=== PATIENT | male | born 1955 | race American Indian/Alaskan Native ===

== ENCOUNTER 2020-10-27 10:17 | Emergency (ER) | payer MEDICARE, MEDICAID, SELFPAY ==
--- NOTE | 2020-10-27 | ECG_ITS ---
Test Reason : CHEST PAIN Blood Pressure : / mmHG Vent. Rate : 077 BPM Atrial Rate : 077 BPM P-R Int : 166 ms QRS Dur : 102 ms QT Int : 400 ms P-R-T Axes : 031 -13 184 degrees QTc Int : 452 ms Sinus rhythm with frequent Premature ventricular complexes Minimal voltage criteria for LVH, may be normal variant ST & T wave abnormality, consider anterolateral ischemia Abnormal ECG When compared with ECG of 27-OCT-2020 10:24, T wave inversion now evident in Anterior leads Referred By: Neema Nesbitt Electronically Signed By:VIET ROUSE
[2020-10-27 10:36] VITALS: BP 133/93; PULSE 86; RESP 18; TEMP 36.7; O2SAT 95; BMI 38.3
--- NOTE | 2020-10-27 10:42 | ECG_ITS ---
Test Reason : DAVIAN PAIN Blood Pressure : / mmHG Vent. Rate : 078 BPM Atrial Rate : 078 BPM P-R Int : 168 ms QRS Dur : 102 ms QT Int : 382 ms P-R-T Axes : 032 -26 163 degrees QTc Int : 435 ms Sinus rhythm with frequent Premature ventricular complexes Moderate voltage criteria for LVH, may be normal variant ST & T wave abnormality, consider lateral ischemia Abnormal ECG No previous ECGs available Referred By: Neema Nesbitt Electronically Signed By:VIET ROUSE
--- NOTE | 2020-10-27 10:43 | ED_ITS ---
HPI - Chest Pain General Chief Complaint: Chest Pain Stated Complaint: chest pain Time Seen by Provider: 10/27/20 10:31 Source: patient Mode of arrival: ambulatory Limitations: no limitations History of Present Illness HPI narrative: Patient comes emergency room complaining of right-sided chest pain. Patient states he has been having intermittent right-sided chest pain, lasting up to 2 seconds at a time. Pain is nonradiating. Patient denies shortness of breath, no cough, no vomiting or diarrhea. At this time, patient states that he is asymptomatic. His symptoms started since last night, symptoms have been ongoing more than 12 hours. Patient denies history of cardiac disease or pulmonary issues. Related Data Previous Rx's Medication Instructions Recorded metoprolol succinate 50 mg 50 mg PO DAILY #30 tab 10/27/20 tablet,extended release 24 hr (Toprol XL) Allergies Allergy/AdvReac Type Severity Reaction Status Date / Time No Known Allergies Allergy Verified 10/27/20 10:42 Review of Systems Review of Systems: Constitutional : No Weight loss, No Fever, No Chills, No Night Sweats, No Fatigue, No Malaise ENT/Mouth : No Hearing loss, No Ear Pain, No Nasal Congestion, No Sinus Pain, No Hoarseness, No sore throat, No Rhinorrhea, No Swallowing Difficulty Eyes: No Eye Pain, No Swelling, No Redness, No Foreign Body, No Discharge, No Vision Changes Cardiovascular : Intermittent chest pain, sharp, right-sided, nonradiating, No SOB, No Dyspnea on Exertion, No Orthopnea, No Edema, No Palpitations Respiratory : No Cough, No Sputum, No Wheezing, No Smoke Exposure, No Dyspnea Gastrointestinal : No Nausea, No Vomiting, No Diarrhea, No Constipation, No abdominal Pain, No Hematochezia, No Melena Genitourinary : no irregular bleeding, No Dysuria, No Urinary Frequency, No Hematuria, No Urinary Incontinence, No Urgency, No Flank Pain, No Urinary Flow Changes, No Hesitancy Musculoskeletal : No joint pain, No Myalgias, No Joint Swelling Skin : No Skin Lesions, No rash Neuro : No Weakness, No Numbness, No Paresthesias, No Loss of Consciousness, No Dizziness, No Headache Psych : No Anxiety/Panic, No Depression, No SI/HI/AH/VH, No Social Issues, Heme/Lymph: No Bruising, No Bleeding,No Lymphadenopathy Endocrine : No Polyuria, No Polydipsia, No Temperature Intolerance [facility] Social History Social History Advance Directives: No Advance Directives Information Provided: No Physical Exam Vital Signs: Vital Signs: Last Vital Signs Temp 97.6 F 10/27/20 13:43 Pulse 68 10/27/20 13:43 Resp 16 10/27/20 13:43 BP 140/88 H 10/27/20 13:43 Pulse Ox 95 10/27/20 13:43 Body Mass Index 38.3 Const: Other: Appearance: Alert. Oriented X3. No acute distress. Eyes: Pupils equal, round and reactive to light. ENT: Pharynx normal. Neck: Normal inspection. Neck supple. No lymph nodes noted. No crepitus CVS: Normal heart rate and rhythm. Pulses normal. Normal S1 and S2 Respiratory: No respiratory distress. Breath sounds normal. No Wheezing. No rales Abdomen: Soft and nontender. No rigidity. No distention. good BS x4 Skin: Skin warm and dry. Normal skin color. Normal skin turgor. Extremities: No lower extremity edema. No Lacerations. No Rash Neuro: Oriented X 3. No motor deficit. No sensory deficit. Moving all extermities. No slurred speech. Course Course Course Narrative: Patient complaining now of rib pain on the right side. Patient given Tylenol. Patient seems to be having symptomatic PVCs, chest discomfort correlates with the monitor when he has PVCs. I discussed the EKG and troponin with Dr. Doll, we will go ahead and obtain a 2nd troponin. If negative, patient can be discharged with 50 mg of metoprolol and follow up with Cardiology Troponin x2 negative. MDM - Chest Pain Lab Data Result diagrams: 10/27/20 11:07 10/27/20 11:07 Labs: Lab Results 10/27/20 10/27/20 10/27/20 Range/Units 11:07 11:07 11:07 WBC 8.5 (4.8-10.8) X10*3/uL RBC 5.41 (4.60-5.80) X10*6/uL Hgb 16.2 (14.0-18.0) g/dl Hct 48.0 (42-52) % MCV 88.7 (80-98) fL MCH 29.9 (27.0-33.0) pg MCHC 33.8 (31.0-36.0) g/dl RDW 12.6 (11.0-16.0) % Plt Count 194 (160-400) X10*3/uL MPV 10.7 (9.4-12.4) fL Immature Gran % (Auto) 0.4 (0.0-0.4) % Neut % (Auto) 59.5 (45-73) % Lymph % (Auto) 32.0 (20-40) % Bailey % (Auto) 6.5 (2-11) % Eos % (Auto) 1.2 (0-4) % Baso % (Auto) 0.4 (0-2) % Lymph # (Auto) 2.7 (1.2-4.9) X10*3/uL Bailey # (Auto) 0.6 (0.1-1.2) X10*3/uL Eos # (Auto) 0.1 (0.0-0.4) X10*3/uL Baso # (Auto) 0.0 (0.0-0.2) X10*3/uL Abs Immat Gran (auto) 0.03 (0.00-0.03) X10*3/uL Absolute Neuts (auto) 5.0 (2.0-8.3) X10*3/uL Absolute Nucleated RBC 0.000 (0.0-0.012) X10*3/uL Nucleated RBC % (auto) 0.0 (0.0-0.2) /100WBC Sodium 139 (135-145) mmol/L Potassium 3.7 (3.3-5.1) mmol/L Chloride 104 (96-108) mmol/L Carbon Dioxide 28 (22-29) mmol/L Anion Gap 11 L (12-20) BUN 10 (9-16) mg/dL Creatinine 0.60 (0.5-1.4) mg/dL Estim Creat Clear Calc 140.2 Estimated GFR > 60 Random Glucose 144 H (60-115) mg/dL Calcium 9.2 (8.4-10.2) mg/dL Total Bilirubin 0.8 (0.0-1.0) mg/dL Direct Bilirubin 0.2 (0.0-0.5) mg/dL AST 25 (5-37) U/L ALT 28 (0-40) U/L Alkaline Phosphatase 105 (39-117) U/L Troponin I High Sens < 3.5 (<3.5-35.0) ng/L Total Protein 7.3 (6.5-8.0) g/dL Albumin 4.0 (3.5-5.0) g/dL Urine Color Urine Appearance Urine pH (5.0-8.0) Ur Specific [place] (1.005-1.025) Urine Protein (NEG-TRACE) MG/DL Urine Glucose (UA) (NEG) MG/DL Urine Ketones (NEG) MG/DL Urine Blood (NEG) Urine Nitrite (NEG) Ur Leukocyte Esterase (NEG) Urine RBC (0) /HPF Urine WBC (0-4) /HPF Ur Squamous Epith Cells /LPF Urine Bacteria /LPF 10/27/20 10/27/20 Range/Units 14:07 14:18 WBC (4.8-10.8) X10*3/uL RBC (4.60-5.80) X10*6/uL Hgb (14.0-18.0) g/dl Hct (42-52) % MCV (80-98) fL MCH (27.0-33.0) pg MCHC (31.0-36.0) g/dl RDW (11.0-16.0) % Plt Count (160-400) X10*3/uL MPV (9.4-12.4) fL Immature Gran % (Auto) (0.0-0.4) % Neut % (Auto) (45-73) % Lymph % (Auto) (20-40) % Bailey % (Auto) (2-11) % Eos % (Auto) (0-4) % Baso % (Auto) (0-2) % Lymph # (Auto) (1.2-4.9) X10*3/uL Bailey # (Auto) (0.1-1.2) X10*3/uL Eos # (Auto) (0.0-0.4) X10*3/uL Baso # (Auto) (0.0-0.2) X10*3/uL Abs Immat Gran (auto) (0.00-0.03) X10*3/uL Absolute Neuts (auto) (2.0-8.3) X10*3/uL Absolute Nucleated RBC (0.0-0.012) X10*3/uL Nucleated RBC % (auto) (0.0-0.2) /100WBC Sodium (135-145) mmol/L Potassium (3.3-5.1) mmol/L Chloride (96-108) mmol/L Carbon Dioxide (22-29) mmol/L Anion Gap (12-20) BUN (9-16) mg/dL Creatinine (0.5-1.4) mg/dL Estim Creat Clear Calc Estimated GFR Random Glucose (60-115) mg/dL Calcium (8.4-10.2) mg/dL Total Bilirubin (0.0-1.0) mg/dL Direct Bilirubin (0.0-0.5) mg/dL AST (5-37) U/L ALT (0-40) U/L Alkaline Phosphatase (39-117) U/L Troponin I High Sens < 3.5 (<3.5-35.0) ng/L Total Protein (6.5-8.0) g/dL Albumin (3.5-5.0) g/dL Urine Color YELLOW Urine Appearance CLEAR Urine pH 6.0 (5.0-8.0) Ur Specific [place] <= 1.005 (1.005-1.025) Urine Protein NEG (NEG-TRACE) MG/DL Urine Glucose (UA) NEG (NEG) MG/DL Urine Ketones NEG (NEG) MG/DL Urine Blood TRACE (NEG) Urine Nitrite NEG (NEG) Ur Leukocyte Esterase TRACE H (NEG) Urine RBC 0-2 (0) /HPF Urine WBC 0-2 (0-4) /HPF Ur Squamous Epith Cells TRACE /LPF Urine Bacteria NONE /LPF ECG Data ECG #1: Attestation: I personally reviewed and interpreted this ECG as follows: (Center rhythm, frequent PVCs, heart rate 78, voltage criteria for left ventricular hypertrophy, T-wave abnormalities in V2 through V6, QTC 435) ECG #2: Attestation: I personally reviewed and interpreted this ECG as follows: (EKG unchanged from 10:24am) Discharge Plan Discharge Clinical Impression: Atypical chest pain Patient Disposition: Home, Self-Care Instructions: Chest Pain (ED) Additional Instructions: Please follow-up with your primary care physician tomorrow. If you have any worsening or new symptoms, please return to the emergency room or call 911 Prescriptions: New metoprolol succinate [Toprol XL] 50 mg tablet extended release 24 hr 50 mg PO DAILY Qty: 30 RF: 0 Referrals: Eric Doll MD [Physician] - 2 days
[2020-10-27] MEDS: Aspirin Enteric Coated 325 MG TABLET.DR PO (10:58)
[2020-10-27 11:12] LABS: Basophils Percent Auto 0.4 % (0-2); Eosinophils Absolute Auto 0.1 X10*3/uL (0.0-0.4); Eosinophils Percent Auto 1.2 % (0-4); Hemoglobin 16.2 g/dl (14.0-18.0); Imm Gran Abs Auto 0.03 X10*3/uL (0.00-0.03); Imm Gran Pct Auto 0.4 % (0.0-0.4); Lymphocytes Absolute Auto 2.7 X10*3/uL (1.2-4.9); MANUAL DIFF FLAG NO; Mean Corpuscular HGB Conc 33.8 g/dl (31.0-36.0); Mean Corpuscular Hemoglobin 29.9 pg (27.0-33.0); Mean Corpuscular Volume 88.7 fL (80-98); Mean Platelet Volume 10.7 fL (9.4-12.4); Monocytes Absolute Auto 0.6 X10*3/uL (0.1-1.2); Monocytes Percent Auto 6.5 % (2-11); Neutrophils Percent Auto 59.5 % (45-73); Platelet Count 194 X10*3/uL (160-400); Red Blood Count 5.41 X10*6/uL (4.60-5.80); Red Cell Distribution Width 12.6 % (11.0-16.0); White Blood Count 8.5 X10*3/uL (4.8-10.8)
[2020-10-27 11:15] VITALS: PULSE 85
[2020-10-27 11:31] LABS: Alanine Aminotransferase 28 U/L (0-40); Alkaline Phosphatase 105 U/L (39-117); Anion Gap 11 (12-20); Aspartate Amino Transferase 25 U/L (5-37); Bilirubin Direct 0.2 mg/dL (0.0-0.5); Bilirubin Total 0.8 mg/dL (0.0-1.0); Blood Urea Nitrogen 10 mg/dL (9-16); Calcium 9.2 mg/dL (8.4-10.2); Carbon Dioxide 28 mmol/L (22-29); Chloride 104 mmol/L (96-108); Creatinine Clr Calc Pharmacy 140.2; Estimated Glomerular Filt Rate > 60; Glucose Random 144 mg/dL (60-115); Potassium 3.7 mmol/L (3.3-5.1); Sodium 139 mmol/L (135-145); Total Protein 7.3 g/dL (6.5-8.0)
[2020-10-27 11:32] LABS: Troponin-I High Sensitivity < 3.5 ng/L (<3.5-35.0)
[2020-10-27 13:43] VITALS: BP 140/88; PULSE 68; RESP 16; TEMP 36.4; O2SAT 95
[2020-10-27] MEDS: traMADoL HCL 50 MG TABLET PO (14:02)
[2020-10-27 14:26] LABS: Glucose Urine UA NEG (NEG); Leukocyte Esterase Urine TRACE (NEG); Nitrite Urine NEG (NEG); Specific Gravity - Urine <= 1.005 (1.005-1.025); UACC Culture Trigger YES; Urine Blood TRACE (NEG); Urine Ketones NEG (NEG); Urine Protein NEG (NEG-TRACE)
[2020-10-27 14:27] LABS: Appearance Urine CLEAR; Color Urine YELLOW
[2020-10-27 14:32] LABS: Troponin-I High Sensitivity < 3.5 ng/L (<3.5-35.0)
[2020-10-27 14:49] LABS: RBC Urine 0-2 /HPF (0); Squamous Epithelial Cell Urine TRACE /LPF; WBC Urine 0-2 /HPF (0-4)
== END 2020-10-27 16:08 | disposition home or self-care (01) ==
PROVIDERS: Emergency Provider Emergency Medicine
DX: R07.89 Other chest pain (principal); Z79.899 Other long term (current) drug therapy
CPT/HCPCS: 36415; 80048; 80076; 81001; 84484; 85025; 87086; 93005; 99283; 99285

== ENCOUNTER → 2020-11-02 08:35 | Outpatient (BNVA) | payer MEDICARE, MEDICAID, SELFPAY | PROVIDERS: Visit Provider Internal Medicine Cardiovascular Disease | DX: I49.3 Ventricular premature depolarization (principal); I10 Essential (primary) hypertension; R07.89 Other chest pain | CPT/HCPCS: 99202 ==

== ENCOUNTER → 2020-12-29 13:23 | Outpatient (BNVA) | payer MEDICARE, MEDICAID, SELFPAY | PROVIDERS: Visit Provider Internal Medicine Cardiovascular Disease ==

== ENCOUNTER 2021-04-28 11:22 | Emergency (ER) | payer MEDICARE, MEDICAID, SELFPAY ==
--- NOTE | ~2021-04-28 | CT_ITS ---
EXAMINATION: CT ABDOMEN AND PELVIS WITH CONTRAST CLINICAL INFORMATION: Lower abdominal pain and diarrhea COMPARISON: None TECHNIQUE: Multidetector volumetric images were obtained from the superior aspect of the liver through the pubic symphysis following administration 85 mL of Omnipaque 350 intravenous contrast. Sagittal and coronal reformatted images were obtained on the technologist's workstation. Oral contrast: Yes This CT examination was performed using dose optimization techniques as appropriate, variously including the following: *Automated exposure control *Adjustment of mA and/or kV according to patient size (this includes techniques or standardized protocols for targeted exams where dose is matched to indication/reason for exam; i.e. extremities or head) *Use of iterative reconstruction technique DLP: 798 mGy-cm FINDINGS: LUNG BASES: The visualized lung bases are unremarkable. LIVER, GALLBLADDER, AND BILIARY TREE: The liver is low in attenuation suggestive of fatty infiltration. No focal liver lesion is seen. The gallbladder is been removed. There is no biliary duct dilatation. PANCREAS: Unremarkable. SPLEEN: Unremarkable. ADRENAL GLANDS: Unremarkable. KIDNEYS AND URETERS: There is a 4 mm stone in the lower pole the right kidney. The overlying cortical thinning or scarring. There are 2 small left renal cyst. No imaging follow-up needed. BLADDER: Not optimally distended. There may be mild diffuse bladder wall thickening. GASTROINTESTINAL TRACT: There is wall thickening of the left colon, sigmoid colon and rectum suggestive of mild proctocolitis. Vasa recta. Prominent inflammatory colitis should. No evidence of obstruction, perforation or abscess is seen. The appendix is normal. Small bowel is normal. ABDOMINAL WALL: There is a small umbilical hernia containing fat. LYMPH NODES: Normal. VASCULAR: Unremarkable. PELVIC VISCERA: Unremarkable. OSSEOUS STRUCTURES: There are postsurgical changes to the lower lumbar spine. CT/CT abdomen pelvis w con IMPRESSION: Wall thickening of the distal colon and rectum suggestive of proctocolitis. Small right renal stone. Left renal cyst. Fatty liver. Fleischner guidelines were followed.
[2021-04-28 11:26] VITALS: BP 183/112; PULSE 84; RESP 18; TEMP 36.6; O2SAT 95; BMI 44.6
[2021-04-28 11:57] LABS: MANUAL DIFF FLAG NO
[2021-04-28 12:04] LABS: Basophils Percent Auto 0.3 % (0-2); Eosinophils Absolute Auto 0.1 X10*3/uL (0.0-0.4); Eosinophils Percent Auto 0.9 % (0-4); Hematocrit 52.1 % (42.0-52.0); Imm Gran Abs Auto 0.03 X10*3/uL (0.00-0.03); Imm Gran Pct Auto 0.3 % (0.0-0.4); Lymphocytes Absolute Auto 3.1 X10*3/uL (1.2-4.9); Lymphocytes Percent Auto 34.8 % (20-40); Mean Corpuscular HGB Conc 32.6 g/dl (31.0-36.0); Mean Corpuscular Hemoglobin 29.1 pg (27.0-33.0); Mean Corpuscular Volume 89.2 fL (80.0-98.0); Mean Platelet Volume 10.6 fL (9.4-12.4); Monocytes Absolute Auto 0.6 X10*3/uL (0.1-1.2); Monocytes Percent Auto 6.3 % (2-11); Neutrophils Absolute Auto 5.2 x10*3/uL (2.0-8.3); Neutrophils Percent Auto 57.4 % (45-73); Platelet Count 197 X10*3/uL (160-400); Red Blood Count 5.84 X10*6/uL (4.60-5.80); Red Cell Distribution Width 12.7 % (11.0-16.0)
[2021-04-28 12:22] LABS: Anion Gap 11 (12-20); Blood Urea Nitrogen 10 mg/dL (9-16); Calcium 9.5 mg/dL (8.4-10.2); Carbon Dioxide 29 mmol/L (22-29); Chloride 103 mmol/L (96-108); Creatinine Clr Calc Pharmacy 101.4; Estimated Glomerular Filt Rate > 60; Glucose Random 159 mg/dL (60-115); Potassium 3.7 mmol/L (3.3-5.1); Sodium 139 mmol/L (135-145)
--- NOTE | 2021-04-28 13:06 | ED_ITS ---
HPI - Abdominal Pain General Chief Complaint: Abdominal Pain Stated Complaint: Lower abd pain Time Seen by Provider: 04/28/21 13:06 Source: patient Mode of arrival: ambulatory Limitations: no limitations History of Present Illness HPI narrative: 65 yo male with history of HTN, PVC's, atypical chest pain who presents to the ER with 2 days of lower abdominal pain and non-bloody diarrhea. He reports the pain is constant and in his entire lower abdomen. He has had for 5 bouts of loose stools today. No nausea or vomiting. Denies fever or chills. No one else at home is sick. He denies any URI symptoms. MD elicited complaint: abdominal pain Pertinent past history: none Onset (ago): day(s) (2) Pain Consistency: constant Location: RLQ and LLQ Severity: moderate Quality: aching Radiation: none Migration to: no migration Exacerbating factors: nothing Relieving factors: nothing Associated symptoms: diarrhea Related Data Home Medications Medication Instructions Recorded Confirmed amlodipine 5 mg tablet 5 mg PO DAILY 11/02/20 11/02/20 Previous Rx's Medication Instructions Recorded levofloxacin 500 mg tablet 500 mg PO DAILY #7 tab 04/28/21 metronidazole 500 mg tablet 500 mg PO BID 10 Days #20 tab 04/28/21 Allergies Allergy/AdvReac Type Severity Reaction Status Date / Time No Known Allergies Allergy Verified 04/28/21 11:29 Review of Systems Review of Systems Constitutional: No Fever, No Chills ENT/Mouth: No sore throat, No Rhinorrhea, No Swallowing Difficulty Eyes: No Eye Pain, No Swelling, No Redness Cardiovascular: No Chest Pain, No SOB, No Orthopnea, No Edema Respiratory: No Cough, No Sputum, No Wheezing, No dyspnea Gastrointestinal: No Nausea, No Vomiting, + Diarrhea, + abdominal Pain, No Hematochezia, No Melena Genitourinary: No Dysuria, No Urinary Frequency, No Hematuria, +erectile d ysfunction Musculoskeletal: No joint pain, No Myalgias Skin: No Skin Lesions, No rash Neuro: No Weakness, No Numbness, No Dizziness, No Headache Psych: +Anxiety/Panic, No Depression Heme/Lymph: No Bruising, No Lymphadenopathy Endocrine: No Polyuria, No Polydipsia PMFSH Past Medical History Medical History HTN (hypertension) PVC (premature ventricular contraction) Social History Social History Advance Directives: No Advance Directives Information Provided: Yes Physical Exam ED Vital Signs: Vital Signs - 24 hr 04/28/21 11:26 04/28/21 15:39 Temperature 97.8 F Pulse Rate 84 73 Respiratory Rate 18 20 Blood Pressure 183/112 H 163/119 H Pulse Oximetry 95 99 BMI result Body Mass Index 44.6 Appearance: Alert. Oriented X3. No acute distress. Eyes: Pupils equal, round and reactive to light. ENT: Pharynx normal. Neck: Normal inspection. Neck supple. CVS: Normal heart rate and rhythm. Pulses normal. Respiratory: No respiratory distress. Breath sounds normal. Abdomen: Obese, Soft with lower abdominal tenderness bilaterally and suprapubically, normal +BS x4 Skin: Skin warm and dry. Normal skin color. Normal skin turgor. No rashes. Extremities: No lower extremity edema. Neuro: Oriented X 3. No motor deficit. No sensory deficit. Course Course Course Narrative: 65-year-old male with history of hypertension presents to the ER for evaluation oral pain and diarrhea for the last 2 days. Diarrhea is nonbloody. He has no fever, vomiting or other infectious symptoms. He has some lower abdominal tenderness. Will get lab workup and CT scan of the abdomen to rule out diverticulitis. Reevaluation(s) Reevaluation #1: No leukocytosis. Chemistries unremarkable. His CT scan is showing a mild proctocolitis with wall thickening of the distal colon and rectum. Patient denies any rectal foreign bodies or rectal intercourse. Will treat with oral Levaquin x1 week and Flagyl times 10 days. Will refer to GI for further evaluation. He is tolerating p.o. and has had no episode of diarrhea here. He is stable for discharge home with outpatient follow-up. Reevaluation #2: Prior to discharge patient reports he wants his heart to be evaluated. His blood pressure is 160/100. He is on Norvasc but is intermittently compliant. He denies shortness of breath or chest pain, but thought he heard a funny noise in his heart last night when he was breathing. Will get EKG for patient reassurance. Reevaluation #3: EKG without STEMI or ischemic changes. Patient reassured. Patient is stable for discharge home. Encourage follow-up with his registered physical therapist if he would like further cardiac workup. He has no cardiac symptoms and no respiratory complaints. Stable for DC home with outpatient follow-up for proctocolitis. Given numbers for PCPs. He does not have one. MDM - Abdominal Pain Medical Records Attestation: I reviewed the patient's medical records. Lab Data Attestation: I reviewed the patient's lab results. Result diagrams: 04/28/21 11:55 04/28/21 11:55 Labs: Lab Results 04/28/21 04/28/21 04/28/21 Range/Units 11:55 11:55 13:11 WBC 9.0 (4.8-10.8) X10*3/uL RBC 5.84 H (4.60-5.80) X10*6/uL Hgb 17.0 (14.0-18.0) g/dl Hct 52.1 H (42.0-52.0) % MCV 89.2 (80.0-98.0) fL MCH 29.1 (27.0-33.0) pg MCHC 32.6 (31.0-36.0) g/dl RDW 12.7 (11.0-16.0) % Plt Count 197 (160-400) X10*3/uL MPV 10.6 (9.4-12.4) fL Immature Gran % (Auto) 0.3 (0.0-0.4) % Neut % (Auto) 57.4 (45-73) % Lymph % (Auto) 34.8 (20-40) % [place] % (Auto) 6.3 (2-11) % Eos % (Auto) 0.9 (0-4) % Baso % (Auto) 0.3 (0-2) % Lymph # (Auto) 3.1 (1.2-4.9) X10*3/uL [place] # (Auto) 0.6 (0.1-1.2) X10*3/uL Eos # (Auto) 0.1 (0.0-0.4) X10*3/uL Baso # (Auto) 0.0 (0.0-0.2) X10*3/uL Abs Immat Gran (auto) 0.03 (0.00-0.03) X10*3/uL Absolute Neuts (auto) 5.2 (2.0-8.3) x10*3/uL Absolute Nucleated RBC 0.000 (0.0-0.012) X10*3/uL Nucleated RBC % (auto) 0.0 (0.0-0.2) /100WBC Sodium 139 (135-145) mmol/L Potassium 3.7 (3.3-5.1) mmol/L Chloride 103 (96-108) mmol/L Carbon Dioxide 29 (22-29) mmol/L Anion Gap 11 L (12-20) BUN 10 (9-16) mg/dL Creatinine 0.86 (0.5-1.4) mg/dL Estim Creat Clear Calc 101.4 Estimated GFR > 60 Random Glucose 159 H (60-115) mg/dL Calcium 9.5 (8.4-10.2) mg/dL Urine Color DK YELLOW Urine Appearance CLEAR Urine pH 6.0 (5.0-8.0) Ur Specific [place] >= 1.030 H (1.005-1.025) Urine Protein 1+ H (NEG-TRACE) MG/DL Urine Glucose (UA) NEG (NEG) MG/DL Urine Ketones 5 (NEG) MG/DL Urine Blood NEG (NEG) Urine Nitrite NEG (NEG) Ur Leukocyte Esterase NEG (NEG) Urine RBC 0 (0) /HPF Urine WBC 0 (0-4) /HPF Ur Squamous Epith Cells NONE /LPF Urine Bacteria NONE /LPF Urine Mucus 3+ /LPF ECG Data Attestation: I personally reviewed and interpreted this ECG as follows: ECG interpretation date: 04/28/21 ECG interpretation time: 15:48 Prior ECG tracings: available for review Interpretation: Sinus rhythm with occasional PVCs, heart rate 70 beats per minute, normal OR interval, normal QTC, moderate voltage for LVH, no ST segment elevations or depressions. Discharge Plan Discharge Clinical Impression: Proctocolitis Patient Disposition: Home, Self-Care Instructions: Proctitis (ED), Colitis (ED) Additional Instructions: Take the prescribed antibiotic as directed. Your CT scan showed mild inflammation of your colon and rectum. Follow up with your doctor and GI specialist - name and number below If you develop new or worsening symptoms call 911 or come back to the ER for further evaluation. Prescriptions: New levofloxacin 500 mg tablet 500 mg PO DAILY Qty: 7 0RF metronidazole 500 mg tablet 500 mg PO BID 10 Days Qty: 20 0RF No Action amlodipine 5 mg tablet 5 mg PO DAILY 0RF Referrals: Ford Collier MD [Physician] - 2 days (Erectile dysfunction) Erik Bell [Physician] - 1 week (mild proctocolitis) Interventions: ED Discharge Assessment Last Done: 04/28/21 15:45 Discharge Date/Time: 04/28/21 15:45
[2021-04-28 13:17] LABS: Appearance Urine CLEAR; Color Urine DK YELLOW; Glucose Urine UA NEG (NEG); Leukocyte Esterase Urine NEG (NEG); Nitrite Urine NEG (NEG); Specific Gravity - Urine >= 1.030 (1.005-1.025); UACC Culture Trigger NO; Urine Blood NEG (NEG); Urine Ketones 5 MG/DL (NEG); Urine Protein 1+ MG/DL (NEG-TRACE)
[2021-04-28 13:31] LABS: Mucus Urine 3+ /LPF; RBC Urine 0 /HPF (0); WBC Urine 0 /HPF (0-4)
[2021-04-28] MEDS: iohexoL 350 MG/ML 100 ML INFUS..BTL 85 ML IV (14:00)
--- NOTE | 2021-04-28 15:24 | ECG_ITS ---
Test Reason : parveen Blood Pressure : / mmHG Vent. Rate : 070 BPM Atrial Rate : 070 BPM P-R Int : 178 ms QRS Dur : 096 ms QT Int : 404 ms P-R-T Axes : 000 -23 -31 degrees QTc Int : 436 ms Sinus rhythm with occasional Premature ventricular complexes Moderate voltage criteria for LVH, may be normal variant ( R in aVL , Davi product ) Nonspecific T wave abnormality Abnormal ECG When compared with ECG of 27-OCT-2020 10:48, T wave inversion no longer evident in Anterior leads Referred By: Yris Navas Electronically Signed By:Nehemiah Lau
[2021-04-28 15:39] VITALS: BP 163/119; PULSE 73; RESP 20; O2SAT 99
== END 2021-04-28 15:45 | disposition home or self-care (01) ==
PROVIDERS: Emergency Provider Emergency Medicine
DX: K52.29 Other allergic and dietetic gastroenteritis and colitis (principal); R10.31 Right lower quadrant pain; R10.32 Left lower quadrant pain; R19.7 Diarrhea, unspecified; Z79.899 Other long term (current) drug therapy
CPT/HCPCS: 36415; 74177; 80048; 81001; 85025; 93005; 99284; Q9967

== ENCOUNTER 2021-05-30 15:57 | Emergency (ER) | payer MEDICARE, MEDICAID, SELFPAY ==
[2021-05-30 16:33] VITALS: BP 160/98; PULSE 72; RESP 16; TEMP 36.9; O2SAT 96; BMI 37.8
--- NOTE | 2021-05-30 16:52 | ED_ITS ---
HPI - General Adult General Chief complaint: General Medical Stated complaint: neesd refill on BP meds, Dr sent him here Time Seen by Provider: 05/30/21 16:52 Source: patient Mode of arrival: ambulatory Limitations: no limitations History of Present Illness HPI narrative: 65 y/o male with history of HTN, PVC's, hx proctocolitis, poor compliance who presents to the ER for lisinopril refill. He states he used to live in [place] and since he moved to [place] he has not seen a Primary Care doctor to continue prescribing his medications. He called his doctor there who told him to come to the hospital for medication refill. He also states he has intermittent right sided chest pains that started yesterday, very mild 1/10 not associated with any SOB, nausea, diaphoresis. Pain does not radiate and it is described as a twinge. Similar episodes in the past. He has seen Cardiology in the past with plan for stress test, ECHO and Holter monitor but he never followed up. He says he went to [place] and forgot to follow up. MD complaint: med refill Onset (ago): day(s) (1) Location: chest Radiation: non-radiation Severity: mild Severity scale (1-10): 1 Quality: sharp Pain Consistency: intermittent Relieving factors: none Exacerbating factors: none Associated symptoms: denies other symptoms Treatments prior to arrival: none Related Data Home Medications Medication Instructions Recorded Confirmed amlodipine 5 mg tablet 5 mg PO DAILY 11/02/20 11/02/20 Previous Rx's Medication Instructions Recorded levofloxacin 500 mg tablet 500 mg PO DAILY #7 tab 04/28/21 metronidazole 500 mg tablet 500 mg PO BID 10 Days #20 tab 04/28/21 lisinopril 10 mg tablet 10 mg PO DAILY #30 tab 05/30/21 pantoprazole 40 mg tablet,delayed 40 mg PO DAILY #30 tab 05/30/21 release (Protonix) Allergies Allergy/AdvReac Type Severity Reaction Status Date / Time No Known Allergies Allergy Verified 05/30/21 16:32 Review of Systems Review of Systems: Constitutional: No Fever, No Chills ENT/Mouth: No sore throat, No Rhinorrhea Eyes: No Eye Pain, No Swelling, No Redness, No vision changes Cardiovascular: + Chest Pain, No SOB, No Orthopnea, No Edema Respiratory: No Cough, No Sputum, No Wheezing, No dyspnea Gastrointestinal: No Nausea, No Vomiting, No abdominal Pain Genitourinary: No Dysuria, No Urinary Frequency, No Hematuria Musculoskeletal: No joint pain, No Myalgias Skin: No Skin Lesions, No rash Neuro: No Weakness, No Numbness, No Dizziness, No Headache Psych: No Anxiety/Panic, No Depression COUNTS INCLUDE 234 BEDS AT THE [facility] Past Medical History Medical History HTN (hypertension) PVC (premature ventricular contraction) Social History Social History Advance Directives: No Advance Directives Information Provided: Yes Physical Exam ED Vital Signs: Vital Signs - 24 hr 05/30/21 16:33 Temperature 98.5 F Pulse Rate 72 Respiratory Rate 16 Blood Pressure 160/98 H Pulse Oximetry 96 BMI result Body Mass Index 37.8 Appearance: Alert. Oriented X3. No acute distress. Eyes: Pupils equal, round and reactive to light. ENT: Pharynx normal. Neck: Normal inspection. Neck supple. CVS: Normal heart rate and rhythm. Pulses normal. Respiratory: No respiratory distress. Breath sounds normal. Abdomen: Soft and nontender. +BS x4 Skin: Skin warm and dry. Normal skin color. Normal skin turgor. No rashes. Extremities: No lower extremity edema. No calf tenderness or swelling Neuro: Oriented X 3. No motor deficit. No sensory deficit. Steady gait Course Course Course Narrative: 65 yo male with history of HTN, PVC's, atypical chest pain seen by Cardiology last Fall who presents to the ER for medication refill as well as very mild right sided chest pain x1 day, similar to prior but not as bad. BP 160/98, last took his lisinopril yesterday. Will get EKG. Doubt ACS given history and description of pain. Reevaluation(s) Reevaluation #1: EKG unchanged, no ischemic changes. Stable for d/c home with lisinopril 10 mg qd, will give 1 month supply. Discussed importance of outpatient follow up and establishing a PCP here. Info and phone # given. Stable for d/c home. Medical Decision Making ECG Data Attestation: I personally reviewed and interpreted this ECG as follows: Prior ECG tracings: available for review Interpretation: normal sinus rhythm with occasional PVCs, no ST segment elevations or depressions, no change from prior 1 month ago Critical Care Time Critical Care Time Critical Care Time: No Discharge Plan Discharge Clinical Impression: HTN (hypertension) Patient Disposition: Home, Self-Care Instructions: Chronic Hypertension (DC) Additional Instructions: Take the prescribed blood pressure medication as directed. FOLLOW UP WITH A PRIMARY CARE DOCTOR SOON POSSIBLE Also recommend following up with [facility] for further workup as suggested on your previous visit back in October - name and number below. Call for an appointment. If you develop new or worsening symptoms call 911 or come back to the ER for further evaluation. Prescriptions: New lisinopril 10 mg tablet 10 mg PO DAILY Qty: 30 0RF pantoprazole [Protonix] 40 mg tablet,delayed release (DR/EC) 40 mg PO DAILY Qty: 30 0RF No Action levofloxacin 500 mg tablet 500 mg PO DAILY Qty: 7 0RF metronidazole 500 mg tablet 500 mg PO BID 10 Days Qty: 20 0RF amlodipine 5 mg tablet 5 mg PO DAILY 0RF Referrals: Eric Doll MD [Physician] - 1 week (follow up chest pain, HTN)
--- NOTE | 2021-05-30 16:57 | ECG_ITS ---
Test Reason : CHEST PAIN Blood Pressure : / mmHG Vent. Rate : 077 BPM Atrial Rate : 077 BPM P-R Int : 170 ms QRS Dur : 094 ms QT Int : 390 ms P-R-T Axes : 026 -08 037 degrees QTc Int : 441 ms Sinus rhythm with occasional Premature ventricular complexes Nonspecific T wave abnormality Abnormal ECG When compared with ECG of 28-APR-2021 15:24, No significant change was found Referred By: Yris Navas Electronically Signed By:ZULEMA VASQUEZ MD
== END 2021-05-30 17:36 | disposition home or self-care (01) ==
PROVIDERS: Emergency Provider Internal Medicine
DX: I10 Essential (primary) hypertension (principal); Z76.0 Encounter for issue of repeat prescription; I49.3 Ventricular premature depolarization
CPT/HCPCS: 93005; 99283; 99284

== ENCOUNTER 2021-08-03 07:29 | Outpatient (REF) | payer MEDICARE, MEDICAID, SELFPAY ==
--- NOTE | ~2021-08-03 | XR_ITS ---
EXAMINATION: XR CERVICAL SPINE CLINICAL INFORMATION: Pain COMPARISON: None TECHNIQUE: 4 views of the cervical spine including swimmer's view were obtained. FINDINGS: Bone alignment is normal. No fracture or dislocation is seen. There is degenerative spondylosis at C4-C5 C5-C6 and C6-C7. Prevertebral soft tissues are normal. XR/XR cervical spine 3V IMPRESSION: Mild degenerative changes.
--- NOTE | ~2021-08-03 | XR_ITS ---
EXAMINATION: XR LUMBOSACRAL SPINE CLINICAL INFORMATION: Low back pain COMPARISON: Previous CT of the abdomen and pelvis April 2021 TECHNIQUE: Three views of the lumbosacral spine. FINDINGS: There are postsurgical changes to the lower spine with posterior fusion hardware and interpedicular screws at L4-L5 and S1. There is a disc interspace her at L3 L5. Orthopedic hardware appears intact. No fracture or dislocation is seen. There is degenerative spondylosis of the lower thoracic spine and at L1-L2. Disc spaces are otherwise normal. There is a small 4 mm right renal stone. XR/XR lumbar spine 2-3V IMPRESSION: Mild degenerative spondylosis. Postsurgical changes to the lower lumbar sacral spine. Small right renal stone.
[2021-08-03 08:43] LABS: Hematocrit 53.9 % (42.0-52.0); Hemoglobin 17.6 g/dl (14.0-18.0); Mean Corpuscular HGB Conc 32.7 g/dl (31.0-36.0); Mean Corpuscular Hemoglobin 29.5 pg (27.0-33.0); Mean Corpuscular Volume 90.3 fL (80.0-98.0); Mean Platelet Volume 11.4 fL (9.4-12.4); Platelet Count 164 X10*3/uL (160-400); Red Blood Count 5.97 X10*6/uL (4.60-5.80); White Blood Count 8.3 X10*3/uL (4.8-10.8)
== END 2021-08-03 07:30 | disposition home or self-care (01) ==
LOC: HO.LAB 07:29
PROVIDERS: PCP Physician Assistant; Visit Provider Physician Assistant
DX: M54.2 Cervicalgia (principal); M54.50 Low back pain, unspecified; I10 Essential (primary) hypertension
CPT/HCPCS: 36415; 72040; 72100; 80053; 80061; 84153; 84443; 85027

== ENCOUNTER 2021-08-08 07:41 | Outpatient (REF) | payer MEDICARE, MEDICAID, SELFPAY ==
[2021-08-08 08:33] LABS: Alanine Aminotransferase 30 U/L (0-40); Albumin Level 4.2 g/dL (3.5-5.0); Alkaline Phosphatase 109 U/L (39-117); Anion Gap 13 (12-20); Aspartate Amino Transferase 23 U/L (5-37); Bilirubin Total 0.8 mg/dL (0.0-1.0); Blood Urea Nitrogen 11 mg/dL (9-16); Carbon Dioxide 28 mmol/L (22-29); Chloride 104 mmol/L (96-108); Cholesterol 159 mg/dL; Estimated Glomerular Filt Rate > 60; Glucose Fasting 102 mg/dL (60-99); HDL Cholesterol 34 mg/dL; LDL Cholesterol Calculated 101 mg/dl; Potassium 4.3 mmol/L (3.3-5.1); Sodium 141 mmol/L (135-145); Total Protein 7.5 g/dL (6.5-8.0); Triglycerides 120 mg/dL
[2021-08-08 08:58] LABS: Prostate Specific Antigen Scr 0.43 ng/mL (<0.05-4.0); TSH reflex Free T4 1.97 uIU/mL (0.32-4.0)
== END 2021-08-08 07:42 | disposition home or self-care (01) ==
LOC: HO.LAB 07:41
PROVIDERS: PCP Physician Assistant; Visit Provider Physician Assistant
DX: Z12.5 Encounter for screening for malignant neoplasm of prostate (principal); I10 Essential (primary) hypertension
CPT/HCPCS: 36415; 80053; 80061; 84153; 84443

== ENCOUNTER → 2021-08-21 10:14 | Outpatient (REF) | payer MEDICARE, MEDICAID, SELFPAY ==
--- NOTE | 2021-08-21 10:20 | CA_ITS ---
Acquisition Time: 2021-08-21 10:40:48 Total Exercise Time: 00:03:56 Test Indications: CHEST PAIN Medications: Protocol: YOVANI Max HR: 133 BPM 85% of Pred: 156 BPM Max BP: 156/088 mmHG Max Work Load: 5.7 METS Exercise stress test with exercise 3 min 56 sec of Yovani protocol, achieving 85% MPHR, with mild to moderate sob, no chest discomfort. with leg fatigue and request to stop, with frequent multifocal PVCs and cuplets, Isolated PACs, with normotensive response to exercise, with nondiagnostic EKG for ischemia due to baseline EKG abnormality. Test reviewed with Dr Conroy. Referred By: Eric Doll Overread By: CASSIE TAYLOR
== END ==
LOC: HO.CARD 10:14
PROVIDERS: PCP Physician Assistant; Visit Provider Physician Assistant
DX: R07.89 Other chest pain (principal)
CPT/HCPCS: 93017

== ENCOUNTER → 2021-08-24 10:05 | Outpatient (REF) | payer MEDICARE, MEDICAID, SELFPAY ==
--- NOTE | ~2021-08-24 | NM_ITS ---
Lexiscan Myocardial perfusion study Indication: Abnormal EKG, assess for coronary disease ischemia Technique: The patient was brought in for a Lexiscan perfusion study on 08/24/2021 and was injected 0.4 mg of Lexiscan intravenously. Within a minute of this injection 35 mCi of sestamibi was given intravenously. Images were obtained using the SPECT gamma camera interlaced with the gating device. Images were obtained in supine position. Resting perfusion study was performed on 08/25/2021. Patient was administered 35 mCi of sestamibi intravenously at rest. Images were then obtained in supine position. Images were processed with the software and compared side to side in short axis, horizontal long axis and vertical long axis views. Findings: Raw acquisition reviewed. The stress perfusion study showed diminished tracer uptake along the inferior wall from basal to midportion. There is improvement with CT attenuation correction suggestive of diaphragmatic attenuation artifact. The gated study shows diminished systolic function with calculated LVEF of 36%. LV cavity is dilated in size. The gated study shows globally reduced wall thickening and contraction of segments. Resting study shows diminished tracer uptake along the inferior wall that appears worse than stress acquisition. There is improvement with CT attenuation correction but not entirely. Suspect diaphragmatic attenuation artifact. Gating at rest reveals globally reduced wall motion with ejection fraction at 44%. The findings are consistent with fixed inferior perfusion defect. No reversible defects. NM/NM cardiolite stress test Impression: 1. Myocardial perfusion imaging study shows no clear evidence of ischemia or infarction. Likely diaphragmatic attenuation in the inferior wall. 2. Gated LVEF is 36% during stress and 44% during rest. Correlate with echocardiogram. 3. Transient ischemic dilatation ratio 1.13. EKG component of the test reported separately.
--- NOTE | 2021-08-24 10:08 | CA_ITS ---
Acquisition Time: 2021-08-24 10:18:38 Total Exercise Time: 00:02:00 Test Indications: ABN EKG Medications: SEE CHART Protocol: LEXISCAN Max HR: 106 BPM 67% of Pred: 156 BPM Max BP: 142/090 mmHG Max Work Load: 1.6 METS Pharmacological stress test with Lexiscan injection, while walking slow on treadmill, without anginal symptoms, with frequent multifocal PVC and ventricular cuplets, with elevated BP at baseline and normotensive response to injection, with nondiagnostic EKG for ischemia. Nuclear images pending. Test reviewed with Dr Conroy. Referred By: Verónica Zapien Overread By: VERÓNICA ZAPIEN
== END ==
LOC: HO.CARD 10:05
PROVIDERS: PCP Physician Assistant; Visit Provider Nurse Practitioner Family
DX: R07.89 Other chest pain (principal); R94.39 Abnormal result of other cardiovascular function study; I49.3 Ventricular premature depolarization
CPT/HCPCS: 78452; 93017; A9500; J0280; J2785

== ENCOUNTER → 2021-08-30 10:23 | Outpatient (BNVA) | payer MEDICARE, MEDICAID, SELFPAY | PROVIDERS: PCP Physician Assistant; Referring Provider Physician Assistant; Visit Provider Internal Medicine Cardiovascular Disease | DX: I51.9 Heart disease, unspecified (principal); I49.3 Ventricular premature depolarization; I10 Essential (primary) hypertension; Z79.899 Other long term (current) drug therapy | CPT/HCPCS: 93005; 99212 ==

== ENCOUNTER → 2021-09-22 08:55 | Outpatient (REF) | payer MEDICARE, MEDICAID, SELFPAY ==
--- NOTE | 2021-09-22 09:01 | HM_ITS ---
* Total monitoring time 3 days and 2 hours. * Underlying rhythm is sinus. Average rate 76/Min. Range 54 to 113/Min. * Frequent supraventricular ectopy. 81 episodes. Longest 16 beats. [place] 7%. * Frequent ventricular ectopy. 2 morphologies. 1823 couplets. 51 episodes; longest 5 beats. In some areas, difficult to say if ventricular or supraventricular in nature. Overall burden 11%. * No clear patient events described. MTDD
--- NOTE | 2021-09-22 09:01 | CA_ITS ---
Transthoracic Echocardiogram Patient (Last, First, Middle): Kofi Ambriz S Gender: Male Date of : 1955 Age: 65 Procedure Date: 09/22/2021 Procedure Type: Transthoracic Echocardiogram Location: OP Height: 167.64 cm Weight: 104.33 kg BSA: 2.12 m2 Heart Rate: bpm BP: 132 / 78 mmHg Change Room Attendant: Referring MD: Eric Doll MD Nail Professional: Kendell Conroy MD Symptoms: I49.V VENTRICULAR PREMATURE DEPOLARIZATION, PVC'S , I51.9 Study Quality: Fair ECG Rhythm: Sinus with PVCs Conclusions: - The left ventricular systolic function is mildly decreased. The calculated ejection fraction is 49% by biplane method. - There is severely increased left ventricular wall thickness (limited endocardial definition). - The basal inferior segment is akinetic. - The basal inferoseptal segment is hypokinetic. - No obvious valvular pathology seen on this study. - There is mild dilatation of the ascending aorta measuring 4.20 cm. Findings Left Ventricle Normal left ventricular cavity size. There is severely increased left ventricular wall thickness. The left ventricular systolic function is mildly decreased. The calculated ejection fraction is 49% by biplane method. There is mild global hypokinesis. Diastolic function is normal for age. Wall Motion Rest Echo Findings The basal inferoseptal segment is hypokinetic. The basal inferior segment is akinetic. Right Ventricle Normal right ventricular cavity size. There is low normal right ventricular systolic function. Atria Both atria are normal in size. Aortic Valve There is a normal trileaflet aortic valve. There is no aortic valve stenosis. There is no aortic valve regurgitation. Mitral Valve The mitral valve appears normal. There is trace mitral valve regurgitation. There is no mitral valve stenosis. Pulmonic Valve The pulmonic valve is likely normal. Tricuspid Valve There is no tricuspid valve regurgitation. Tricuspid regurgitation envelope is inadequate for calculation of right ventricular systolic pressure. Great Vessels There is mild dilatation of the ascending aorta measuring 4.20 cm. Venous The inferior vena cava is normal in size and collapses greater than 50% with inspiration. Pericardium/Pleural There is no evidence of pericardial effusion. Prior Study Comparison No prior study available for comparison. Recommendations, Care & Conclusions No obvious valvular pathology seen on this study. Measurements 2D Linear Measurements IVSd: 1.51 0.6-0.9/0.6-1.0 cm LVIDd: 4.53 3.9-5.3/4.2-5.9 cm LVIDd Index: 2.14 2.4-3.2/2.2-3.1 cm/m2 LVIDs: 2.61 2.0-3.6 cm LVPWd: 1.55 0.7-1.1 cm Ao Root: 3.70 2.1-3.5 cm LA Diam: 3.60 2.7-3.8/3.0-4.0 cm LAIDs Index: 1.70 1.5-2.3 cm/m2 LV Mass: 358.06 67-162/88-224 g LV Mass Index: 168.89 43-95/49-115 g/m2 LVOT Diam: 2.30 3.0+(-)1.3 cm 2D Systolic Function EF 4C: 53.50 >55% EF 2C: 45.70 >55% EF BiP: 49.40 >55% Mitral Valve MV Pk E: 0.34 MV PK A: 0.73 MV Decel Time: 107.00 E/A: 0.50 E'Lateral: 8.70 E'Medial: 4.24 E/E' Med: 8.10 E/E' Lat: 3.90 PHT: 31.00 MVA PHT: 7.10 Decel Cass: 3.20 Aortic Valve AoV Pk Sami: 1.74 AoV Mn Sami: 1.08 AoV VTI: 0.34 AoV Pk Grad: 12.00 Aov Mn Grad: 6.00 FATUMA Cont.VTI: 1.80 LVOT LVOT Pk Sami: 0.70 LVOT Mn Sami: 0.50 LVOT VTI: 0.15 LVOT Pk Grad: 2.00 LVOT Mn Grad: 1.00 LVOT Diam: 2.30 LVOT Area: 4.15 Diastolic Function MV Pk E: 0.34 MV Pk A: 0.73 E/A: 0.50 E'Medial: 4.24 E/E' Med: 8.10 E' Laterial: 8.70 E/E' Lat: 3.90 Right Ventricle TAPSE (mm): 17.00 TVS' Sami: 7.00 Great Vessels Aorta Ao Root-2D: 3.70 2.0-3.7 cm Ao Asc: 4.20 2.1-3.4 cm Pulmonary Valve PV Pk Sami: 1.22 Peak PV Grad: 6.00 Updated in Other Vendor System with Status of Final Kendell Conroy MD electronically signed on 09/23/2021 1:34:46 PM with status of Final
== END ==
LOC: HO.CARD 08:55
PROVIDERS: PCP Physician Assistant; Visit Provider Physician Assistant
DX: I10 Essential (primary) hypertension (principal); I49.3 Ventricular premature depolarization
CPT/HCPCS: 93242; 93306

== ENCOUNTER → 2021-09-27 13:33 | Outpatient (BNVA) | payer MEDICARE, MEDICAID, SELFPAY | PROVIDERS: PCP Physician Assistant; Referring Provider Physician Assistant; Visit Provider Internal Medicine Cardiovascular Disease | DX: I42.9 Cardiomyopathy, unspecified (principal); I49.3 Ventricular premature depolarization; Z79.899 Other long term (current) drug therapy | CPT/HCPCS: 99212 ==

== ENCOUNTER 2022-01-15 12:11 | Emergency (ER) | payer MEDICARE, MEDICAID, SELFPAY ==
--- NOTE | ~2022-01-15 | US_ITS ---
EXAMINATION: US SCROTUM CLINICAL INFORMATION: Bilateral testicular pain. COMPARISON: None TECHNIQUE: A sonogram of the scrotum was performed assessing ramos-scale appearance and color Doppler flow. Spectral Doppler analysis of the arterial and venous flow were performed in the testes bilaterally. FINDINGS: RIGHT: Right testicle measures 5.19 x 2.39 x 2.57 cm, volume 16.7 mL. No focal testicular parenchymal lesions are visualized. Spectral Doppler analysis of the arterial and venous flow is normal in the right testis. Right epididymal head is normal in size. No right hydrocele or varicocele is seen. Right epididymal Doppler flow is normal. LEFT: Left testicle measures 5.03 x 2.31 x 3.35 cm, volume 20.4 mL. No focal testicular parenchymal lesions are visualized. Spectral Doppler analysis of the arterial and venous flow is normal in the left testis. Left epididymal head is normal in size. No left hydrocele seen. There is left small varicocele noted. Left epididymal Doppler flow is normal. US/US scrotum IMPRESSION: Small left varicocele. Otherwise normal ultrasound of the testes with normal Doppler flow.
--- NOTE | ~2022-01-15 | US_ITS ---
EXAMINATION: US SCROTUM CLINICAL INFORMATION: Bilateral testicular pain. COMPARISON: None TECHNIQUE: A sonogram of the scrotum was performed assessing ramos-scale appearance and color Doppler flow. Spectral Doppler analysis of the arterial and venous flow were performed in the testes bilaterally. FINDINGS: RIGHT: Right testicle measures 5.19 x 2.39 x 2.57 cm, volume 16.7 mL. No focal testicular parenchymal lesions are visualized. Spectral Doppler analysis of the arterial and venous flow is normal in the right testis. Right epididymal head is normal in size. No right hydrocele or varicocele is seen. Right epididymal Doppler flow is normal. LEFT: Left testicle measures 5.03 x 2.31 x 3.35 cm, volume 20.4 mL. No focal testicular parenchymal lesions are visualized. Spectral Doppler analysis of the arterial and venous flow is normal in the left testis. Left epididymal head is normal in size. No left hydrocele seen. There is left small varicocele noted. Left epididymal Doppler flow is normal. US/US scrotum doppler IMPRESSION: Small left varicocele. Otherwise normal ultrasound of the testes with normal Doppler flow.
[2022-01-15 12:19] VITALS: BP 112/90; PULSE 74; RESP 18; TEMP 36.8; O2SAT 97; BMI 35.4
--- NOTE | 2022-01-15 12:24 | ED_ITS ---
HPI - Male Genitourinary General Chief complaint: Urogenital-Male <Silverio Torres DO - Last Filed: 01/15/22 12:26> Stated complaint: lower abd pain <Silverio Torres DO - Last Filed: 01/15/22 12:26> Time Seen by Provider: 01/15/22 12:34 <Silverio Torres DO - Last Filed: 01/15/22 12:26> Source: patient <MARLA Vitale - Last Filed: 01/15/22 14:59> Mode of arrival: ambulatory <MARLA Vitael - Last Filed: 01/15/22 14:59> Limitations: no limitations <MARLA Vitale Last Filed: 01/15/22 14:59> History of Present Illness HPI Narrative: Patient is a 66 year old assigned male at with a history of GERD and HTN presenting to the emergency department today with bilateral testicular pain and difficulty getting an erection. Patient states that for the last few months he has had bilateral testicular pain and has been having a difficult time getting an erection for the last few years. Patient denies any dizziness, lightheadedness, abdominal pain, nausea, vomiting, fever, chills, blurry vision, double vision, loss of vision, chest pain, difficulty breathing, shortness of breath, back pain, night sweats, pain with urination, increased urinary frequency, increased urinary urgency, blood in his urine or stool, syncope or a near syncopal episode, recent trauma or falls, bowel incontinence, bladder incontinence, bowel retention, bladder retention, or any other complaints at this time. <MARLA Vitale - Last Filed: 01/15/22 14:59> MD Complaint: testicle pain <MARLA Vitale - Last Filed: 01/15/22 14:59> Onset (ago): week(s) <MARLA Vitale Last Filed: 01/15/22 14:59> Duration: constant <MARLA Vitale Last Filed: 01/15/22 14:59> Location: right testicle and left testicle <MARLA Vitale Last Filed: 01/15/22 14:59> Severity: mild <MARLA Vitale Last Filed: 01/15/22 14:59> Severity scale (1-10): 3 <MARLA Vitale - Last Filed: 01/15/22 14:59> Quality: aching and dull <MARLA Vitale Last Filed: 01/15/22 14:59> Relieving factors: none <MARLA Vitale Last Filed: 01/15/22 14:59> Exacerbating factors: none <MARLA Vitale Last Filed: 01/15/22 14:59> Associated symptoms: Reports denies other symptoms <MARLA Vitale - Last Filed: 01/15/22 14:59> Related Data Home medications: Previous Rx's Medication Instructions Recorded amlodipine 5 mg tablet 5 mg PO DAILY 90 days #90 tabs 08/02/21 naproxen 500 mg tablet 500 mg PO BID 30 days #60 tabs 08/02/21 pantoprazole 40 mg tablet,delayed 40 mg PO DAILY 90 days #90 tabs 08/02/21 release (Protonix) sildenafil 100 mg tablet 100 mg PO DAILY 5 days #5 tabs 08/02/21 lisinopril 20 mg tablet 20 mg PO DAILY 90 days #90 tabs 09/13/21 tamsulosin 0.4 mg capsule (Flomax) 0.4 mg PO DAILY #90 caps 09/13/21 carvedilol 3.125 mg tablet 3.125 mg PO BID #60 tabs 12/05/21 doxycycline hyclate 100 mg tablet 100 mg PO BID 7 days #14 tabs 01/15/22 <Silverio Torres DO - Last Filed: 01/15/22 12:26> Allergies/Adverse reactions: Allergies Allergy/AdvReac Type Severity Reaction Status Date / Time No Known Allergies Allergy Verified 09/13/21 09:40 <Silverio Torres DO - Last Filed: 01/15/22 12:26> Review of Systems 2 Constitutional: Constitutional: Reports no additional constitutional complaints, Denies chills, Denies fever(s) and Denies night sweats <MARLA Vitale Last Filed: 01/15/22 14:59> Eyes: Eyes: Reports no additional eye complaints, Denies blurry vision, Denies change in vision, Denies diplopia, Denies eye discharge, Denies loss of vision and Denies eye pain <Jonelle MARLA Martines Last Filed: 01/15/22 14:59> ENT: Denies dizziness <MARLA Vitale Last Filed: 01/15/22 14:59> Cardiovascular: Cardiovascular: Reports no additional cardiovascular complaints, Denies chest pain, Denies lightheadedness, Denies Loss of Consciousness and Denies dyspnea <MARLA Vitale Last Filed: 01/15/22 14:59> Respiratory: Respiratory: Reports no additional respiratory complaints and Denies dyspnea <MARLA Vitale Last Filed: 01/15/22 14:59> Gastrointestinal: Gastrointestinal: Reports no additional gastrointestinal complaints, Denies abdominal pain, Denies melena, Denies hematochezia, Denies change in bowel habits and Denies change in stool character <MARLA Vitale Last Filed: 01/15/22 14:59> Genitourinary: Genitourinary: Reports no additional male genitourinary complaints, Denies hematuria, Denies oliguria, Denies difficulty urinating, Reports erectile dysfunction, Denies dysuria, Reports testicular pain, Denies urinary frequency, Denies urinary hesitancy, Denies urinary incontinence and Denies urinary urgency <MARLA Vitale Last Filed: 01/15/22 14:59> Musculoskeletal: Musculoskeletal: Reports no additional musculoskeletal complaints, Denies numbness and Denies tingling <MARLA Vitale Last Filed: 01/15/22 14:59> Neurologic: Denies dizziness, Denies loss of vision, Denies numbness and De nies tingling <MARLA Vitale Last Filed: 01/15/22 14:59> Psychiatric: Psychiatric: Reports no additional psychiatric complaints <MARLA Vitale Last Filed: 01/15/22 14:59> Endocrine: Endocrine: Reports no additional endocrine complaints <MARLA Vitale Last Filed: 01/15/22 14:59> Hematologic/Lymphatic: Hematologic/Lymphatic: Reports no additional hematologic/lymphatic complaints <MARLA Vitale Last Filed: 01/15/22 14:59> Allergic/Immunologic: Allergic/Immunologic: Reports no additional allergic/immunologic complaints <MARLA Vitale Last Filed: 01/15/22 14:59> PMFSH Past Medical History Attestation statement: The following information was validated with the patient. <MARLA Vitale - Last Filed: 01/15/22 14:59> Source: old records reviewed <MARLA Vitale - Last Filed: 01/15/22 14:59> Medical History: Medical History HTN (hypertension) PVC (premature ventricular contraction) <Silverio Torres DO - Last Filed: 01/15/22 12:26> Surgical History: Surgical History History of lumbar surgery <Silverio Torres DO - Last Filed: 01/15/22 12:26> Social History Social History: Social History Housing: Apartment Patient Tobacco Use Status: Never used Tobacco e-Cigarette/Vaping Use: Never Used Advance Directives: No Advance Directives Information Provided: Yes service: No Current occupational status: employed Cognitive needs: No Hearing needs: No Vision needs: Yes <Silverio Torres DO - Last Filed: 01/15/22 12:26> Physical Exam Vital Signs: Vital Signs: Last Vital Signs Temp 98.3 F 01/15/22 12:19 Pulse 74 01/15/22 12:19 Resp 18 01/15/22 12:19 BP 112/90 H 01/15/22 12:19 Pulse Ox 97 01/15/22 12:19 O2 Del Method 01/15/22 12:19 BMI result Body Mass Index 35.4 <Silverio Torres DO - Last Filed: 01/15/22 12:26> Vital Signs: Last Vital Signs Temp 98.3 F 01/15/22 12:19 Pulse 74 01/15/22 12:19 Resp 18 01/15/22 12:19 BP 112/90 H 01/15/22 12:19 Pulse Ox 97 01/15/22 12:19 O2 Del Method 01/15/22 12:19 BMI result Body Mass Index 35.4 <MARLA Vitale - Last Filed: 01/15/22 14:59> Const: General: cooperative, no acute distress, alert and awake <MARLA Vitale - Last Filed: 01/15/22 14:59> Nutritional Appearance: well nourished <Jonellejanae Townsendmart MD - Last Filed: 01/15/22 14:59> Orientation/consciousness: patient oriented x3 <Jonelle Townsendmart MD - Last Filed: 01/15/22 14:59> Limitations: no limitations <Jonellejanae Townsendmart MD - Last Filed: 01/15/22 14:59> HEENT: Head: Yes normal to inspection and Yes atraumatic <Jonelle Townsendmart MD - Last Filed: 01/15/22 14:59> Ears: hearing grossly normal bilaterally and external ears normal <Jonelle Townsendmart MD - Last Filed: 01/15/22 14:59> General nose exam: Normal external nose present, no nasal discharge noted and no epistaxis <Jonelle Townsendmart MD - Last Filed: 01/15/22 14:59> Face and sinus: Yes normal facial exam, No abrasion and No laceration <Jonellejanae Townsendmart MD - Last Filed: 01/15/22 14:59> Mouth: Normal oral and palatal mucosa present, no drooling and no muffled voice <Jonelle Townsendmart MD - Last Filed: 01/15/22 14:59> Eyes: General: appearance normal, both eyes and all related structures <Jonelle Townsendmart MD - Last Filed: 01/15/22 14:59> Periorbital: periorbital findings normal <Jonelle TownsendMARLA cevallos - Last Filed: 01/15/22 14:59> Eyelids: Yes eyelids normal <Jonellejanae Townsendmart MD - Last Filed: 01/15/22 14:59> Conjunctivae: conjunctivae normal <Jonelle Townsendmart MD - Last Filed: 01/15/22 14:59> Pupils: Equal, round and reactive pupils present <MARLA Vitale Mo st Filed: 01/15/22 14:59> EOM: EOMs intact bilaterally <Jonelle TownsendMARLA cevallos - Last Filed: 01/15/22 14:59> Neck: Neck: Yes normal visual inspection, Yes full ROM and Yes no lymphadeno anshul <MARLA Vitale - Last Filed: 01/15/22 14:59> Chest: Chest palpation & inspection: normal inspection of the chest <Jonelle Martines PA - Last Filed: 01/15/22 14:59> Resp: Effort & Inspection: normal respiratory effort and able to speak in complete sentences <Jonelle Martines PA - Last Filed: 01/15/22 14:59> Auscultation: clear to auscultation bilaterally <Jonelle Martines PA - Last Filed: 01/15/22 14:59> Cardio: Rate: regular rate <Jonelle Martines PA - Last Filed: 01/15/22 14:59> Rhythm: regular rhythm <Jonelle Martines PA - Last Filed: 01/15/22 14:59> GI: Inspection: Yes normal to inspection <Jonelle Martines MARLA - Last Filed: 01/15/22 14:59> Palpation (GI): Soft to palpation, not firm, nontender and no guarding <Jonelle Martines PA - Last Filed: 01/15/22 14:59> : Male General Exam: Yes normal external exam <Jonelle Martines PA - Last Filed: 01/15/22 14:59> Penis: normal penis <Jonelle Martines PA - Last Filed: 01/15/22 14:59> Scrotum: scrotum normal <Jonelle Martines PA - Last Filed: 01/15/22 14:59> Testes: Testes normal <Jonelle Martines PA - Last Filed: 01/15/22 14:59> Neuro: General: patient oriented x3 and moves all extremities <Jonelle Martines MD - Last Filed: 01/15/22 14:59> Cranial nerves: Yes Equal, round and reactive pupils present <Jonelle Martines PA - Last Filed: 01/15/22 14:59> Cognition (Neuro): normal cognition <Jonelle Martines MARLA - Last Filed: 01/15/22 14:59> Motor exam (neuro): 5/5 motor strength present throughout <Jonelle Martines PA - Last Filed: 01/15/22 14:59> Sensory Exam: Normal double simultaneous stimulation for sensation <Jonelle Martines MARLA - Last Filed: 01/15/22 14:59> Coordination: [id number] test normal <Jonelle Martines PA - Last Filed: 01/15/22 14:59> Extrem: General: Yes normal to inspection, Yes full ROM and Yes capillary refill normal <Jonelle MartinesMARLA - Last Filed: 01/15/22 14:59> Psych: Appearance: grossly normal <Jonelle MartinesMARLA - Last Filed: 01/15/22 14:59> Mental Status: mental status grossly normal <Jonellejanae TownsendMARLA cevallos - Last Filed: 01/15/22 14:59> Affect: normal affect <Jonelle MartinesMARLA - Last Filed: 01/15/22 14:59> Attitude: cooperative <Jonelle TownsendMARLA cevallos - Last Filed: 01/15/22 14:59> Thought process: Normal thought process present <Jonelle TownsendMARLA cevallos - Last Filed: 01/15/22 14:59> Thought content: Normal thought content present <Jonelle TownsendMARLA cevallos - Last Filed: 01/15/22 14:59> Insight: Good insight present (Psych) <Jonelle TownsendMARLA cevallos - Last Filed: 01/15/22 14:59> Course Course Course Narrative: 66 year old male presents to the ED with testicular pain for the past two days. Patient has had no falls injuries and states he is not sexually active. He states he has pain and burning when he urinates. He states he has never had this in the past. He denies cough fever chest pain nausea vomiting or diarrhea. Patient seen in triage unable to visualize his testicles pain to abdominal area was not reproducible. I will order labs GC chalmydia and urine. I will get a US of his testicles. <Silverio Torres DO - Last Filed: 01/15/22 12:26> MDM - Male Genitourinary MDM Narrative Medical decision making narrative: Patient is a 66 year old assigned male at with a history of GERD and HTN presenting to the emergency department today with bilateral testicular pain and erectile dysfunction. Patient's physical exam was unremarkable. Patient's blood work showed a slightly elevated WBC count of 14.7. Patient's urine showed no acute process. Patient's testicular US showed a small varicocele but was otherwise unremarkable. Patient's clinical presentation is most consistent with epididemitis. I explained my physical exam findings as well as all test results to the patient. I answered all questions asked by the patient. I stressed the importance of the patient taking his medication as prescribed. I stressed the importance of the patient following up with his primary care provider and a urologist. I stressed the importance of the patient returning to the emergency department immediately if his symptoms were to worsen or if he were to develop any dizziness, shortness of breath, difficulty breathing, chest pain, blurry vision, loss of vision, nausea, vomiting, abdominal pain, fever, chills, back pain, or any other complaints. Patient verbalized agreement and understanding with this treatment plan and discharge. <MARLA Vitale - Last Filed: 01/15/22 14:59> Medical Records Attestation: I reviewed the patient's medical records. <MARLA Vitale - Last Filed: 01/15/22 14:59> Lab Data Attestation: I reviewed the patient's lab results. <MARLA Vitale - Last Filed: 01/15/22 14:59> Result diagrams: : 01/15/22 13:41 01/15/22 13:41 <Silverio Torres DO - Last Filed: 01/15/22 12:26> Labs: Lab Results 01/15/22 01/15/22 01/15/22 Range/Units 13:41 13:41 14:21 WBC 14.7 H (4.8-10.8) X10*3/uL RBC 5.71 (4.60-5.80) X10*6/uL Hgb 17.1 (14.0-18.0) g/dl Hct 51.5 (42.0-52.0) % MCV 90.2 (80.0-98.0) fL MCH 29.9 (27.0-33.0) pg MCHC 33.2 (31.0-36.0) g/dl RDW 12.5 (11.0-16.0) % Plt Count 196 (160-400) X10*3/uL MPV 10.3 (9.4-12.4) fL Immature Gran % (Auto) 0.4 (0.0-0.4) % Neut % (Auto) 61.7 (45-73) % Lymph % (Auto) 24.8 (20-40) % [place] % (Auto) 12.2 H (2-11) % Eos % (Auto) 0.6 (0-4) % Baso % (Auto) 0.3 (0-2) % Lymph # (Auto) 3.7 (1.2-4.9) X10*3/uL [place] # (Auto) 1.8 H (0.1-1.2) X10*3/uL Eos # (Auto) 0.1 (0.0-0.4) X10*3/uL Baso # (Auto) 0.0 (0.0-0.2) X10*3/uL Abs Immat Gran (auto) 0.06 H (0.00-0.03) X10*3/uL Absolute Neuts (auto) 9.1 H (2.0-8.3) x10*3/uL Absolute Nucleated RBC 0.000 (0.0-0.012) X10*3/uL Nucleated RBC % (auto) 0.0 (0.0-0.2) /100WBC Smear Tech's Comments VERIFIED Sodium 140 (135-145) mmol/L Potassium 4.1 (3.3-5.1) mmol/L Chloride 101 (96-108) mmol/L Carbon Dioxide 28 (22-29) mmol/L Anion Gap 15 (12-20) BUN 14 (9-16) mg/dL Creatinine 0.72 (0.5-1.4) mg/dL Estim Creat Clear Calc 124.3 Estimated GFR > 60 Random Glucose 97 D (60-115) mg/dL Calcium 9.2 (8.4-10.2) mg/dL Total Bilirubin 0.6 (0.0-1.0) mg/dL Direct Bilirubin 0.3 (0.0-0.5) mg/dL AST 28 (5-37) U/L ALT 31 (0-40) U/L Alkaline Phosphatase 106 (39-117) U/L Total Protein 7.4 (6.5-8.0) g/dL Albumin 3.9 (3.5-5.0) g/dL Lipase 17 (8-78) U/L Urine Color Dark Yellow Urine Appearance Clear Urine pH 5.5 (5.0-9.0) Ur Specific [place] >= 1.030 H (1.005-1.025) Urine Protein 30 (1+) H (Neg-Trace) mg/dL Urine Glucose (UA) Negative (Negative) mg/dL Urine Ketones Trace (Negative) mg/dL Urine Blood Trace H (Negative) Urine Nitrite Negative (Negative) Ur Leukocyte Esterase Negative (Negative) Urine RBC 6-10 H (0-2) /HPF Urine WBC 0-5 (0-5) /HPF Ur Squamous Epith Cells 0-2 (0-2) /HPF Urine Bacteria None Seen (None Seen) Hyaline Casts 3-5 (0-2) /LPF <Silverio Torres, DO - Last Filed: 01/15/22 12:26> Lab Results 01/15/22 01/15/22 01/15/22 Range/Units 13:41 13:41 14:21 WBC 14.7 H (4.8-10.8) X10*3/uL RBC 5.71 (4.60-5.80) X10*6/uL Hgb 17.1 (14.0-18.0) g/dl Hct 51.5 (42.0-52.0) % MCV 90.2 (80.0-98.0) fL MCH 29.9 (27.0-33.0) pg MCHC 33.2 (31.0-36.0) g/dl RDW 12.5 (11.0-16.0) % Plt Count 196 (160-400) X10*3/uL MPV 10.3 (9.4-12.4) fL Immature Gran % (Auto) 0.4 (0.0-0.4) % Neut % (Auto) 61.7 (45-73) % Lymph % (Auto) 24.8 (20-40) % [place] % (Auto) 12.2 H (2-11) % Eos % (Auto) 0.6 (0-4) % Baso % (Auto) 0.3 (0-2) % Lymph # (Auto) 3.7 (1.2-4.9) X10*3/uL [place] # (Auto) 1.8 H (0.1-1.2) X10*3/uL Eos # (Auto) 0.1 (0.0-0.4) X10*3/uL Baso # (Auto) 0.0 (0.0-0.2) X10*3/uL Abs Immat Gran (auto) 0.06 H (0.00-0.03) X10*3/uL Absolute Neuts (auto) 9.1 H (2.0-8.3) x10*3/uL Absolute Nucleated RBC 0.000 (0.0-0.012) X10*3/uL Nucleated RBC % (auto) 0.0 (0.0-0.2) /100WBC Smear Tech's Comments VERIFIED Sodium 140 (135-145) mmol/L Potassium 4.1 (3.3-5.1) mmol/L Chloride 101 (96-108) mmol/L Carbon Dioxide 28 (22-29) mmol/L Anion Gap 15 (12-20) BUN 14 (9-16) mg/dL Creatinine 0.72 (0.5-1.4) mg/dL Estim Creat Clear Calc 124.3 Estimated GFR > 60 Random Glucose 97 D (60-115) mg/dL Calcium 9.2 (8.4-10.2) mg/dL Total Bilirubin 0.6 (0.0-1.0) mg/dL Direct Bilirubin 0.3 (0.0-0.5) mg/dL AST 28 (5-37) U/L ALT 31 (0-40) U/L Alkaline Phosphatase 106 (39-117) U/L Total Protein 7.4 (6.5-8.0) g/dL Albumin 3.9 (3.5-5.0) g/dL Lipase 17 (8-78) U/L Urine Color Dark Yellow Urine Appearance Clear Urine pH 5.5 (5.0-9.0) Ur Specific [place] >= 1.030 H (1.005-1.025) Urine Protein 30 (1+) H (Neg-Trace) mg/dL Urine Glucose (UA) Negative (Negative) mg/dL Urine Ketones Trace (Negative) mg/dL Urine Blood Trace H (Negative) Urine Nitrite Negative (Negative) Ur Leukocyte Esterase Negative (Negative) Urine RBC 6-10 H (0-2) /HPF Urine WBC 0-5 (0-5) /HPF Ur Squamous Epith Cells 0-2 (0-2) /HPF Urine Bacteria None Seen (None Seen) Hyaline Casts 3-5 (0-2) /LPF <MARLA Vitale - Last Filed: 01/15/22 14:59> Imaging Data Scortal US: Attestation: I personally reviewed and interpreted this imaging study as follows: <MARLA Vitale - Last Filed: 01/15/22 14:59> My impression: No acute process. <MARLA Vitale - Last Filed: 01/15/22 14:59> Radiologist's impression: EXAMINATION: US SCROTUM CLINICAL INFORMATION: Bilateral testicular pain. COMPARISON: None TECHNIQUE: A sonogram of the scrotum was performed assessing ramos-scale appearance and color Doppler flow. Spectral Doppler analysis of the arterial and venous flow were performed in the testes bilaterally. FINDINGS: RIGHT: Right testicle measures 5.19 x 2.39 x 2.57 cm, volume 16.7 mL. No focal testicular parenchymal lesions are visualized. Spectral Doppler analysis of the arterial and venous flow is normal in the right testis. Right epididymal head is normal in size. No right hydrocele or varicocele is seen. Right epididymal Doppler flow is normal. LEFT: Left testicle measures 5.03 x 2.31 x 3.35 cm, volume 20.4 mL. No focal testicular parenchymal lesions are visualized. Spectral Doppler analysis of the arterial and venous flow is normal in the left testis. Left epididymal head is normal in size. No left hydrocele seen. There is left small varicocele noted. Left epididymal Doppler flow is normal. US/US scrotum doppler IMPRESSION: Small left varicocele. ? Otherwise normal ultrasound of the testes with normal Doppler flow. Dictated By: Mo Hoyt MD Signed By: Electronically signed by Mo Hoyt MD 01/15/22 1349 <MARLA Vitale - Last Filed: 01/15/22 14:59> Discharge Plan Discharge Clinical Impression: Erectile dysfunction, Pain in both testicles <Silverio Torres DO - Last Filed: 01/15/22 12:26> Patient Disposition: Home, Self-Care <Silverio Torres DO - Last Filed: 01/15/22 12:26> Instructions: Testicle Pain (ED) <Silverio Torres DO - Last Filed: 01/15/22 12:26> Additional Instructions: Follow up with your primary care provider and a urologist. Return to the emergency department immediately if your symptoms worsen or if you develop any dizziness, shortness of breath, difficulty breathing, chest pain, blurry vision, loss of vision, nausea, vomiting, abdominal pain, fever, chills, back pain, or any other complaints. Vamsi un seguimiento con beyer proveedor de atenci?n primaria y un ur?logo. Regrese a la rupinder de emergencias de inmediato si bryan s?ntomas empeoran o si presenta mareos, dificultad para respirar, dolor de pecho, visi?n borrosa, p?rdida de la visi?n, n?useas, v?mitos, dolor abdominal, fiebre, escalofr?os, dolor de espalda o cualquier otras quejas. <Silverio Torres DO - Last Filed: 01/15/22 12:26> Prescriptions: New doxycycline hyclate 100 mg tablet 100 mg PO BID 7 Days Qty: 14 0RF No Action carvedilol 3.125 mg tablet 3.125 mg PO BID Qty: 60 5RF amlodipine 5 mg tablet 5 mg PO DAILY 90 Days Qty: 90 1RF sildenafil 100 mg tablet 100 mg PO DAILY 5 Days Qty: 5 0RF naproxen 500 mg tablet 500 mg PO BID 30 Days Qty: 60 2RF pantoprazole [Protonix] 40 mg tablet,delayed release (DR/EC) 40 mg PO DAILY 90 Days Qty: 90 1RF tamsulosin [Flomax] 0.4 mg capsule 0.4 mg PO DAILY Qty: 90 1RF lisinopril 20 mg tablet 20 mg PO DAILY 90 Days Qty: 90 1RF <Silverio Torres DO - Last Filed: 01/15/22 12:26> Referrals: Rosales Cervantes PA-C [Primary Care Provider] - [facility] [Provider Group] (Call to establish and follow up with a urologist to discuss your penile concerns. Llame para establecer y hacer un seguimiento con un ur?logo para analizar bryan inquietudes sobre el pene.) <Silverio Torres DO - Last Filed: 01/15/22 12:26> Print Language: Portuguese <Silverio Torres, DO - Last Filed: 01/15/22 12:26>
[2022-01-15 13:47] LABS: Basophils Percent Auto 0.3 % (0-2); Eosinophils Absolute Auto 0.1 X10*3/uL (0.0-0.4); Eosinophils Percent Auto 0.6 % (0-4); Hematocrit 51.5 % (42.0-52.0); Hemoglobin 17.1 g/dl (14.0-18.0); Imm Gran Abs Auto 0.06 X10*3/uL (0.00-0.03); Imm Gran Pct Auto 0.4 % (0.0-0.4); Lymphocytes Absolute Auto 3.7 X10*3/uL (1.2-4.9); Lymphocytes Percent Auto 24.8 % (20-40); MANUAL DIFF FLAG SCAN; Mean Corpuscular HGB Conc 33.2 g/dl (31.0-36.0); Mean Corpuscular Hemoglobin 29.9 pg (27.0-33.0); Mean Corpuscular Volume 90.2 fL (80.0-98.0); Mean Platelet Volume 10.3 fL (9.4-12.4); Monocytes Absolute Auto 1.8 X10*3/uL (0.1-1.2); Monocytes Percent Auto 12.2 % (2-11); Neutrophils Absolute Auto 9.1 x10*3/uL (2.0-8.3); Neutrophils Percent Auto 61.7 % (45-73); Platelet Count 196 X10*3/uL (160-400); Red Blood Count 5.71 X10*6/uL (4.60-5.80); Red Cell Distribution Width 12.5 % (11.0-16.0); SCAN SMEAR FLAG 1; White Blood Count 14.7 X10*3/uL (4.8-10.8)
[2022-01-15 14:10] LABS: Alanine Aminotransferase 31 U/L (0-40); Albumin Level 3.9 g/dL (3.5-5.0); Alkaline Phosphatase 106 U/L (39-117); Anion Gap 15 (12-20); Aspartate Amino Transferase 28 U/L (5-37); Bilirubin Direct 0.3 mg/dL (0.0-0.5); Bilirubin Total 0.6 mg/dL (0.0-1.0); Blood Urea Nitrogen 14 mg/dL (9-16); Calcium 9.2 mg/dL (8.4-10.2); Carbon Dioxide 28 mmol/L (22-29); Chloride 101 mmol/L (96-108); Creatinine Clr Calc Pharmacy 124.3; Estimated Glomerular Filt Rate > 60; Glucose Random 97 mg/dL (60-115); Lipase 17 U/L (8-78); Potassium 4.1 mmol/L (3.3-5.1); Sodium 140 mmol/L (135-145); Total Protein 7.4 g/dL (6.5-8.0)
[2022-01-15 14:13] LABS: SLIDE REVIEW VERIFIED
[2022-01-15 14:35] LABS: Appearance Urine Clear; Color Urine Dark Yellow; Glucose Urine UA Negative (Negative); Leukocyte Esterase Urine Negative (Negative); Nitrite Urine Negative (Negative); PH 5.5 (5.0-9.0); Specific Gravity - Urine >= 1.030 (1.005-1.025); UMIC TRIGGER UACC YES; Urine Blood Trace (Negative); Urine Ketones Trace mg/dL (Negative); Urine Protein 30 (1+) mg/dL (Neg-Trace)
[2022-01-15 14:40] LABS: Bacteria Urine None Seen (None Seen); Squamous Epithelial Cell Urine 0-2 /HPF (0-2); WBC Urine 0-5 /HPF (0-5)
[2022-01-15] MEDS: HYDROcodone Bit/Acetam 5/325 TABLET 1 TAB PO (15:03)
[2022-01-15 16:55] LABS: CT PCR NOT DETECTED (Not Detect.); NG PCR NOT DETECTED (Not Detect.)
== END 2022-01-15 15:04 | disposition home or self-care (01) ==
PROVIDERS: Physician Assistant Medical; Emergency Provider Student in an Organized Health Care Education/Training Program; PCP Physician Assistant
DX: N52.9 Male erectile dysfunction, unspecified (principal); N50.812 Left testicular pain; N50.811 Right testicular pain; I10 Essential (primary) hypertension
CPT/HCPCS: 36415; 76870; 80048; 80076; 81001; 83690; 85025; 87491; 87591; 93975; 99283; 99284

== ENCOUNTER → 2022-03-22 11:19 | Outpatient (BNVA) | payer MEDICARE, MEDICAID, SELFPAY | PROVIDERS: PCP Physician Assistant; Visit Provider Urology | DX: N40.1 Benign prostatic hyperplasia with lower urinary tract symptoms (principal); R35.1 Nocturia; N52.8 Other male erectile dysfunction | CPT/HCPCS: 51798; 99202 ==

== ENCOUNTER 2022-03-27 10:43 | Emergency (ER) | payer MEDICARE, MEDICAID, SELFPAY ==
[2022-03-27 11:55] VITALS: BP 136/100; PULSE 98; RESP 20; TEMP 36.1; O2SAT 94; BMI 39.4
--- NOTE | 2022-03-27 12:03 | ED_ITS ---
HPI - General Adult General Chief complaint: General Medical <MARLA Odell - Last Filed: 04/02/22 11:23> Stated complaint: Sore throat <MARLA Odell - Last Filed: 04/02/22 11:23> Time Seen by Provider: 03/27/22 12:03 <MARLA Odell - Last Filed: 04/02/22 11:23> Source: patient <Amber Mouna Hernandez CNP - Last Filed: 03/27/22 17:59> Mode of arrival: ambulatory <Amber Hernandez CNP - Last Filed: 03/27/22 17:59> Limitations: no limitations <Amber Hernandez CNP - Last Filed: 03/27/22 17:59> History of Present Illness HPI narrative: Patient is a 66-year-old male presents emergency department today with complaints of sore throat. He states that last night he awoke in his mouth felt dry, he felt like he was having a hard time swallowing. Upon awakening this morning he felt that the symptoms were worse so he came to the emergency department. He denies associated fevers, chills, recent upper respiratory symptoms. Upon review of medications he does state that he is taking lisinopril which he has been on for at least 6 months. He does report that he took terazosin last night for the 1st time ever. He denies any associated rash, itchiness, shortness of breath, difficulty breathing. <Amber Hernandez CNP - Last Filed: 03/27/22 17:59> Related Data Home medications: Previous Rx's Medication Instructions Recorded amlodipine 5 mg tablet 5 mg PO DAILY 90 days #90 tabs 08/02/21 naproxen 500 mg tablet 500 mg PO BID 30 days #60 tabs 08/02/21 carvedilol 3.125 mg tablet 3.125 mg PO BID #60 tabs 12/05/21 sildenafil 100 mg tablet 100 mg PO DAILY 5 days #5 tabs 02/23/22 tamsulosin 0.4 mg capsule (Flomax) 0.4 mg PO BEDTIME #90 caps 02/23/22 sildenafil 100 mg tablet 100 mg PO ONCE PRN sexual activity 03/22/22 30 days #30 tabs terazosin 5 mg capsule 5 mg PO BEDTIME 30 days #30 caps 03/22/22 lisinopril 20 mg tablet 20 mg PO DAILY 90 days #90 tabs 03/26/22 epinephrine 0.3 mg/0.3 mL 0.3 mg (0.3 mL) IM Q4H PRN 03/27/22 injection, auto-injector (EpiPen) anaphylaxis #2 ea amlodipine 10 mg tablet 10 mg PO DAILY #10 tabs 03/28/22 pantoprazole 40 mg tablet,delayed 40 mg PO DAILY 90 days #90 tabs 03/28/22 release (Protonix) <MARLA Odell - Last Filed: 04/02/22 11:23> Allergies/adverse reactions: Allergies Allergy/AdvReac Type Severity Reaction Status Date / Time No Known Allergies Allergy Verified 03/22/22 11:24 <MARLA Odell - Last Filed: 04/02/22 11:23> [facility] Past Medical History Medical History: Medical History HTN (hypertension) PVC (premature ventricular contraction) <MARLA Odell - Last Filed: 04/02/22 11:23> Surgical History: Surgical History History of lumbar surgery <MARLA Odell - Last Filed: 04/02/22 11:23> Social History Social History: Social History Housing: Apartment Alcohol intake: unknown Patient Tobacco Use Status: Never used Tobacco Smoked in Last 30 Days: No e-Cigarette/Vaping Use: Never Used Use of substances other than those prescribed or required for medical reasons: Unknown Advance Directives: No Advance Directives Information Provided: Yes service: No Current occupational status: employed Cognitive needs: No Hearing needs: No Vision needs: Yes <MARLA Odell - Last Filed: 04/02/22 11:23> Physical Exam ED Vital Signs: Vital Signs - 24 hr 03/27/22 11:55 03/27/22 16:22 Temperature 96.9 F Pulse Rate 98 78 Respiratory Rate 20 78 H Blood Pressure 136/100 H 168/112 H Pulse Oximetry 94 96 Oxygen Delivery Method Room Air Room Air BMI result Body Mass Index 39.4 <MARLA Odell - Last Filed: 04/02/22 11:23> Vital Signs - 24 hr 03/27/22 11:55 03/27/22 16:22 Temperature 96.9 F Pulse Rate 98 78 Respiratory Rate 20 78 H Blood Pressure 136/100 H 168/112 H Pulse Oximetry 94 96 Oxygen Delivery Method Room Air Room Air BMI result Body Mass Index 39.4 <Amber Hernandez CNP - Last Filed: 03/27/22 17:59> Course Course Course Narrative: RME: 66 yold male presents to the ED for sore throat. ON exam patient lower lip seems slightly swollen which he states started since last night. patient states sore throat starting since last night and worsens. Oral exam shows significantly swollen uvula. Tonsils did not seem swollen. NO signs of peritonsillar abscess. patient on lisinopril for the past 30 days. patient brought in immediatley to the ED for work up as allergic reaction to lisinopril. Benadryl, solumedrol, and pepcid. patient was informed if he deteriortates he will need epinephrine. patient is talking and states no shortness of breath. Case discussed with CHERYL HUTCHISON in the ED. labs ordered. Strep and SARS ordered. labs ordered <MARLA Odell - Last Filed: 04/02/22 11:23> Reevaluation(s) Reevaluation #1: at this time, uvular swelling appears have mildly increased, however he is still maintaining airway, managing secretions, does not have significant swelling to the lips, no stridor, LSCTA, no rash or urticaria present. Testing for COVID-19, influenza, RSV, and strep were all negative. CBC and CMP are overall unremarkable. <Amber Hernandez CNP - Last Filed: 03/27/22 17:59> Time: 13:25 <Amber Hernandez CNP - Last Filed: 03/27/22 17:59> Reevaluation #2: At this time uvulitis persists, remains unchanged. Maintaining airway. Patient requesting food and drink at this time. exact etiology at this time is unknown, suspect component of angioedema, will discontinue lisinopril, and patient to hold Terazosin in the event that this is allergic type reaction to that medication. Patient is without any recent trauma, injury, or therapy that would cause uvulitis, no evidence of foreign body, no drooling or trismus to suggest peritonsillar/retropharyngeal abscess, and no associated upper respiratory symptoms to suggest bacterial or viral etiology. Discussed with patient plan of care, Patient is to begin taking amlodipine 10 mg daily. advised to contact his PCP office today, to arrange for follow-up within 1 week, prescription for EpiPen sent to pharmacy, instructed on use, presenting to emergency department immediately after administration, reviewed worrisome signs and symptoms that would warrant re-evaluation in the emergency department. All questions answered. Patient stable for discharge. <Amber Hernandez CNP - Last Filed: 03/27/22 17:59> Time: 15:07 <Amber Hernandez CNP - Last Filed: 03/27/22 17:59> Reevaluation #3: Advised by nursing staff that upon discharge, patient hypertensive with BP 160/112. I spoke with patient, he states that his blood pressure is Has been elevated recently unaware of the exact numbers, which is why he had his lisinopril dosage increased recently. At this time he denies headache, dizziness, lightheadedness, vision changes, neck pain, chest pain, shortness of breath, difficulty breathing. Patient to receive amlodipine 10 mg orally. He is asymptomatic. 160/98 upon manual evaluation. Prior diastolic blood pressures in the 90s upon review of PCP notes. Additionally, may also be elevated secondary to IV steroids administered today. <Amber Hernandez CNP - Last Filed: 03/27/22 17:59> Time: 16:30 <Amber Hernandez CNP - Last Filed: 03/27/22 17:59> Additional Reevaluation(s): 0186: Patient has declined to leave the emergency department until his blood pressure has improved. I had an at length discussion with patient that there is no indication that he needs to remain in emergency department at this time. ED attending Dr. Crouch to bedside also evaluate patient. Agree with plan of care, at this time patient is stable for discharge. <Amber Hernandez CNP - Last Filed: 03/27/22 17:59> Medications Administered Discontinued Medications Generic Name Dose Route Start Last Admin Trade Name Freq PRN Reason Stop Dose Admin Amlodipine Besylate 10 mg 03/27/22 16:31 03/27/22 16:54 Amlodipine Besylate 10 Mg Tablet PO 03/27/22 16:32 10 mg ONCE ONE Administration Protocol Diphenhydramine HCl 50 mg 03/27/22 11:57 03/27/22 12:26 Diphenhydramine Hcl 50 Mg/Ml Vial IVPUSH 03/27/22 11:58 50 mg ONCE ONE Administration Famotidine 20 mg 03/27/22 11:57 03/27/22 12:26 Famotidine/Pf 20 Mg/2 Ml Vial IVPUSH 03/27/22 11:58 20 mg ONCE ONE Administration Methylprednisolone Sodium Succinate 125 mg 03/27/22 11:57 03/27/22 12:26 Methylprednisolone Sod Succ 125 Mg/2 Ml Vial IVPUSH 03/27/22 11:58 125 mg ONCE ONE Administration <MARLA Odell - Last Filed: 04/02/22 11:23> Medications Administered Discontinued Medications Generic Name Dose Route Start Last Admin Trade Name Freq PRN Reason Stop Dose Admin Amlodipine Besylate 10 mg 03/27/22 16:31 03/27/22 16:54 Amlodipine Besylate 10 Mg Tablet PO 03/27/22 16:32 10 mg ONCE ONE Administration Protocol Diphenhydramine HCl 50 mg 03/27/22 11:57 03/27/22 12:26 Diphenhydramine Hcl 50 Mg/Ml Vial IVPUSH 03/27/22 11:58 50 mg ONCE ONE Administration Famotidine 20 mg 03/27/22 11:57 03/27/22 12:26 Famotidine/Pf 20 Mg/2 Ml Vial IVPUSH 03/27/22 11:58 20 mg ONCE ONE Administration Methylprednisolone Sodium Succinate 125 mg 03/27/22 11:57 03/27/22 12:26 Methylprednisolone Sod Succ 125 Mg/2 Ml Vial IVPUSH 03/27/22 11:58 125 mg ONCE ONE Administration <Amber Hernandez CNP - Last Filed: 03/27/22 17:59> Medical Decision Making Medical Decision Making MDM Narrative: Reviewed RME, at the time of examination patient does have perhaps mild swelling to the lips, it is unclear from patient whether this is baseline size for him, uvular edema, without tonsillar hypertrophy, exudates, does not appear consistent with peritonsillar /retropharyngeal abscess. Concern at this time for possible angioedema associated with lisinopril usage, versus potential allergic reaction to terazosin, as symptoms began soon after taking the first dose. Currently in no respiratory distress, would hold off on epinephrine at this time. Will trial Benadryl, Solu-Medrol, and Pepcid as ordered from [facility] and continue to monitor. <Amber Hernandez CNP - Last Filed: 03/27/22 17:59> Differential Diagnosis Differential Diagnoses: The differential diagnosis associated with the presentation includes <Amber Hernandez CNP - Last Filed: 03/27/22 17:59> Lab Data MDM Lab Attestation statement: I reviewed the patient's lab results. <Amber Hernandez CNP - Last Filed: 03/27/22 17:59> Result Diagrams: 03/27/22 12:15 03/27/22 12:15 <MARLA Odell - Last Filed: 04/02/22 11:23> Labs: Lab Results 03/27/22 03/27/22 03/27/22 Range/Units 12:15 12:15 12:15 WBC 7.9 (4.8-10.8) X10*3/uL RBC 4.88 (4.60-5.80) X10*6/uL Hgb 14.6 (14.0-18.0) g/dl Hct 44.2 (42.0-52.0) % MCV 90.6 (80.0-98.0) fL MCH 29.9 (27.0-33.0) pg MCHC 33.0 (31.0-36.0) g/dl RDW 12.5 (11.0-16.0) % Plt Count 158 L (160-400) X10*3/uL MPV 11.0 (9.4-12.4) fL Immature Gran % (Auto) 0.3 (0.0-0.4) % Neut % (Auto) 51.8 (45-73) % Lymph % (Auto) 38.1 (20-40) % [place] % (Auto) 8.1 (2-11) % Eos % (Auto) 1.4 (0-4) % Baso % (Auto) 0.3 (0-2) % Lymph # (Auto) 3.0 (1.2-4.9) X10*3/uL [place] # (Auto) 0.6 (0.1-1.2) X10*3/uL Eos # (Auto) 0.1 (0.0-0.4) X10*3/uL Baso # (Auto) 0.0 (0.0-0.2) X10*3/uL Abs Immat Gran (auto) 0.02 (0.00-0.03) X10*3/uL Absolute Neuts (auto) 4.1 (2.0-8.3) x10*3/uL Absolute Nucleated RBC 0.000 (0.0-0.012) X10*3/uL Nucleated RBC % (auto) 0.0 (0.0-0.2) /100WBC PT 12.4 (10.0-13.1) SEC INR 1.1 (0.9-1.1) APTT 27.2 (26.0-36.4) SEC Sodium 142 (135-145) mmol/L Potassium 3.7 (3.3-5.1) mmol/L Chloride 106 (96-108) mmol/L Carbon Dioxide 27 (22-29) mmol/L Anion Gap 13 (12-20) BUN 9 (9-16) mg/dL Creatinine 0.72 (0.5-1.4) mg/dL Estim Creat Clear Calc 111.7 Estimated GFR > 60 Random Glucose 110 (60-115) mg/dL Calcium 8.6 D (8.4-10.2) mg/dL Total Bilirubin 0.5 (0.0-1.0) mg/dL AST 23 (5-37) U/L ALT 24 (0-40) U/L Alkaline Phosphatase 93 (39-117) U/L Total Protein 6.4 L (6.5-8.0) g/dL Albumin 3.6 (3.5-5.0) g/dL Influenza Type A (PCR) (Negative) Influenza Type B (PCR) (Negative) RSV RNA Qual (PCR) (Negative) SARS-CoV-2 RNA (RT-PCR) (Negative) S. pyogenes GrpA CIPRIANO (Negative) 03/27/22 03/27/22 Range/Units 12:15 12:15 WBC (4.8-10.8) X10*3/uL RBC (4.60-5.80) X10*6/uL Hgb (14.0-18.0) g/dl Hct (42.0-52.0) % MCV (80.0-98.0) fL MCH (27.0-33.0) pg MCHC (31.0-36.0) g/dl RDW (11.0-16.0) % Plt Count (160-400) X10*3/uL MPV (9.4-12.4) fL Immature Gran % (Auto) (0.0-0.4) % Neut % (Auto) (45-73) % Lymph % (Auto) (20-40) % [place] % (Auto) (2-11) % Eos % (Auto) (0-4) % Baso % (Auto) (0-2) % Lymph # (Auto) (1.2-4.9) X10*3/uL [place] # (Auto) (0.1-1.2) X10*3/uL Eos # (Auto) (0.0-0.4) X10*3/uL Baso # (Auto) (0.0-0.2) X10*3/uL Abs Immat Gran (auto) (0.00-0.03) X10*3/uL Absolute Neuts (auto) (2.0-8.3) x10*3/uL Absolute Nucleated RBC (0.0-0.012) X10*3/uL Nucleated RBC % (auto) (0.0-0.2) /100WBC PT (10.0-13.1) SEC INR (0.9-1.1) APTT (26.0-36.4) SEC Sodium (135-145) mmol/L Potassium (3.3-5.1) mmol/L Chloride (96-108) mmol/L Carbon Dioxide (22-29) mmol/L Anion Gap (12-20) BUN (9-16) mg/dL Creatinine (0.5-1.4) mg/dL Estim Creat Clear Calc Estimated GFR Random Glucose (60-115) mg/dL Calcium (8.4-10.2) mg/dL Total Bilirubin (0.0-1.0) mg/dL AST (5-37) U/L ALT (0-40) U/L Alkaline Phosphatase (39-117) U/L Total Protein (6.5-8.0) g/dL Albumin (3.5-5.0) g/dL Influenza Type A (PCR) NEGATIVE (Negative) Influenza Type B (PCR) NEGATIVE (Negative) RSV RNA Qual (PCR) NEGATIVE (Negative) SARS-CoV-2 RNA (RT-PCR) NEGATIVE (Negative) S. pyogenes GrpA CIPRIANO Negative (Negative) <MARLA Odell - Last Filed: 04/02/22 11:23> Lab Results 03/27/22 03/27/22 03/27/22 Range/Units 12:15 12:15 12:15 WBC 7.9 (4.8-10.8) X10*3/uL RBC 4.88 (4.60-5.80) X10*6/uL Hgb 14.6 (14.0-18.0) g/dl Hct 44.2 (42.0-52.0) % MCV 90.6 (80.0-98.0) fL MCH 29.9 (27.0-33.0) pg MCHC 33.0 (31.0-36.0) g/dl RDW 12.5 (11.0-16.0) % Plt Count 158 L (160-400) X10*3/uL MPV 11.0 (9.4-12.4) fL Immature Gran % (Auto) 0.3 (0.0-0.4) % Neut % (Auto) 51.8 (45-73) % Lymph % (Auto) 38.1 (20-40) % [place] % (Auto) 8.1 (2-11) % Eos % (Auto) 1.4 (0-4) % Baso % (Auto) 0.3 (0-2) % Lymph # (Auto) 3.0 (1.2-4.9) X10*3/uL [place] # (Auto) 0.6 (0.1-1.2) X10*3/uL Eos # (Auto) 0.1 (0.0-0.4) X10*3/uL Baso # (Auto) 0.0 (0.0-0.2) X10*3/uL Abs Immat Gran (auto) 0.02 (0.00-0.03) X10*3/uL Absolute Neuts (auto) 4.1 (2.0-8.3) x10*3/uL Absolute Nucleated RBC 0.000 (0.0-0.012) X10*3/uL Nucleated RBC % (auto) 0.0 (0.0-0.2) /100WBC PT 12.4 (10.0-13.1) SEC INR 1.1 (0.9-1.1) APTT 27.2 (26.0-36.4) SEC Sodium 142 (135-145) mmol/L Potassium 3.7 (3.3-5.1) mmol/L Chloride 106 (96-108) mmol/L Carbon Dioxide 27 (22-29) mmol/L Anion Gap 13 (12-20) BUN 9 (9-16) mg/dL Creatinine 0.72 (0.5-1.4) mg/dL Estim Creat Clear Calc 111.7 Estimated GFR > 60 Random Glucose 110 (60-115) mg/dL Calcium 8.6 D (8.4-10.2) mg/dL Total Bilirubin 0.5 (0.0-1.0) mg/dL AST 23 (5-37) U/L ALT 24 (0-40) U/L Alkaline Phosphatase 93 (39-117) U/L Total Protein 6.4 L (6.5-8.0) g/dL Albumin 3.6 (3.5-5.0) g/dL Influenza Type A (PCR) (Negative) Influenza Type B (PCR) (Negative) RSV RNA Qual (PCR) (Negative) SARS-CoV-2 RNA (RT-PCR) (Negative) S. pyogenes GrpA CIPRIANO (Negative) 03/27/22 03/27/22 Range/Units 12:15 12:15 WBC (4.8-10.8) X10*3/uL RBC (4.60-5.80) X10*6/uL Hgb (14.0-18.0) g/dl Hct (42.0-52.0) % MCV (80.0-98.0) fL MCH (27.0-33.0) pg MCHC (31.0-36.0) g/dl RDW (11.0-16.0) % Plt Count (160-400) X10*3/uL MPV (9.4-12.4) fL Immature Gran % (Auto) (0.0-0.4) % Neut % (Auto) (45-73) % Lymph % (Auto) (20-40) % [place] % (Auto) (2-11) % Eos % (Auto) (0-4) % Baso % (Auto) (0-2) % Lymph # (Auto) (1.2-4.9) X10*3/uL [place] # (Auto) (0.1-1.2) X10*3/uL Eos # (Auto) (0.0-0.4) X10*3/uL Baso # (Auto) (0.0-0.2) X10*3/uL Abs Immat Gran (auto) (0.00-0.03) X10*3/uL Absolute Neuts (auto) (2.0-8.3) x10*3/uL Absolute Nucleated RBC (0.0-0.012) X10*3/uL Nucleated RBC % (auto) (0.0-0.2) /100WBC PT (10.0-13.1) SEC INR (0.9-1.1) APTT (26.0-36.4) SEC Sodium (135-145) mmol/L Potassium (3.3-5.1) mmol/L Chloride (96-108) mmol/L Carbon Dioxide (22-29) mmol/L Anion Gap (12-20) BUN (9-16) mg/dL Creatinine (0.5-1.4) mg/dL Estim Creat Clear Calc Estimated GFR Random Glucose (60-115) mg/dL Calcium (8.4-10.2) mg/dL Total Bilirubin (0.0-1.0) mg/dL AST (5-37) U/L ALT (0-40) U/L Alkaline Phosphatase (39-117) U/L Total Protein (6.5-8.0) g/dL Albumin (3.5-5.0) g/dL Influenza Type A (PCR) NEGATIVE (Negative) Influenza Type B (PCR) NEGATIVE (Negative) RSV RNA Qual (PCR) NEGATIVE (Negative) SARS-CoV-2 RNA (RT-PCR) NEGATIVE (Negative) S. pyogenes GrpA CIPRIANO Negative (Negative) <Amber Hernandez CNP - Last Filed: 03/27/22 17:59> Prescription Management I considered prescription management with: Other ( Antihypertensives) <Amber Hernandez CNP - Last Filed: 03/27/22 17:59> Chronic Conditions Patient?s care impacted by: Hypertension <Amber Hernandez CNP - Last Filed: 03/27/22 17:59> Discharge Plan Discharge Clinical Impression: Uvulitis, Hypertension <MARLA Odell - Last Filed: 04/02/22 11:23> Patient Disposition: Still a Patient <MARLA Odell - Last Filed: 04/02/22 11:23> Instructions: Uvulitis (ED) <MARLA Odell - Last Filed: 04/02/22 11:23> Additional Instructions: In regards to the swelling of your throat, this is likely due to a reaction from medication that you are taking. As we discussed, you are to stop taking the lisinopril as of today. Do not take any additional doses of your lisinopril. lisinopril can cause this to occur even after long periods of taking the medication. Additionally, do not take additional doses of Terazosin as this may be a reaction to that medication as well. A new prescription for amlodipine was sent to your pharmacy, please take this once daily, for your blood pressure. You need to call your primary care doctor's office when you leave here today, or 1st thing tomorrow morning, to arrange for a follow-up visit within 1 week. They may need to make medication dosage adjustments to your blood pressure medications. A prescription for an EpiPen was sent to your pharmacy. If you develop chest pain, difficulty breathing, throat closing sensation, swelling of the face/ lips, administer the EpiPen as instructed. If you need to use the EpiPen, it is important to present to the emergency department for evaluation after use. you may return back to the emergency department with any new or worsening symptoms or concerns at any time. En lo que respecta a la inflamaci?n de la garganta, es probable que se deba a breezy reacci?n a los medicamentos que est? tomando. [place] comentamos, debe dejar de eddy lisinopril a partir de hoy. No tome ninguna dosis adicional de beyer lisinopril. lisinopril puede hacer que esto ocurra incluso despu?s de largos per?odos de eddy el medicamento. Adem?s, no tome dosis adicionales de Terazosin ya que esto tambi?n puede ser breezy reacci?n a may medicamento. Se envi? breezy nueva receta de amlodipina a beyer farmacia, t?jed breezy vez al d?a para beyer presi?n arterial. Debe llamar al consultorio de beyer m?dico de atenci?n primaria cuando salga de aqu? hoy, o ma?noam a primera hora de la ma?noam, para programar breezy visita de seguimiento dentro de 1 semana. Es posible que necesiten hacer ajustes en la dosis de bryan medicamentos para la presi?n arterial. Se envi? breezy receta para un EpiPen a beyer farmacia. Si desarrolla dolor en el pecho, dificultad para respirar, sensaci?n de que se le roselia la garganta, hinchaz?n de la princess o los labios, administre el EpiPen seg?n las instrucciones. Si necesita usar el EpiPen, es importante que lo presente al departamento de emergencias para breezy evaluaci?n despu?s de beyer uso. puede regresar al departamento de emergencias con cualquier s?ntoma o inquietud nueva o que empeore en cualquier momento. <MARLA Odell - Last Filed: 04/02/22 11:23> Prescriptions: New epinephrine [EpiPen] 0.3 mg/0.3 mL auto-injector 0.3 mg IM Q4H PRN (Reason: anaphylaxis) Qty: 2 0RF No Action carvedilol 3.125 mg tablet 3.125 mg PO BID Qty: 60 5RF lisinopril 20 mg tablet 20 mg PO DAILY 90 Days Qty: 90 1RF amlodipine 10 mg tablet 10 mg PO DAILY Qty: 10 0RF pantoprazole [Protonix] 40 mg tablet,delayed release (DR/EC) 40 mg PO DAILY 90 Days Qty: 90 1RF amlodipine 5 mg tablet 5 mg PO DAILY 90 Days Qty: 90 1RF naproxen 500 mg tablet 500 mg PO BID 30 Days Qty: 60 2RF sildenafil 100 mg tablet 100 mg PO DAILY 5 Days Qty: 5 0RF tamsulosin [Flomax] 0.4 mg capsule 0.4 mg PO BEDTIME Qty: 90 1RF terazosin 5 mg capsule 5 mg PO BEDTIME 30 Days Qty: 30 2RF sildenafil 100 mg tablet 100 mg PO ONCE PRN (Reason: sexual activity) 30 Days Qty: 30 1RF Rx Instructions: administer 60 minutes before intended activity <MARLA Odell - Last Filed: 04/02/22 11:23> Referrals: Rosales Cervantes PA-C [Primary Care Provider] - <MARLA Odell - Last Filed: 04/02/22 11:23> Interventions: ED Discharge Assessment Last Done: 03/27/22 16:21 <MARLA Odell - Last Filed: 04/02/22 11:23> Discharge Date/Time: 03/27/22 16:55 <MARLA Odell - Last Filed: 04/02/22 11:23>
[2022-03-27 12:21] LABS: MANUAL DIFF FLAG NO
[2022-03-27 12:23] LABS: Basophils Percent Auto 0.3 % (0-2); Eosinophils Absolute Auto 0.1 X10*3/uL (0.0-0.4); Eosinophils Percent Auto 1.4 % (0-4); Hematocrit 44.2 % (42.0-52.0); Hemoglobin 14.6 g/dl (14.0-18.0); Imm Gran Abs Auto 0.02 X10*3/uL (0.00-0.03); Imm Gran Pct Auto 0.3 % (0.0-0.4); Lymphocytes Percent Auto 38.1 % (20-40); Mean Corpuscular Hemoglobin 29.9 pg (27.0-33.0); Mean Corpuscular Volume 90.6 fL (80.0-98.0); Monocytes Absolute Auto 0.6 X10*3/uL (0.1-1.2); Monocytes Percent Auto 8.1 % (2-11); Neutrophils Absolute Auto 4.1 x10*3/uL (2.0-8.3); Neutrophils Percent Auto 51.8 % (45-73); Platelet Count 158 X10*3/uL (160-400); Red Blood Count 4.88 X10*6/uL (4.60-5.80); Red Cell Distribution Width 12.5 % (11.0-16.0); White Blood Count 7.9 X10*3/uL (4.8-10.8)
[2022-03-27] MEDS: diphenhydrAMINE HCL 50 MG/ML VIAL IVPUSH (12:26)
[2022-03-27] MEDS: methylPREDNISolone Sod Succ 125 MG/2 ML VIAL IVPUSH (12:26)
[2022-03-27] MEDS: Famotidine/PF 20 MG/2 ML VIAL IVPUSH (12:26)
[2022-03-27 12:31] LABS: INTERNATIONAL NORM RATIO 1.1 (0.9-1.1); Prothrombin Time 12.4 SEC (10.0-13.1)
[2022-03-27 12:32] LABS: IDNOW Serial# 6674DD1D; Strep A Nucleic Acid Negative (Negative)
[2022-03-27 12:33] LABS: Partial Thromboplastin Time 27.2 SEC (26.0-36.4)
[2022-03-27 12:39] LABS: Alanine Aminotransferase 24 U/L (0-40); Albumin Level 3.6 g/dL (3.5-5.0); Alkaline Phosphatase 93 U/L (39-117); Anion Gap 13 (12-20); Aspartate Amino Transferase 23 U/L (5-37); Bilirubin Total 0.5 mg/dL (0.0-1.0); Blood Urea Nitrogen 9 mg/dL (9-16); Calcium 8.6 mg/dL (8.4-10.2); Carbon Dioxide 27 mmol/L (22-29); Chloride 106 mmol/L (96-108); Creatinine Clr Calc Pharmacy 111.7; Estimated Glomerular Filt Rate > 60; Glucose Random 110 mg/dL (60-115); Potassium 3.7 mmol/L (3.3-5.1); Sodium 142 mmol/L (135-145); Total Protein 6.4 g/dL (6.5-8.0)
--- NOTE | 2022-03-27 12:53 | PC.NURSE ---
[place]ian speaking patient medical research assistant utilized, AOx 4 pleasant no distress noted some concern with swelling to back of throat for medication reaction recently started taking terazosin and lisinopril dose has been increased. No stridor or airway impingement noted LS clear throughout. Tolerated IVP medications will CTM
[2022-03-27 13:07] LABS: Influenza A PCR NEGATIVE (Negative); Influenza B PCR NEGATIVE (Negative); Resp Syncy Virus RNA Qual PCR NEGATIVE (Negative); SARS COV2 PCR INHOUSE NEGATIVE (Negative)
--- NOTE | 2022-03-27 15:10 | PC.NURSE ---
Patient resting comfortably no distress noted will CTM
[2022-03-27 16:22] VITALS: BP 168/112; PULSE 78; RESP 78; O2SAT 96
--- NOTE | 2022-03-27 16:22 | PC.NURSE ---
Addendum entered by Nelia Vargas 03/27/22 16:35: assessed vs bp high; notified provider, per provider hold on discharge Original Note: discharge instructions given/explained, IV cath tip intact upon removal, ambulates safely/independently, no respiratory distress, able to speak in full sentences, all questions answered
[2022-03-27] MEDS: amLODIPine Besylate 10 MG TABLET PO (16:54)
--- NOTE | 2022-03-27 16:55 | PC.NURSE ---
discharge instructions given/explained, IV cath tip intact upon removal, ambulates safely/independently, no respiratory distress, able to speak in full sentences, all questions answered
== END 2022-03-27 16:55 | disposition still patient (30) ==
PROVIDERS: Physician Assistant; Emergency Provider Emergency Medicine; PCP Physician Assistant
DX: K12.2 Cellulitis and abscess of mouth (principal); I10 Essential (primary) hypertension; Z20.822 Contact with and (suspected) exposure to COVID-19; Z20.828 Contact with and (suspected) exposure to other viral communicable diseases; E66.9 Obesity, unspecified; Z68.39 Body mass index [BMI] 39.0-39.9, adult; Z79.899 Other long term (current) drug therapy
CPT/HCPCS: 0241U; 36415; 80053; 85025; 85610; 85730; 87651; 96374; 96375; 99284; J1200; J2930

== ENCOUNTER 2022-06-08 08:59 | Outpatient (REF) | payer MEDICARE, MEDICAID, SELFPAY ==
[2022-06-08 09:46] LABS: Hematocrit 49.3 % (42.0-52.0); Hemoglobin 16.3 g/dl (14.0-18.0); Mean Corpuscular HGB Conc 33.1 g/dl (31.0-36.0); Mean Corpuscular Hemoglobin 29.4 pg (27.0-33.0); Platelet Count 201 X10*3/uL (160-400); Red Blood Count 5.54 X10*6/uL (4.60-5.80); Red Cell Distribution Width 12.7 % (11.0-16.0); White Blood Count 9.6 X10*3/uL (4.8-10.8)
[2022-06-08 10:48] LABS: Appearance Urine Cloudy; Color Urine Dark Yellow; Glucose Urine UA Negative (Negative); Leukocyte Esterase Urine Trace (Negative); Nitrite Urine Negative (Negative); Specific Gravity - Urine 1.025 (1.005-1.025); UMIC TRIGGER UACC YES; Urine Blood Small (1+) (Negative); Urine Ketones Trace mg/dL (Negative); Urine Protein 30 (1+) mg/dL (Neg-Trace)
[2022-06-08 10:56] LABS: Alanine Aminotransferase 25 U/L (0-40); Albumin Level 4.2 g/dL (3.5-5.0); Alkaline Phosphatase 105 U/L (39-117); Anion Gap 11 (12-20); Aspartate Amino Transferase 20 U/L (5-37); Bilirubin Total 1.4 mg/dL (0.0-1.0); Blood Urea Nitrogen 11 mg/dL (9-16); Calcium 8.8 mg/dL (8.4-10.2); Carbon Dioxide 29 mmol/L (22-29); Chloride 107 mmol/L (96-108); Cholesterol 157 mg/dL; Estimated Glomerular Filt Rate > 60; Glucose Fasting 98 mg/dL (60-99); HDL Cholesterol 34 mg/dL; LDL Cholesterol Calculated 101 mg/dl; Potassium 3.7 mmol/L (3.3-5.1); Sodium 143 mmol/L (135-145); Total Protein 7.2 g/dL (6.5-8.0); Triglycerides 114 mg/dL
[2022-06-08 11:04] LABS: Bacteria Urine None Seen (None Seen); Hyaline Casts Urine 0-2 /LPF (0-2); Squamous Epithelial Cell Urine 0-2 /HPF (0-2); WBC Urine 0-5 /HPF (0-5)
== END 2022-06-08 09:00 | disposition home or self-care (01) ==
LOC: HO.LAB 08:59
PROVIDERS: Urology; PCP Physician Assistant; Visit Provider Physician Assistant
DX: N40.1 Benign prostatic hyperplasia with lower urinary tract symptoms (principal); R35.1 Nocturia; N52.8 Other male erectile dysfunction; R30.0 Dysuria; I10 Essential (primary) hypertension; Z79.899 Other long term (current) drug therapy; Z12.5 Encounter for screening for malignant neoplasm of prostate
CPT/HCPCS: 36415; 51798; 80053; 80061; 81001; 84153; 85027; 99212

== ENCOUNTER 2022-06-20 09:53 | Emergency (ER) | payer MEDICARE, MEDICAID, SELFPAY ==
--- NOTE | ~2022-06-20 | XR_ITS ---
EXAMINATION: XR ANKLE, LEFT CLINICAL INFORMATION: Pain COMPARISON: None available. TECHNIQUE: AP, lateral, and mortise views of the left ankle. FINDINGS: Mortise intact. There appears to be chronic cystic irregularity along the plafond and mild spurring off the medial malleolus. In the left ankle, there is no acute fracture, dislocation or destructive process. Small plantar spur noted. XR/XR ankle LT 2V IMPRESSION: Chronic changes observed. No acute abnormalities.
--- NOTE | ~2022-06-20 | XR_ITS ---
EXAMINATION: XR FOOT, LEFT CLINICAL INFORMATION: Pain COMPARISON: None available. TECHNIQUE: AP, lateral, and oblique views of the left foot. FINDINGS: Small plantar spur. Areas of chronic cystic change in the first metatarsal and first proximal phalanx. No erosive or destructive processes to suggest an acute inflammatory process. There is no acute fracture, dislocation or destructive process. XR/XR foot LT 2V IMPRESSION: No acute findings.
[2022-06-20 10:46] VITALS: BP 121/87; PULSE 83; RESP 20; TEMP 36.5; O2SAT 95; BMI 38.7
--- NOTE | 2022-06-20 11:02 | ED_ITS ---
HPI - General Adult General Chief complaint: Extremity Injury, Lower Stated complaint: L leg injury Time Seen by Provider: 06/20/22 11:00 Source: patient Mode of arrival: ambulatory Limitations: no limitations History of Present Illness HPI narrative: Patient is a 66 year old assigned male at with a history of GERD and HTN presenting to the emergency department today with left ankle pain. Patient states that on 06/17/2022 he twisted his left ankle and is continuing to have pain. Patient denies hitting his head with the incident. Patient denies any loss of consciousness with the incident. Patient denies any dizziness, lightheadedness, abdominal pain, nausea, vomiting, fever, chills, blurry vision, double vision, loss of vision, chest pain, difficulty breathing, shortness of breath, back pain, night sweats, pain with urination, increased urinary frequency, increased urinary urgency, blood in his urine or stool, syncope or a near syncopal episode, bowel incontinence, bladder incontinence, bowel reten tion, bladder retention, or any other complaints at this time. Onset (ago): day(s) (3) Location: left and lower extremity Severity: mild Severity scale (1-10): 3 Quality: aching and dull Pain Consistency: constant Relieving factors: none Exacerbating factors: none Associated symptoms: denies other symptoms Treatments prior to arrival: none Related Data Previous Rx's Medication Instructions Recorded naproxen 500 mg tablet 500 mg PO BID 30 days #60 tabs 08/02/21 carvedilol 3.125 mg tablet 3.125 mg PO BID #60 tabs 12/05/21 sildenafil 100 mg tablet 100 mg PO DAILY 5 days #5 tabs 02/23/22 sildenafil 100 mg tablet 100 mg PO ONCE PRN sexual activity 03/22/22 30 days #30 tabs lisinopril 20 mg tablet 20 mg PO DAILY 90 days #90 tabs 03/26/22 epinephrine 0.3 mg/0.3 mL 0.3 mg (0.3 mL) IM Q4H PRN 03/27/22 injection, auto-injector (EpiPen) anaphylaxis #2 ea pantoprazole 40 mg tablet,delayed 40 mg PO DAILY 90 days #90 tabs 03/28/22 release (Protonix) amlodipine 10 mg tablet 10 mg PO DAILY 90 days #90 tabs 05/02/22 terazosin 10 mg capsule 10 mg PO BEDTIME 30 days #30 caps 06/08/22 Allergies Allergy/AdvReac Type Severity Reaction Status Date / Time No Known Allergies Allergy Verified 06/20/22 10:48 Review of Systems Constitutional: Constitutional: Reports no additional constitutional complaints, Denies chills, Denies fever(s) and Denies night sweats Eyes: Eyes: Reports no additional eye complaints, Denies blurry vision, Denies change in vision, Denies diplopia, Denies eye discharge, Denies loss of vision and Denies eye pain ENT: Denies dizziness Cardiovascular: Cardiovascular: Reports no additional cardiovascular complaints, Denies chest pain, Denies lightheadedness, Denies Loss of Consciousness and Denies dyspnea Respiratory: Respiratory: Reports no additional respiratory complaints and Denies dyspnea Gastrointestinal: Gastrointestinal: Reports no additional gastrointestinal complaints, Denies abdominal pain, Denies melena, Denies hematochezia, Denies change in bowel habits and Denies change in stool character Genitourinary: Genitourinary: Reports no additional male genitourinary complaints, Denies hematuria, Denies oliguria, Denies difficulty urinating, Denies dysuria, Denies urinary frequency, Denies urinary hesitancy, Denies urinary incontinence and Denies urinary urgency Musculoskeletal: Musculoskeletal: Reports no additional musculoskeletal complaints, Denies numbness and Denies tingling Comments: left ankle pain Neurologic: Denies dizziness, Denies loss of vision, Denies numbness and Denies tingling Psychiatric: Psychiatric: Reports no additional psychiatric complaints Endocrine: Endocrine: Reports no additional endocrine complaints Hematologic/Lymphatic: Hematologic/Lymphatic: Reports no additional hematologic/lymphatic complaints Allergic/Immunologic: Allergic/Immunologic: Reports no additional allergic/immunologic complaints [facility] Past Medical History Attestation statement: The following information was validated with the patient. Source: old records reviewed and nursing notes reviewed Medical History HTN (hypertension) PVC (premature ventricular contraction) Surgical History History of lumbar surgery Social History Social History Housing: Apartment Alcohol intake: unknown Patient Tobacco Use Status: Never used Tobacco e-Cigarette/Vaping Use: Never Used Advance Directives: No service: No Current occupational status: employed Cognitive needs: No Hearing needs: No Vision needs: Yes Physical Exam ED Vital Signs: Vital Signs - 24 hr 06/20/22 10:46 Temperature 97.7 F Pulse Rate 83 Respiratory Rate 20 Blood Pressure 121/87 Pulse Oximetry 95 Oxygen Delivery Method Room Air BMI result Body Mass Index 38.7 Const General: cooperative, no acute distress, alert and awake Nutritional Appearance: well nourished Orientation/consciousness: patient oriented x3 Limitations: no limitations HENMT Head: Yes normal to inspection and Yes atraumatic Ears: hearing grossly normal bilaterally and external ears normal General nose exam: Normal external nose present, no nasal discharge noted and no epistaxis Face and sinus: Yes normal facial exam, No abrasion and No laceration Mouth: Normal oral and palatal mucosa present, no drooling and no muffled voice Eyes General: appearance normal, both eyes and all related structures Periorbital: periorbital findings normal Eyelids: Yes eyelids normal Conjunctivae: conjunctivae normal Pupils: Equal, round and reactive pupils present EOM: EOMs intact bilaterally Neck Neck: Yes normal visual inspection, Yes full ROM and Yes no lymphadenopathy Chest Chest palpation & inspection: normal inspection of the chest Resp Effort & Inspection: normal respiratory effort and able to speak in complete sentences GI Inspection: Yes normal to inspection Neuro General: patient oriented x3 and moves all extremities Cranial nerves: Yes Equal, round and reactive pupils present Cognition (Neuro): normal cognition Motor exam (neuro): 5/5 motor strength present throughout Sensory Exam: Normal double simultaneous stimulation for sensation Coordination: [id number] test normal Extrem Other: swelling present to the lateral left ankle with pain to palpation over the left lateral ankle General: Yes full ROM and Yes capillary refill normal Psych Appearance: grossly normal Mental Status: mental status grossly normal Affect: normal affect Attitude: cooperative Thought process: Normal thought process present Thought content: Normal thought content present Insight: Good insight present (Psych) Procedures Orthopedic Splinting/Casting Injury #1: Side: left Lower Extremity Injury Location: ankle Lower Extremity Immobilizer: boot orthosis Other Orthopedic Equipment: crutches Medical Decision Making Medical Decision Making MDM Narrative: Patient is a 66 year old assigned male at with a history of HTN and GERD presenting to the emergency department today with left ankle pain. Patient's physical exam showed minimal swelling to the left lateral ankle with associated pain to palpation of the left lateral ankle. Patient's left ankle and left foot x-rays showed no acute process. I explained my physical exam findings as well as all test results to the patient. I answered all questions asked by the patient. Patient's left ankle was placed in a walking boot and the patient was given crutches, without incident. Patient's PMS was intact prior to and after boot placement. I stressed the importance of the patient taking his medication as prescribed. I stressed the importance of the patient following up with his primary care provider and orthopedic provider. I stressed the importance of the patient returning to the emergency department immediately if his symptoms were to worsen or if he were to develop any dizziness, shortness of breath, difficulty breathing, chest pain, blurry vision, loss of vision, nausea, vomiting, abdominal pain, fever, chills, back pain, or any other complaints. Patient verbalized agreement and understanding with this treatment plan and discharge. Differential Diagnosis Differential Diagnoses: The differential diagnosis associated with the presentation includes left ankle injury, left ankle sprain, left ankle strain Independent Interpretation I performed an independent interpretation of an: Plain X-Ray Interpretation: My interpretation is in agreement with the radiologist's impression of these imaging studies. EXAMINATION: XR FOOT, LEFT CLINICAL INFORMATION: Pain? COMPARISON: None available.? TECHNIQUE: AP, lateral, and oblique views of the left foot. FINDINGS: Small plantar spur. Areas of chronic cystic change in the first metatarsal and first proximal phalanx. No erosive or destructive processes to suggest an acute inflammatory process. There is no acute fracture, dislocation or destructive process.? XR/XR foot LT 2V IMPRESSION: No acute findings. Dictated By: Errol Allen MD Signed By: Electronically signed by Errol Allen MD 06/20/22 1308 EXAMINATION: XR ANKLE, LEFT CLINICAL INFORMATION: Pain? COMPARISON: None available.? TECHNIQUE: AP, lateral, and mortise views of the left ankle. FINDINGS: Mortise intact. There appears to be chronic cystic irregularity along the plafond and mild spurring off the medial malleolus. In the left ankle, there is no acute fracture, dislocation or destructive process. Small plantar spur noted.? XR/XR ankle LT 2V IMPRESSION: Chronic changes observed. No acute abnormalities. Dictated By: Errol Allen MD Signed By: Electronically signed by Errol Allen MD 06/20/22 1247 Discharge Plan Discharge Clinical Impression: Ankle sprain Patient Disposition: Home, Self-Care Instructions: Ankle Sprain (DC) Additional Instructions: Follow up with your primary care provider. Return to the emergency department immediately if your symptoms worsen or if you develop any dizziness, shortness of breath, difficulty breathing, chest pain, blurry vision, loss of vision, nausea, vomiting, abdominal pain, fever, chills, back pain, or any other complaints. Prescriptions: No Action carvedilol 3.125 mg tablet 3.125 mg PO BID Qty: 60 5RF lisinopril 20 mg tablet 20 mg PO DAILY 90 Days Qty: 90 1RF pantoprazole [Protonix] 40 mg tablet,delayed release (DR/EC) 40 mg PO DAILY 90 Days Qty: 90 1RF amlodipine 10 mg tablet 10 mg PO DAILY 90 Days Qty: 90 1RF epinephrine [EpiPen] 0.3 mg/0.3 mL auto-injector 0.3 mg IM Q4H PRN (Reason: anaphylaxis) Qty: 2 0RF naproxen 500 mg tablet 500 mg PO BID 30 Days Qty: 60 2RF sildenafil 100 mg tablet 100 mg PO DAILY 5 Days Qty: 5 0RF terazosin 10 mg capsule 10 mg PO BEDTIME 30 Days Qty: 30 1RF sildenafil 100 mg tablet 100 mg PO ONCE PRN (Reason: sexual activity) 30 Days Qty: 30 1RF Rx Instructions: administer 60 minutes before intended activity Referrals: [facility] [Provider Group] (Call to establish and follow up with an orthopedic provider) Rosales Cervantes PA-C [Primary Care Provider] - Stand Alone Forms: Work/School Release Interventions: ED Discharge Assessment Last Done: 06/20/22 13:15 Discharge Date/Time: 06/20/22 13:19 Print Language: Mohawk
== END 2022-06-20 13:19 | disposition home or self-care (01) ==
PROVIDERS: Emergency Provider Emergency Medicine; PCP Physician Assistant
DX: S93.402A Sprain of unspecified ligament of left ankle, initial encounter (principal); M25.572 Pain in left ankle and joints of left foot; X58.XXXA Exposure to other specified factors, initial encounter; Y93.9 Activity, unspecified; Y92.9 Unspecified place or not applicable; Y99.9 Unspecified external cause status; Z79.899 Other long term (current) drug therapy
CPT/HCPCS: 73600; 73620; 99282; 99283

== ENCOUNTER → 2022-07-09 10:48 | Outpatient (BNVA) | payer MEDICARE, MEDICAID, SELFPAY | PROVIDERS: PCP Physician Assistant; Visit Provider Physician Assistant | DX: S93.492A Sprain of other ligament of left ankle, initial encounter (principal) | CPT/HCPCS: 99202 ==

== ENCOUNTER 2022-08-05 17:23 | Emergency (ER) | payer MEDICARE, MEDICAID, SELFPAY ==
--- NOTE | ~2022-08-05 | XR_ITS ---
EXAMINATION: XR LUMBOSACRAL SPINE CLINICAL INFORMATION: Lower back pain COMPARISON: 08/03/2021 TECHNIQUE: Three views of the lumbosacral spine. FINDINGS: Posterior fusion hardware from L4 through S1 with disc spacer at L4-L5. Intact hardware. Vertebral body height and alignment maintained. Remaining disc spaces are maintained. Increased endplate osteophyte formation at L1-L2. DISH of the thoracic spine. Normal bowel gas pattern. XR/XR lumbar spine 2-3V IMPRESSION: 1. Intact fusion hardware from L4 through S1. 2. Mild degenerative change of the upper lumbar spine. Progressive from prior.
[2022-08-05 17:24] VITALS: BP 105/90; PULSE 100; RESP 18; TEMP 36.9; O2SAT 99; BMI 39.9
--- NOTE | 2022-08-05 17:27 | ED.GENADULT ---
HPI - General Adult General Chief complaint: Back Pain/Injury Stated complaint: Back pain Time Seen by Provider: 08/05/22 21:52 Source: patient Mode of arrival: ambulatory Limitations: no limitations History of Present Illness HPI narrative: Patient with history of low back pain status post lumbar fusion about 8 years ago was doing okay without significant pain or requiring any pain medication noticed pain in the lower back without any significant injury while moving around no radiation of pain to the lower extremity no bladder or bowel incontinence no loss of sensations no leg weakness Related Data Previous Rx's Medication Instructions Recorded naproxen 500 mg tablet 500 mg PO BID 30 days #60 tabs 08/02/21 carvedilol 3.125 mg tablet 3.125 mg PO BID #60 tabs 12/05/21 sildenafil 100 mg tablet 100 mg PO ONCE PRN sexual activity 03/22/22 30 days #30 tabs epinephrine 0.3 mg/0.3 mL 0.3 mg (0.3 mL) IM Q4H PRN 03/27/22 injection, auto-injector (EpiPen) anaphylaxis #2 ea terazosin 10 mg capsule 10 mg PO BEDTIME 30 days #30 caps 06/08/22 acetaminophen 500 mg tablet 500 mg PO Q6H fever 7 days #28 tabs 07/03/22 amlodipine 10 mg tablet 10 mg PO DAILY 90 days #90 tabs 07/03/22 lisinopril 20 mg tablet 20 mg PO DAILY 90 days #90 tabs 07/03/22 pantoprazole 40 mg tablet,delayed 40 mg PO DAILY 90 days #90 tabs 07/03/22 release (Protonix) triamcinolone acetonide 0.1 % 1 appl topical DAILY 15 days #30 07/03/22 topical cream grams cyclobenzaprine 10 mg tablet 10 mg PO Q8H #20 tabs 08/06/22 oxycodone 5 mg tablet 5 mg PO Q6H PRN pain #20 tabs 08/06/22 Allergies Allergy/AdvReac Type Severity Reaction Status Date / Time No Known Allergies Allergy Verified 07/09/22 11:39 Review of Systems Review of Systems: Yes all other systems are reviewed and are negative PMFSH Past Medical History Medical History HTN (hypertension) PVC (premature ventricular contraction) Surgical History History of lumbar surgery Social History Social History Housing: Apartment Alcohol intake: unknown Patient Tobacco Use Status: Never used Tobacco e-Cigarette/Vaping Use: Never Used Second Hand Smoke Exposure: No Advance Directives: No Advance Directives Information Provided: Yes service: No Current occupational status: employed Current occupational exposures/hazards: No Cognitive needs: No Hearing needs: No Vision needs: Yes Physical Exam ED Vital Signs: Vital Signs - 24 hr 08/05/22 17:24 Temperature 98.5 F Pulse Rate 100 Respiratory Rate 18 Blood Pressure 105/90 H Pulse Oximetry 99 Oxygen Delivery Method Room Air BMI result Body Mass Index 39.9 Appearance: Alert. Oriented X3. No acute distress. Neck: Normal inspection. Neck supple. CVS: Normal heart rate and rhythm. Pulses normal. Respiratory: No respiratory distress. Equal air entry bilateral, Abdomen: Soft and nontender. Bowel sounds are present, no mass palpable, no CVA tenderness Skin: Skin warm and dry. Normal skin color. Normal skin turgor. back: Diffuse tenderness L2-L4 SLR negative bilaterally neurovascular intact deep tender reflexes 2+ normal sacral sensation Extremities: No lower extremity edema. No calf tenderness Neuro: Oriented X 3. No motor deficit. No sensory deficit.No cerebellar signs , cranial nerves II-XII intact Course Course Course Narrative: RmE: 66 yold male presents to the ED for chronic low back exacerbation. no recent truam or abdominal/ complaints. Medications Administered Discontinued Medications Generic Name Dose Route Start Last Admin Trade Name Pineda PRN Reason Stop Dose Admin Cyclobenzaprine HCl 10 mg 08/05/22 21:59 08/05/22 23:06 Cyclobenzaprine Hcl 10 Mg Tablet PO 08/05/22 22:00 10 mg ONCE ONE Administration Morphine Sulfate 4 mg 08/05/22 21:58 08/05/22 23:06 Morphine Sulfate 4 Mg/Ml Cartridge IM 08/05/22 21:59 4 mg ONCE ONE Administration Protocol Medical Decision Making Medical Decision Making [facility] Narrative: Patient x-ray shows arthritis patient ambulatory in the ER likely patient has lumbar spinal stenosis advised to follow-up with PCP Discharge Plan Discharge Clinical Impression: Strain of lumbar region Patient Disposition: Home, Self-Care Instructions: Low Back Strain (ED) Additional Instructions: Rest apply ice Pain medication muscle relaxant as advised Follow-up with your PCP if pain continues Prescriptions: New cyclobenzaprine 10 mg tablet 10 mg PO Q8H Qty: 20 0RF oxycodone 5 mg tablet 5 mg PO Q6H PRN (Reason: pain) Qty: 20 0RF Rx Instructions: Partial Fill upon patient request. No Action carvedilol 3.125 mg tablet 3.125 mg PO BID Qty: 60 5RF epinephrine [EpiPen] 0.3 mg/0.3 mL auto-injector 0.3 mg IM Q4H PRN (Reason: anaphylaxis) Qty: 2 0RF naproxen 500 mg tablet 500 mg PO BID 30 Days Qty: 60 2RF acetaminophen 500 mg tablet 500 mg PO Q6H 7 Days Qty: 28 0RF amlodipine 10 mg tablet 10 mg PO DAILY 90 Days Qty: 90 3RF lisinopril 20 mg tablet 20 mg PO DAILY 90 Days Qty: 90 1RF pantoprazole [Protonix] 40 mg tablet,delayed release (DR/EC) 40 mg PO DAILY 90 Days Qty: 90 1RF triamcinolone acetonide 0.1 % cream 1 appl topical DAILY 15 Days Qty: 30 0RF terazosin 10 mg capsule 10 mg PO BEDTIME 30 Days Qty: 30 1RF sildenafil 100 mg tablet 100 mg PO ONCE PRN (Reason: sexual activity) 30 Days Qty: 30 1RF Rx Instructions: administer 60 minutes before intended activity Interventions: ED Discharge Assessment Last Done: 08/06/22 01:07 Discharge Date/Time: 08/06/22 01:08
[2022-08-05] MEDS: Cyclobenzaprine HCl 10 MG TABLET PO (23:06)
[2022-08-05] MEDS: Morphine Sulfate 4 MG/ML CARTRIDGE IM (23:06)
== END 2022-08-06 01:08 | disposition home or self-care (01) ==
PROVIDERS: Emergency Provider Internal Medicine; PCP Physician Assistant
DX: M54.50 Low back pain, unspecified (principal); Z79.899 Other long term (current) drug therapy
CPT/HCPCS: 72100; 96372; 99283; 99284; J2270

== ENCOUNTER 2022-11-07 13:21 | Outpatient (AMB) | payer MEDICARE, SELFPAY ==
[2022-11-07 13:25] VITALS: BP 128/80; PULSE 71; O2SAT 98; BMI 39.9
--- NOTE | 2022-11-07 13:25 | A.OFFPC_ITS ---
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 Allergies No Known Allergies Allergy (Verified 11/07/22 13:45) Medication List - Last Reconciled 11/07/22 by MANDY Fletcher acetaminophen 500 mg PO Q6H 7 days amlodipine 10 mg PO DAILY 90 days carvedilol 3.125 mg PO BID cyclobenzaprine 10 mg PO Q8H epinephrine (EpiPen) 0.3 mg (0.3 mL) IM Q4H PRN lisinopril 20 mg PO DAILY 90 days naproxen 500 mg PO BID 30 days oxycodone 5 mg PO Q6H PRN pantoprazole (Protonix) 40 mg PO DAILY 90 days sildenafil 100 mg PO ONCE PRN 30 days terazosin 10 mg PO BEDTIME 30 days triamcinolone acetonide 0.1% 1 appl topical DAILY 15 days Tobacco use date assessed: 11/07/22 Fall risk assessment: No Falls in past year Last assessed Fall Risk: 11/07/22 HPI Pain In Groin Area 2 HPI0 Details Patient is a 66-year-old male presents today for the same day visit due to pain in bilateral groin for the past 3 days, he reports that right groin pain is improving today. Patient of MARLA Cervantes. medical history significant for hypertension, GERD, BPH cardiomyopathy. Patient reports that about 3 days ago he did have very mild burning with urination which have resolved now. He denies any fever or chills, no nausea or vomiting, no back pain. He reports that he took Tylenol with no much improvement. Although reports that current pain is better today. Denies this pain in the past. Denies lifting anything heavy. Patient is a Turkmen-speaking and Vandana was helping with interpretation. [facility] Medical History PVC (premature ventricular contraction) HTN (hypertension) Surgical History History of lumbar surgery Social History Housing: Apartment Alcohol intake: unknown Patient Tobacco Use Status: Never used Tobacco e-Cigarette/Vaping Use: Never Used Second Hand Smoke Exposure: No service: No Current occupational status: employed Current occupational exposures/hazards: No Cognitive needs: No Hearing needs: No Vision needs: Yes Questionnaire Thrive Questionnaire Date Thrive assessed: 07/03/22 AUDIT C Alcohol Use Questionnaire (AUDIT-C) 1. How often do you have a drink containing alcohol?: Never Total Score: 0 Score Reviewed/Action Taken: No ZOE-7 AMB Questionnaire ZOE-7 Date ZOE - 7 assessed: 07/03/22 Source: Developed by Drs. Erik Fermin, Christi Obregon, Kane Mike and colleagues, with an educational jailyn from [employer]. Review of Systems Const Denies body aches, Denies chills, Denies fever(s) and Denies headache(s) ENT Denies dizziness, Denies otalgia, Denies headache(s), Denies nasal discharge, Denies sinus pain and Denies sore throat Card Denies chest pain, Denies edema, Denies lightheadedness and Denies dyspnea Resp Denies dyspnea and Denies wheezing GI Denies abdominal pain, Denies constipation, Denies diarrhea, Denies nausea and Denies vomiting Details: Bilateral groin pain, improving today Denies hematuria, Denies difficulty urinating, Denies dysuria, Denies flank pain and Reports urinary frequency (At night chronic) Musc Denies myalgias, Denies arthralgias and Denies joint swelling Skin/Breast Denies lesions, Denies rash and Denies unusual bruising Neuro Denies dizziness and Denies headache(s) Aller/Immun Denies wheezing Physical exam (Primary Care) Vital Signs: Last Vital Signs Pulse 71 11/07/22 13:25 BP 128/80 11/07/22 13:25 Pulse Ox 98 11/07/22 13:25 Oxygen Delivery Method Room Air 11/07/22 13:25 BMI result Body Mass Index 39.9 Tobacco/Smoking Status: Tobacco use Status Tobacco use date assessed 11/07/22 11/07/22 13:26 Patient Tobacco Use Status Never used Tobacco 11/07/22 13:26 e-Cigarette/Vaping Use Never Used 11/07/22 13:26 Thrive Assessment: Date of Thrive Assessment Date Thrive assessed 07/03/22 11/07/22 13:26 Const General: cooperative and no acute distress Orientation/consciousness: patient oriented x3 HENMT Head: Yes normocephalic and Yes atraumatic Mouth: oropharynx normal and moist mucous membranes Throat: Yes posterior oropharynx normal Eyes General: appearance normal, both eyes and all related structures Neck Neck: Yes normal visual inspection, Yes full ROM and Yes no lymphadenopathy Resp Effort & Inspection: normal respiratory effort and able to speak in complete sentences Auscultation: clear to auscultation bilaterally, no crackles, no rales, no rhonchi and no wheezes Cardio Rate: regular rate Rhythm: regular rhythm Heart sounds: S1 normal heart sound present and S2 normal heart sound present GI Palpation (GI): Soft to palpation, not firm, nontender, no guarding, not rigid and no hepatosplenomegaly Auscultation: normal bowel sounds General: No CVA tenderness Male genitals images: 2 1. Left groin mild tenderness noted, no bulging noted, skin is intact Right groin no tenderness, skin is intact Back/Spine/Pelvis Back: No CVA tenderness Skin General skin exam: no rashes or lesions noted Neuro General: patient oriented x3 Gait exam (Neuro): Normal gait present Extrem General: Yes full ROM and No edema Assessment and Plan Assessment & Plan (1) Bilateral groin pain: Code(s): R10.31 - Right lower quadrant pain; R10.32 - Left lower quadrant pain Plan: Left groin mild tenderness noted, no bulging noted, skin is intact Right groin no tenderness, skin is intact Will obtain urgent pelvic ultrasound to rule out hernias Signs and symptoms reviewed when to notify provider or go to the emergency department Precautions reviewed with the patient Patient agreed with the plan Orders: Orders 2 US pelvic complete 11/07/22 R10.31 - Right lower quadrant pain, R10.32 - Left lower quadrant pain Medications: Refilled 2 terazosin 10 mg PO BEDTIME 30 days 30 caps 1RF N40.1 - Benign prostatic hyperplasia with lower urinary tract symptoms, R35.0 - Frequency of micturition, R35.1 - Nocturia pantoprazole (Protonix) 40 mg PO DAILY 90 days 90 tabs 1RF K21.9 - Gastro- esophageal reflux disease without esophagitis Coding Level of Care Code Est Pt Level 3 (59197) Diagnoses Bilateral groin pain R10.31; R10.32
== END 2022-11-07 14:08 | disposition home or self-care (01) ==
PROVIDERS: PCP Physician Assistant; Visit Provider Nurse Practitioner Family
DX: R10.31 Right lower quadrant pain (principal); R10.32 Left lower quadrant pain
CPT/HCPCS: 99213

== ENCOUNTER 2022-11-30 11:26 | Outpatient (REF) | payer MEDICARE, MEDICAID, SELFPAY | END 2022-11-30 11:27 | disposition home or self-care (01) | LOC: HO.US 11:26 | PROVIDERS: Visit Provider Nurse Practitioner Family | DX: R10.32 Left lower quadrant pain (principal); R10.31 Right lower quadrant pain | CPT/HCPCS: 76857 ==

== ENCOUNTER 2022-12-24 15:17 | Emergency (ER) | payer MEDICARE, MEDICAID, SELFPAY ==
[2022-12-24 15:45] VITALS: BP 145/89; PULSE 85; RESP 20; TEMP 36.7; O2SAT 94; BMI 41.0
--- NOTE | 2022-12-24 15:45 | ED_ITS ---
HPI - General Adult General Chief complaint: Upper Respiratory Symptoms Stated complaint: throat pain Time Seen by Provider: 12/24/22 17:52 Source: patient Mode of arrival: ambulatory Limitations: no limitations History of Present Illness HPI narrative: 67-year-old male presents to the ED with sore throat, nasal congestion, and slight cough. Patient denies any chest pain or shortness of breath. Patient states no weakness or dizziness. Patient states no pleurisy, leg swelling, calf pain, or coughing up blood. Related Data Previous Rx's Medication Instructions Recorded naproxen 500 mg tablet 500 mg PO BID 30 days #60 tabs 08/02/21 carvedilol 3.125 mg tablet 3.125 mg PO BID #60 tabs 12/05/21 epinephrine 0.3 mg/0.3 mL 0.3 mg (0.3 mL) IM Q4H PRN 03/27/22 injection, auto-injector (EpiPen) anaphylaxis #2 ea acetaminophen 500 mg tablet 500 mg PO Q6H fever 7 days #28 tabs 07/03/22 amlodipine 10 mg tablet 10 mg PO DAILY 90 days #90 tabs 07/03/22 lisinopril 20 mg tablet 20 mg PO DAILY 90 days #90 tabs 07/03/22 triamcinolone acetonide 0.1 % 1 appl topical DAILY 15 days #30 07/03/22 topical cream grams cyclobenzaprine 10 mg tablet 10 mg PO Q8H #20 tabs 08/06/22 oxycodone 5 mg tablet 5 mg PO Q6H PRN pain #20 tabs 08/06/22 sildenafil 100 mg tablet 100 mg PO ONCE PRN sexual activity 10/15/22 30 days #30 tabs pantoprazole 40 mg tablet,delayed 40 mg PO DAILY 90 days #90 tabs 11/07/22 release (Protonix) terazosin 10 mg capsule 10 mg PO BEDTIME 30 days #30 caps 11/07/22 benzonatate 200 mg capsule 200 mg PO TID PRN cough 5 days #15 12/24/22 caps Allergies Allergy/AdvReac Type Severity Reaction Status Date / Time No Known Allergies Allergy Verified 11/07/22 13:45 Review of Systems Review of Systems: Sore throat, nasal congestion, slight cough Yes all other systems are reviewed and are negative PMFSH Past Medical History Medical History PVC (premature ventricular contraction) HTN (hypertension) Surgical History History of lumbar surgery Social History Social History Housing: Apartment Alcohol intake: unknown Patient Tobacco Use Status: Never used Tobacco e-Cigarette/Vaping Use: Never Used Second Hand Smoke Exposure: No Advance Directives: No Advance Directives Information Provided: No service: No Current occupational status: employed Current occupational exposures/hazards: No Cognitive needs: No Hearing needs: No Vision needs: Yes Physical Exam ED Vital Signs: Vital Signs - 24 hr 12/24/22 15:45 Temperature 98.1 F Pulse Rate 85 Respiratory Rate 20 Blood Pressure 145/89 H Pulse Oximetry 94 Oxygen Delivery Method Room Air BMI result Body Mass Index 41.0 Const General: cooperative, healthy appearing and comfortable Orientation/consciousness: oriented to person, oriented to place, oriented to time and patient oriented x3 HENMT Head: Yes normal to inspection, Yes No palpable skull fracture present, Yes normocephalic and Yes atraumatic Throat: Yes posterior oropharynx normal, Yes tonsils normal and Yes uvula midline Eyes General: appearance normal, both eyes and all related structures Neck Neck: Yes normal visual inspection, Yes full ROM, Yes no lymphadenopathy, Yes no meningeal signs, Yes trachea midline, Yes supple, No anterior neck swelling and No tender Chest Chest palpation & inspection: normal inspection of the chest and normal palpation of entire chest wall Resp Effort & Inspection: normal respiratory effort and able to speak in complete sentences Auscultation: clear to auscultation bilaterally Cardio Jugular venous distension: no JVD Heart sounds: S1 normal heart sound present and S2 normal heart sound present GI Inspection: Yes normal to inspection and No abdominal wall ecchymosis Palpation (GI): Soft to palpation, not firm, nontender, no guarding and not rigid General: No CVA tenderness and Yes no CVA tenderness Back/Spine/Pelvis Back: no CVA tenderness, No CVA tenderness and No back tenderness Skin General skin exam: no rashes or lesions noted, elasticity normal and turgor normal Neuro General: oriented to person, oriented to place, oriented to time, patient oriented x3, gait normal, tone normal, moves all extremities, Normal light touch and pain sensation, no meningeal signs, no focal motor deficits, CN's II-XI intact bilaterally and normal sensation to monofilament Extrem Other: bilateral lower extremity negative for swelling, pitting edema, or calf tenderness General: Yes normal to inspection and Yes full ROM Psych Appearance: grossly normal, well kempt and not disheveled Course Course Course Narrative: This is an RME: Additional HPI, ROS, PE not included below will be deferred to primary provider. This is a [id number]-male, hx of HTN, and PVC, presenting to the ER with a complaint of sore throat and congestion x 2 days. No fevers or chills. Plan: Strep test, viral swabs Medical Decision Making Medical Decision Making [facility] Narrative: 57-year-old male presents to the ED for slight cough, sore throat, nasal congestion for couple of days. Patient states no chest pain or shortness of breath. patient denies any leg swelling, calf pain, Pleurisy, or coughing up blood. Patient denies any drooling, change in voice, or trouble swallowing food/liquid. Negative for any neck or facial swelling. No signs of peritonsillar abscess. Not suspecting eb angina or retropharygneal abscess. Lungs are clear. not suspecting pneumonia. Repeat 02 saturation 95%. Differential Diagnosis Differential Diagnoses: The differential diagnosis associated with the presentation includes ( COVID, RSV, influenza, strep, URI) Lab Data [facility] Lab Attestation statement: I reviewed the patient's lab results. Labs: Lab Results 12/24/22 Range/Units 17:00 Influenza Type A (PCR) NEGATIVE (Negative) Influenza Type B (PCR) NEGATIVE (Negative) RSV RNA Qual (PCR) NEGATIVE (Negative) SARS-CoV-2 RNA (RT-PCR) NEGATIVE (Negative) S. pyogenes GrpA CIPRIANO Negative (Negative) External Record Review External record reviewed: Other (Prior ED visist) Discharge Plan Discharge Clinical Impression: Pharyngitis, URI (upper respiratory infection) Patient Disposition: Home, Self-Care Instructions: Pharyngitis (ED), Upper Respiratory Infection (ED) Additional Instructions: Regrese al servicio de urgencias de inmediato si experimenta babeo, cambio de voz, sensaci?n de ja de la garganta, fiebre, escalofr?os, dolor en el pecho, dificultad para respirar, hinchaz?n del jessica, hinchaz?n de las piernas, tos con arlette, dolor en la pantorrilla, debilidad o cualquier otro s?ntoma preocupante. Prescriptions: New benzonatate 200 mg capsule 200 mg PO TID PRN (Reason: cough) 5 Days Qty: 15 0RF No Action carvedilol 3.125 mg tablet 3.125 mg PO BID Qty: 60 5RF sildenafil 100 mg tablet 100 mg PO ONCE PRN (Reason: sexual activity) 30 Days Qty: 30 1RF Rx Instructions: administer 60 minutes before intended activity epinephrine [EpiPen] 0.3 mg/0.3 mL auto-injector 0.3 mg IM Q4H PRN (Reason: anaphylaxis) Qty: 2 0RF cyclobenzaprine 10 mg tablet 10 mg PO Q8H Qty: 20 0RF oxycodone 5 mg tablet 5 mg PO Q6H PRN (Reason: pain) Qty: 20 0RF Rx Instructions: Partial Fill upon patient request. naproxen 500 mg tablet 500 mg PO BID 30 Days Qty: 60 2RF acetaminophen 500 mg tablet 500 mg PO Q6H 7 Days Qty: 28 0RF amlodipine 10 mg tablet 10 mg PO DAILY 90 Days Qty: 90 3RF lisinopril 20 mg tablet 20 mg PO DAILY 90 Days Qty: 90 1RF triamcinolone acetonide 0.1 % cream 1 appl topical DAILY 15 Days Qty: 30 0RF pantoprazole [Protonix] 40 mg tablet,delayed release (DR/EC) 40 mg PO DAILY 90 Days Qty: 90 1RF terazosin 10 mg capsule 10 mg PO BEDTIME 30 Days Qty: 30 1RF Interventions: ED Discharge Assessment Last Done: 12/24/22 19:07 Discharge Date/Time: 12/24/22 19:07 Print Language: Armenian
[2022-12-24 17:23] LABS: IDNOW Serial# 6674DD1D; Strep A Nucleic Acid Negative (Negative)
[2022-12-24 17:43] LABS: Influenza A PCR NEGATIVE (Negative); Influenza B PCR NEGATIVE (Negative); Resp Syncy Virus RNA Qual PCR NEGATIVE (Negative); SARS COV2 PCR INHOUSE NEGATIVE (Negative)
== END 2022-12-24 19:07 | disposition home or self-care (01) ==
PROVIDERS: Physician Assistant Medical; Emergency Provider Internal Medicine; PCP Physician Assistant
DX: J02.9 Acute pharyngitis, unspecified (principal); J06.9 Acute upper respiratory infection, unspecified; Z20.822 Contact with and (suspected) exposure to COVID-19; Z20.828 Contact with and (suspected) exposure to other viral communicable diseases
CPT/HCPCS: 0241U; 87651; 99282; 99283

== ENCOUNTER 2023-01-03 13:40 | Outpatient (AMB) | payer MEDICARE, SELFPAY ==
[2023-01-03 13:46] VITALS: BP 120/64; O2SAT 94; BMI 36.3
--- NOTE | 2023-01-03 13:46 | MHC.PC.OV ---
Vital Signs 01/03/23 13:46 Height 5 ft 6 in Weight 225 lb 2 oz BMI 36.3 BP 120/64 Blood Pressure Location Lt brachial Position Sitting Pulse Source Pulse Oximeter Pulse Oximetry (%) 94 Oxygen Delivery Method Room Air Intake Visit Reasons: Annual Exam Binder Sorter Required: Yes Binder Sorter Name: [place] Accompanied by: Self / Same As Patient Allergies No Known Allergies Allergy (Verified 01/03/23 14:05) Medication List - Last Reconciled 01/03/23 by Rosales Cervantes PA-C acetaminophen 500 mg PO Q6H 7 days amlodipine 10 mg PO DAILY 90 days carvedilol 3.125 mg PO BID cyclobenzaprine 10 mg PO Q8H lisinopril 20 mg PO DAILY 90 days naproxen 500 mg PO BID 30 days pantoprazole (Protonix) 40 mg PO DAILY 90 days sildenafil 100 mg PO ONCE PRN 30 days terazosin 10 mg PO BEDTIME 30 days triamcinolone acetonide 0.1% 1 appl topical DAILY 15 days Tobacco use date assessed: 11/07/22 Fall risk assessment: No Falls in past year Last assessed Fall Risk: 01/03/23 Dental Screening Dental Screen Date: 01/03/23 Did you have a dental visit in the last 12 months?: Yes Did you have a dental problem in the last 6 months where you did not have access to dental care?: No Was dental information given to patient?: Patient has dentist HPI Annual Exam HPI Details Patient is a 67-year-old male here today for a routine annual physical.? Patient's past medical history significant for hypertension, GERD, lumbar disc disease status post surgery with hardware placement, frequent PVCs. CHRONIC MEDICAL CONDITIONS--> Lumbar disc disease:? Has surgery on his lumbar spine in 2017 while in [facility], he reports there is hardware placement in his lumbar spine.? Also report he continues to have neck and lower back pain to which hew uses a lumbar spine brace. .. Hypertension: Has long standing HTN , has been seen by Cardiology was started on carvedilol for neural hormonal modulation. REports at home his BP reading are --130s over 70s. He denies any headaches, chest discomforts or shortness of breath. He does report some blurred vision and would like to see an eye doctor. ? today's blood pressure in office acceptable. .? .. GERD: Uses PPI therapy with decent effect .. Cardiomyopathy:? Has left ventricular hypertrophy. Echocardiogram done in August of 2019 to showing left ventricular hypertrophy and EF estimated at 49%.? Otherwise patient asymptomatic without any shortness of breath, chest discomfort or syncopal episodes. Vaccine: Up-to-date with COVID vaccine, flu vaccine, needs pneumonia and shingles vaccine. Colon cancer screening: Reports having a colonoscopy in [place] unclear what year. [facility] Medical History PVC (premature ventricular contraction) HTN (hypertension) Surgical History History of lumbar surgery Social History Housing: Apartment Alcohol intake: unknown Patient Tobacco Use Status: Never used Tobacco e-Cigarette/Vaping Use: Never Used Second Hand Smoke Exposure: No service: No Current occupational status: employed Current occupational exposures/hazards: No Cognitive needs: No Hearing needs: No Vision needs: Yes Questionnaire Thrive Questionnaire Date Thrive assessed: 07/03/22 ZOE-7 AMB Questionnaire ZOE-7 Date ZOE - 7 assessed: 07/03/22 Source: Developed by Drs. Erik Fermin, Christi Obregon, Kane Mkie and colleagues, with an educational jailyn from [employer]. Review of Systems Const Denies body aches, Denies chills, Denies excessive sweating, Denies fatigue, Denies fever(s) and Denies headache(s) Eyes Denies blurry vision ENT Denies dysphagia, Denies vertigo, Denies dizziness, Denies headache(s), Denies hearing loss and Denies tinnitus Card Denies chest pain, Denies chest pain with activity, Denies syncope, Denies irregular heart rhythm and Denies dyspnea Resp Denies chest congestion, Denies cough, Denies hemoptysis, Denies dyspnea and Denies wheezing GI Denies abdominal pain, Denies melena, Denies hematochezia, Denies coffee ground emesis, Denies dysphagia, Denies diarrhea, Denies nausea and Denies vomiting Denies difficulty urinating, Denies dysuria, Denies urinary frequency, Denies urinary hesitancy and Denies urinary urgency Musc Denies arthralgias, Denies limited range of motion, Denies muscle cramps and Denies muscle weakness Skin/Breast Denies rash and Denies skin ulcer Neuro Denies Abnormal speech present, Denies confusion, Denies vertigo, Denies dizziness, Denies syncope, Denies headache(s), Denies memory loss and Denies seizure-like activity Psych Denies anxiety, Denies confusion, Denies depression, Denies memory loss, Denies panic attacks and Denies paranoia Endo Denies excessive sweating, Denies fatigue, Denies flushing, Denies polydipsia and Denies polyuria Aller/Immun Denies wheezing Physical exam (Primary Care) Vital Signs: Last Vital Signs BP 120/64 01/03/23 13:46 Pulse Ox 94 01/03/23 13:46 Oxygen Delivery Method Room Air 01/03/23 13:46 BMI result Body Mass Index 36.3 BMI Assessment/Plan discussion: High Tobacco/Smoking Status: Tobacco use Status Tobacco use date assessed 11/07/22 01/03/23 13:49 Patient Tobacco Use Status Never used Tobacco 01/03/23 13:49 e-Cigarette/Vaping Use Never Used 01/03/23 13:49 Thrive Assessment: Date of Thrive Assessment Date Thrive assessed 07/03/22 01/03/23 13:49 Const Other: Obese General: cooperative, comfortable, no acute distress, alert and awake; No confusion Orientation/consciousness: oriented to person, oriented to place, patient oriented x3 and No confusion HENMT Head: Yes normocephalic Ears: external ears normal and TM's normal bilaterally Face and sinus: No sinus tenderness Mouth: Normal oral and palatal mucosa present and tongue normal Teeth and gingiva: dentition normal and gingiva normal Throat: Yes posterior oropharynx normal, Yes tonsils normal and Yes uvula midline Eyes Conjunctivae: conjunctivae normal Sclerae: sclerae normal Pupils: Equal, round and reactive pupils present EOM: EOMs intact bilaterally Direct Ophthalmoscopy: No no photophobia Neck Neck: Yes no lymphadenopathy, No tender and Yes no JVD Thyroid: Thyroid normal Carotids: no bruits Chest Chest palpation & inspection: no tenderness Resp Effort & Inspection: normal respiratory effort, no audible wheezes, not labored and no stridor Auscultation: no crackles, no rales, no rhonchi and no wheezes Cardio Jugular venous distension: no JVD Rate: regular rate, not bradycardic and not tachycardic Rhythm: regular rhythm Bruits: no carotid bruits Peripheral pulses: Peripheral pulses 2+ throughout GI Inspection: Yes normal to inspection, No abdominal wall ecchymosis and No visible herniation Palpation (GI): Soft to palpation, nontender, no guarding, not rigid and No hepatosplenomegaly present Auscultation: normoactive bowel sounds General: Yes no CVA tenderness Back/Spine/Pelvis Back: no CVA tenderness and No back tenderness Cervical Spine: cervical ROM normal Thoracic/Lumbar Spine: thoracic and lumbar spine normal to inspection, straight leg raise negative bilaterally, No thoraco-lumbar ROM limited and No lumbar spinal tenderness Skin Lesions: no lesions Rashes: no rashes Wounds: no wounds Neuro General: oriented to person, oriented to place, patient oriented x3, CN's II-XI intact bilaterally and No confusion Cranial nerves: Yes Equal, round and reactive pupils present and Yes Normal accommodation reflex present Cognition (Neuro): normal cognition Speech: No Abnormal speech present Gait exam (Neuro): Normal gait present Motor exam (neuro): 5/5 motor strength present throughout Extrem Right upper extremity: full ROM; no cyanosis Left upper extremity: full ROM; no cyanosis Right lower extremity: no edema Left lower extremity: no edema Psych Appearance: grossly normal Mental Status: mental status grossly normal Affect: normal affect Attitude: cooperative Thought process: Normal thought process present Office Procedures Flu Questionnaire Does the patient have a severe egg allergy?: No Does the patient have severe life threatening allergies?: No Does the patient have a fever or illness today?: No Has the patient ever had Guillain-Durham Syndrome?: No Has the patient ever had any past reaction to a flu shot?: No Immunizations flu vacc [id number] 6mos up(PF) 60 mcg(15 mcgx4)/0.5 mL IM syringe Performing Provider: Rosales Cervantes PA-C Performing Location: [facility] Administered by: ANNE Meier on 01/03/23 14:37 Dose Route Admin Location Dispensed Lot Number Expiration Date NDC Wharf Tender Helper 0.5 mL IM Left Deltoid 0.5 mL [id number] 08/25/23 [id number] [employer] VIS Given Date VIS Provided VIS Publication Date 01/03/23 Single Vaccine 20 Eligibility Eligibility Date Funding Source Not VFC Eligible 01/03/23 Private pneumoc 20-demetrice conj-dip cr(PF) 0.5 mL IM syringe Performing Provider: Rosales Cervantes PA-C Performing Location: [facility] Administered by: ANNE Meier on 01/03/23 14:36 Dose Route Admin Location Dispensed Lot Number Expiration Date NDC Wharf Tender Helper 0.5 mL IM Right Deltoid 0.5 mL [id number] 12/26/23 [employer] VIS Given Date VIS Provided VIS Publication Date 01/03/23 Single Vaccine 21 Eligibility Eligibility Date Funding Source Not VFC Eligible 01/03/23 Private Assessment and Plan Assessment & Plan (1) Annual physical exam: Code(s): Z00.00 - Encounter for general adult medical examination without abnormal findings (2) HTN (hypertension): Code(s): I10 - Essential (primary) hypertension Qualifiers: Hypertension type: primary hypertension Qualified Code(s): I10 - Essential (primary) hypertension Plan: Patient's blood pressure acceptable today in office. Will continue his current dose of antihypertensive medication with goal blood pressure to be below 140/90 (3) Cardiomyopathy: Code(s): I42.9 - Cardiomyopathy, unspecified Qualifiers: Cardiomyopathy type: unspecified Qualified Code(s): I42.9 - Cardiomyopathy, unspecified Plan: Patient followed Cardiology, does have cardiomyopathy, most recent echocardiogram showing severe left ventricular hypertrophy, EF at 49% No overt signs of Congestive heart failure. (4) GERD (gastroesophageal reflux disease): Code(s): K21.9 - Gastro-esophageal reflux disease without esophagitis Qualifiers: Esophagitis presence: without esophagitis Qualified Code(s): K21.9 - Gastro-esophageal reflux disease without esophagitis Plan: Patient's GERD symptoms have been stable current dose of pantoprazole. Advised to stay way from gastric irritants and NSAID use. (5) Obese: Code(s): E66.9 - Obesity, unspecified Qualifiers: Body mass index: BMI 36.0-36.9 Obesity classification: adult class 2 (BMI 35 - 39.9) Obesity type: due to excess calories Serious obesity comorbidity presence: with serious comorbidity Qualified Code(s): E66.01 - Morbid (severe) obesity due to excess calories; Z68.36 - Body mass index [BMI] 36.0-36.9, adult Plan: Patient does understand his BMI is over 30 and will work on being more physically active and adapting to better eating habits to reduce his (6) Colon cancer screening: Code(s): Z12.11 - Encounter for screening for malignant neoplasm of colon Plan: Willing to do colonoscopy (7) DIMITRIS (obstructive sleep apnea): Code(s): G47.33 - Obstructive sleep apnea (adult) (pediatric) Plan: He reports he has a history of obstructive sleep apnea and was using his CPAP machine many years ago. Has lost his machine. Will set him up with a home sleep study to evaluate for obstructive sleep apnea and consider restarting CPAP therapy. Orders: Orders RT home sleep study 01/03/23 G47.33 - Obstructive sleep apnea (adult) (pediatric) Pneumococcal 20 Immunization 01/03/23 Z23 - Encounter for immunization, G47.33 - Obstructive sleep apnea (adult) (pediatric) Influenza [id number] Immunization 01/03/23 Z23 - Encounter for immunization Referrals Gastroenterology Referral Z12.11 - Encounter for screening for malignant neoplasm of colon Medications: Refilled naproxen 500 mg PO BID 60 tabs 2RF 30 days M54.50 - Low back pain, unspecified carvedilol 3.125 mg PO BID 60 tabs 5RF I49.3 - Ventricular premature depolarization lisinopril 20 mg PO DAILY 90 tabs 1RF 90 days I10 - Essential (primary) hypertension sildenafil administer 60 minutes before intended activity 100 mg PO ONCE PRN 30 tabs 1RF sexual activity 30 days N52.8 - Other male erectile dysfunction, N52.9 - Male erectile dysfunction, unspecified Coding Level of Care Code Est Pt Prev Care >65y(93135) Diagnoses Annual physical exam Z00.00 Primary hypertension I10 Hypertension type: primary hypertension Cardiomyopathy, unspecified type I42.9 Cardiomyopathy type: unspecified Gastroesophageal reflux disease without esophagitis K21.9 Esophagitis presence: without esophagitis Class 2 severe obesity due to excess calories with serious comorbidity and body mass index (BMI) of 36.0 to 36.9 in adult E66.01; Z68.36 Body mass index: BMI 36.0-36.9 Obesity classification: adult class 2 (BMI 35 - 39.9) Obesity type: due to excess calories Serious obesity comorbidity presence: with serious comorbidity Colon cancer screening Z12.11 DIMITRIS (obstructive sleep apnea) G47.33
== END 2023-01-03 14:35 | disposition home or self-care (01) ==
PROVIDERS: Visit Provider Physician Assistant
DX: Z00.00 Encounter for general adult medical examination without abnormal findings (principal); I42.9 Cardiomyopathy, unspecified; E66.01 Morbid (severe) obesity due to excess calories; Z23 Encounter for immunization; I10 Essential (primary) hypertension; K21.9 Gastro-esophageal reflux disease without esophagitis; Z68.36 Body mass index [BMI] 36.0-36.9, adult; G47.33 Obstructive sleep apnea (adult) (pediatric)
CPT/HCPCS: 90471; 90677; 90686; 99397

== ENCOUNTER 2023-01-23 09:56 | Outpatient (AMB) | payer MEDICARE, MEDICAID, SELFPAY ==
--- NOTE | 2023-01-23 10:09 | A.OFFVIS_ITS ---
Intake Intake Visit Reasons: 2m/cysto Intake Note: Patient presents today for a CYSTOSCOPY Procedure: Meds: None Allergies to Antibiotic: No Known Allergies Blood Thinner: None Urinalysis test clear for Cysto? Disposable Uro-G Cystoscope Cannula: Lot: [id number] Exp: 07/08/2024 Automatic Mounter Required: Yes Automatic Mounter Language: Hungarian Information Interpreted: non-clinical & clinical Marriage And Family Therapist: Marriage And Family Therapist Present Accompanied by: Self / Same As Patient Allergies No Known Allergies Allergy (Verified 01/23/23 11:24) Medication List - Last Reconciled 01/23/23 by Ford Collier MD acetaminophen 500 mg PO Q6H 7 days amlodipine 10 mg PO DAILY 90 days carvedilol 3.125 mg PO BID cyclobenzaprine 10 mg PO Q8H cyclobenzaprine 5 mg PO TID PRN lidocaine 5% 1 patch topical DAILY lisinopril 20 mg PO DAILY 90 days naproxen 500 mg PO BID 30 days pantoprazole (Protonix) 40 mg PO DAILY 90 days sildenafil 100 mg PO ONCE PRN 30 days terazosin 10 mg PO BEDTIME 90 days triamcinolone acetonide 0.1% 1 appl topical DAILY 15 days HPI HPI Comments History of Present Illness Details Kofi is a Hungarian-speaking male. He is a patient of Dr. Cervantes. He seen for the following urologic conditions - erectile dysfunction - lower urinary tract symptoms Hungarian translation provided in office by qualified medical record consultant Terazosin 10 mg has been effective Cystoscopy - open bladder neck Lower urinary tract symptoms Switched to terazosin PSA 06/17 0.6 Imaging 05/16 CT scan mildly thickened bladder wa ll Cystoscopy - open bladder neck, mild trabeculation Erectile dysfunction Good response to 100 mg sildenafil PFSH Medical History (Updated 01/23/23 @ 14:18 by Sarai Sage NP) PVC (premature ventricular contraction) HTN (hypertension) Surgical History (Updated 01/23/23 @ 10:26 by Zuleica Shaw, RMA) Hx of cystoscopy History of lumbar surgery Social History Housing: Apartment Alcohol intake: unknown Patient Tobacco Use Status: Never used Tobacco Smoked in Last 30 Days: No e-Cigarette/Vaping Use: Never Used Second Hand Smoke Exposure: No Use of substances other than those prescribed or required for medical reasons: No Advance Directives: No Advance Directives Information Provided: No service: No Current occupational status: employed Current occupational exposures/hazards: No Cognitive needs: No Hearing needs: No Vision needs: Yes Review of Systems Const Denies chills and Denies fever(s) Card Reports no additional complaints and Denies syncope Resp Denies cough GI Denies abdominal pain and Denies heartburn Reports as per HPI and Denies change in libido Neuro Denies syncope Psych Denies change in libido Endo Denies change in libido Physical Exam Const General: cooperative, healthy appearing, comfortable and no acute distress Orientation/consciousness: patient oriented x3 HEENT Face and sinus: Yes normal facial exam Mouth: moist mucous membranes Neck Neck: Yes normal visual inspection, Yes full ROM and Yes trachea midline Chest Chest palpation & inspection: normal inspection of the chest Resp Effort & Inspection: normal respiratory effort, able to speak in complete senten itz and no respiratory distress GI Inspection: Yes normal to inspection Back/Spine/Pelvis Cervical Spine: normal cervical lordosis Thoracic/Lumbar Spine: thoracic and lumbar spine normal to inspection Skin General skin exam: no rashes or lesions noted Neuro General: patient oriented x3, gait normal, tone normal and moves all extremities Extrem General: Yes normal to inspection and Yes capillary refill normal Office Procedures Cystoscopy Consent Discussed risk and benefit or proposed procedure with the patient. Information consent for procedure given to the patient. Discussed technical aspects, risks, benefits and alternatives in full. Addressed all of the patient's questions and concerns regarding the procedure. The patient demonstrated knowledge and understanding. They wish to proceed with this procedure. Preparation The patient was prepped in the usual manner. A gis developer was present and in the room. Genitalia was prepped with betadine solution in a sterile manner. Lid ocaine Jelly 2% was placed into the urethra and 16Fr flexible Olympus cystoscope was inserted into the meatus after adequate lubrication. Procedure Meatus circumcised Urethra anterior posterior urethra normal Prostatic Urethra unremarkable Bladder examination with retroflexion of cystoscope Bladder Orifices normal shape and position Bladder Capacity medium Trabeculations grade 1 Cellule Formation - Diverticulum Formation - Mucosal Erythema - Bladder Tumor - [id number] DISPOSABLE SCOPE URO-G FLEXIBLE SCOPE Procedure code (CPT) selection complete Office Meds lidocaine HCl 2 % mucosal jelly in applicator Performing Provider: Ford Collier MD Performing Location: [facility] Administered by: Ellie Valero RN on 01/23/23 10:26 Dose Route Admin Location Dispensed Lot Number Expiration Date NDC Oil Burner Mechanic 10 mL intra-urethral 10 mL nitrofurantoin monohydrate/macrocrystals 100 mg capsule Performing Provider: Ford Collier MD Performing Location: [facility] Administered by: Ellie Valero RN on 01/23/23 10:26 Dose Route Admin Location Dispensed Lot Number Expiration Date NDC Oil Burner Mechanic 100 mg PO 1 cap naproxen 500 mg tablet Performing Provider: Ford Collier MD Performing Location: [facility] Administered by: Ellie Valero RN on 01/23/23 10:26 Dose Route Admin Location Dispensed Lot Number Expiration Date NDC Oil Burner Mechanic 500 mg PO 1 tab Results AMB Urinalysis, Automated UA Leukoctes 15 Darrick/uL Last Edit by MORGAN Campuzano on 01/23/23 10:39 UA Nitrite Negative Last Edit by MORGAN Campuzano on 01/23/23 10:39 UA Urobilinogen 0.2 mg/dL Last Edit by MORGAN Campuzano on 01/23/23 10:3 9 UA Protein 30 mg/dL Last Edit by MORGAN Campuzano on 01/23/23 10:39 1+ Nacho Squires 01/23/23 10:39 UA pH 5.5 Last Edit by MORGAN Campuzano on 01/23/23 10:39 UA Blood 25 Karl/uL Last Edit by MORGAN Campuzano on 01/23/23 10:39 1+ Nacho Squires 01/23/23 10:39 UA Specific [place] 1.025 Last Edit by MORGAN Campuzano on 01/23/23 10: 39 UA Ketone Negative Last Edit by MORGAN Campuzano on 01/23/23 10:39 UA Bilirubin 2 mg/dL Last Edit by MORGAN Campuzano on 01/23/23 10:39 2+ Nacho Squires 01/23/23 10:39 UA Glucose 0 mg/dL Last Edit by MORGAN Campuzano on 01/23/23 10:39 Results Reviewed Results Reviewed: Laboratory Last Values Urine pH (Auto) 5.5 01/23/23 10:36 Specific [place] (Auto) 1.025 01/23/23 10:36 Urine Protein (Auto) 30 mg/dL 01/23/23 10:36 Glucose (UA)(Auto) 0 mg/dL 01/23/23 10:36 Urine Ketones (Auto) Negative 01/23/23 10:36 Urine Blood (Auto) 25 Karl/uL 01/23/23 10:36 Urine Nitrite (Auto) Negative 01/23/23 10:36 Urine Bilirubin (Auto) 2 mg/dL 01/23/23 10:36 Urine Urobilinogen (Auto) 0.2 mg/dL 01/23/23 10:36 Leukocyte Esterase (Auto) 15 Darrick/uL 01/23/23 10:36 Assessment & Plan Assessment & Plan (1) BPH associated with nocturia: Code(s): N40.1 - Benign prostatic hyperplasia with lower urinary tract symptoms; R35.1 - Nocturia (2) Erectile dysfunction: Code(s): N52.9 - Male erectile dysfunction, unspecified Qualifiers: Erectile dysfunction type: due to other cause Qualified Code(s): N52.8 - Other male erectile dysfunction Plan Six month follow-up Orders: Orders AMB Cystoscopy Today N40.1 - Benign prostatic hyperplasia with lower urinary tract symptoms, R35.1 - Nocturia AMB Urinalysis Automated Today Z13.9 - Encounter for screening, unspecified Patient Instructions: Imaging studies, laboratory and physical exam results were discussed and reviewed in detail. No major barriers to patient understanding were identified. An opportunity to ask questions regarding the treatment plan was provided. All questions were answered. The patient expressed understanding and agreement with the above treatment plan. The patient is aware they should contact our office by phone for worsening of their current condition or the appearance of new urologic symptoms. Compliance is encouraged with any medications and followup testing that is ordered. It is a privilege to participate in the urologic care of your patient. If you have any questions or concerns regarding treatment for the above conditions, or other urologic issues, please do not hesitate to contact me. The office telephone contact is [phone]. This note is constructed using voice recognition software. While every effort has been made to ensure accuracy nurse behavioral health care errors may have been included. Yours sincerely, Dr Ford Collier MD, [facility] Urology Providers of Expert, Compassionate Care for the Genitourinary System Coding Level of Care Code Est Pt Level 3 (23177) Diagnoses BPH associated with nocturia N40.1; R35.1 Other male erectile dysfunction N52.8 Erectile dysfunction type: due to other cause CPT Codes Cystoscopy - CPT: 31133-[id number] ([id number])
== END 2023-01-23 10:46 | disposition home or self-care (01) ==
PROVIDERS: PCP Physician Assistant; Visit Provider Urology
DX: N40.1 Benign prostatic hyperplasia with lower urinary tract symptoms (principal); R35.1 Nocturia; N52.8 Other male erectile dysfunction; Z13.9 Encounter for screening, unspecified
CPT/HCPCS: 52000

== ENCOUNTER 2023-01-23 11:19 | Emergency (ER) | payer MEDICARE, OTHER, SELFPAY ==
--- NOTE | ~2023-01-23 | XR_ITS ---
EXAMINATION: XR LUMBOSACRAL SPINE CLINICAL INFORMATION: Back pain. COMPARISON: Lumbar spine radiographs dated 08/05/[address] abdomen/pelvis. TECHNIQUE: Three views of the lumbosacral spine. FINDINGS: Posterior laminectomy and posterior stabilization hardware at L4 through S1. Intervertebral disc hardware at L4-L5. No hardware fracture or perihardware lucency to suggest loosening or infection. Normal vertebral body alignment. The lumbar lordosis is maintained. No loss of vertebral body height. Mild multilevel loss of intervertebral disc with endplate osteophytes, unchanged. No abnormal soft tissue calcification. XR/XR lumbar spine 2-3V IMPRESSION: 1. Posterior stabilization hardware at L4 through S1 without evidence of complication. 2. Mild multilevel degenerative disc disease, unchanged.
--- NOTE | ~2023-01-23 | CT_ITS ---
EXAMINATION: CT ABDOMEN AND PELVIS WITHOUT CONTRAST CLINICAL INFORMATION: Right costovertebral angle tenderness COMPARISON: None available. TECHNIQUE: Multidetector volumetric imaging was performed from the superior aspect of the liver through the pubic symphysis. Sagittal and coronal reformatted images were obtained on the technologist's workstation. This CT examination was performed using dose optimization techniques as appropriate, variously including the following: *Automated exposure control *Adjustment of mA and/or kV according to patient size (this includes techniques or standardized protocols for targeted exams where dose is matched to indication/reason for exam; i.e. extremities or head) *Use of iterative reconstruction technique DLP: 740 mGy-cm FINDINGS: LUNG BASES: The visualized lung bases are unremarkable. LIVER, GALLBLADDER, AND BILIARY TREE: The liver is normal in size, shape, and attenuation. No focal hepatic lesion or biliary ductal dilatation is present. Status post cholecystectomy. PANCREAS: Unremarkable. SPLEEN: Unremarkable. ADRENAL GLANDS: Unremarkable. KIDNEYS AND URETERS: Interpolar nephrolith of the right kidney with an adjacent cortical scar. Minimal cortical cyst of the left kidney at 5 mm for which no further follow-up recommended. Interpolar hyperdensity of left kidney series 2 image 37 at 68 Hounsfield units and 10 mm, potentially reflecting a hyperdense cyst. No evidence for obstructive uropathy. BLADDER: No ureteral stones. Small gas bubble in the urinary bladder potentially related to a recent catheterization. Wall thickening and small paravesical infiltrative change suggestive of cystitis. GASTROINTESTINAL TRACT: Distal ileum and visualized appendix unremarkable. No small bowel obstructive process or abnormal omental thickening. No appreciable colonic inflammation. ABDOMINAL WALL: Small fatty umbilical hernia. Small fatty inguinal hernias, right greater than left LYMPH NODES: No suspiciously enlarged adenopathy. VASCULAR: Small atherosclerotic changes. PELVIC VISCERA: No suspicious pelvic masses. OSSEOUS STRUCTURES: Post fusion changes L4-S1 with disc spacer L4-L5. Sclerotic focus in the left pedicle of L1 likely reflecting a bone island. Spondylitic changes. CT/CT abdomen pelvis wo IV con IMPRESSION: No CT evidence for obstructive uropathy. Stone of the right kidney with an adjacent cortical scar. Interpolar hyperdensity of left kidney may reflect a hyperdense cyst. Sonography as an outpatient when feasible may be helpful toward further clarification. Wall thickening of the bladder with small paravesical infiltrative changes, suggestive of cystitis in the appropriate clinical circumstances. Other incidental findings as noted above. Fleischner guidelines were followed.
[2023-01-23 11:24] VITALS: PULSE 75; RESP 17; TEMP 36.6; O2SAT 98; BMI 35.9
--- NOTE | 2023-01-23 11:24 | ED.BACK ---
HPI - Back Pain/Injury General Chief Complaint: Back Pain/Injury Stated Complaint: Back pain Time Seen by Provider: 01/23/23 11:41 Source: patient Mode of arrival: ambulatory Limitations: no limitations History of Present Illness HPI Narrative: Patient is a 67-year-old male with history of hypertension, BPH presenting to the emergency department with complaint of low back pain as well as right flank pain for the past 3 days. He does report some difficulty urinating. Denies dysuria, hematuria, fevers. Patient was seen at Dr. Collier's office this morning for a cystoscopy. States that when he mentioned his flank pain to Dr. Collier he was advised to come to the ED. denies any nausea, vomiting, diarrhea. Denies any fall or other trauma. Denies any radiation of pain to lower extremities. Denies any saddle anesthesia or bowel or bladder incontinence. Has not taken any [id number] medications for his discomfort but states that he was given naproxen at Dr. Collier's office earlier today prior to cystoscopy. MD elicited complaint: back pain Pertinent past history: prior back pain Onset (ago): day(s) Timing: constant Severity: severe Quality: aching Location: lumbar spine and right flank Radiation: none Exacerbating factors: none Relieving factors: none Associated symptoms: denies other symptoms Treatments prior to arrival: NSAIDS Work related injury: No Related Data Previous Rx's Medication Instructions Recorded acetaminophen 500 mg tablet 500 mg PO Q6H fever 7 days #28 tabs 07/03/22 amlodipine 10 mg tablet 10 mg PO DAILY 90 days #90 tabs 07/03/22 triamcinolone acetonide 0.1 % 1 appl topical DAILY 15 days #30 07/03/22 topical cream grams cyclobenzaprine 10 mg tablet 10 mg PO Q8H #20 tabs 08/06/22 pantoprazole 40 mg tablet,delayed 40 mg PO DAILY 90 days #90 tabs 11/07/22 release (Protonix) terazosin 10 mg capsule 10 mg PO BEDTIME 30 days #30 caps 11/07/22 carvedilol 3.125 mg tablet 3.125 mg PO BID #60 tabs 01/03/23 lisinopril 20 mg tablet 20 mg PO DAILY 90 days #90 tabs 01/03/23 naproxen 500 mg tablet 500 mg PO BID 30 days #60 tabs 01/03/23 sildenafil 100 mg tablet 100 mg PO ONCE PRN sexual activity 01/03/23 30 days #30 tabs cyclobenzaprine 5 mg tablet 5 mg PO TID PRN muscle spasm #10 01/23/23 tabs lidocaine 5 % topical patch 1 patch topical DAILY #15 ea 01/23/23 Allergies Allergy/AdvReac Type Severity Reaction Status Date / Time No Known Allergies Allergy Verified 01/23/23 11:24 Review of Systems Review of Systems: As per HPI. Yes all other systems are reviewed and are negative Constitutional: Constitutional: Reports as per HPI [facility] Past Medical History Medical History (Updated 01/23/23 @ 14:18 by Sarai Sage NP) PVC (premature ventricular contraction) HTN (hypertension) Surgical History (Updated 01/23/23 @ 10:26 by MORGAN Campuzano) Hx of cystoscopy History of lumbar surgery Social History Social History Housing: Apartment Alcohol intake: unknown Patient Tobacco Use Status: Never used Tobacco Smoked in Last 30 Days: No e-Cigarette/Vaping Use: Never Used Second Hand Smoke Exposure: No Use of substances other than those prescribed or required for medical reasons: No Advance Directives: No Advance Directives Information Provided: No service: No Current occupational status: employed Current occupational exposures/hazards: No Cognitive needs: No Hearing needs: No Vision needs: Yes Physical Exam Vital Signs: Vital Signs: Last Vital Signs Temp 98 F 01/23/23 11:24 Pulse 73 01/23/23 12:18 Resp 16 01/23/23 12:18 BP 120/87 01/23/23 12:18 Pulse Ox 94 01/23/23 12:18 O2 Del Method Room Air 01/23/23 12:18 BMI result Body Mass Index 35.9 Vital signs have been reviewed and appear to be correct. Blood pressure normal. Heart rate normal. Respiratory rate normal. Temperature normal. Oxygen saturation normal. Const: General: cooperative, healthy appearing and no acute distress Orientation/consciousness: oriented to person, oriented to place, oriented to time and patient oriented x3 Limitations: no limitations HEENT: Head: Yes normocephalic and Yes atraumatic Ears: external ears normal General nose exam: Normal external nose present Face and sinus: Yes face symmetric Mouth: oropharynx normal and moist mucous membranes Throat: Yes uvula midline Eyes: Pupils: Equal, round and reactive pupils present Neck: Neck: Yes normal visual inspection and Yes supple Resp: Effort & Inspection: normal respiratory effort and able to speak in complete sentences Auscultation: clear to auscultation bilaterally Cardio: Rate: regular rate Rhythm: regular rhythm Heart sounds: S1 normal heart sound present and S2 normal heart sound present GI: Palpation (GI): Soft to palpation and nontender Auscultation: normoactive bowel sounds : General: Yes CVA tenderness on the right Back/Spine/Pelvis: Back: CVA tenderness Cervical Spine: normal cervical lordosis, cervical ROM normal, No Cervical spine tenderness and No step off deformity Thoracic/Lumbar Spine: thoracic and lumbar spine normal to inspection, thoraco-lumbar ROM normal, straight leg raise negative bilaterally, No thoracic spinal tenderness and lumbar spinal tenderness at L3, at L4 and at L5 Pelvis: no pain with anterior-posterior compression and no pain with lateral compression Skin: General skin exam: elasticity normal and turgor normal Neuro: General: oriented to person, oriented to place, oriented to time, patient oriented x3, moves all extremities, no focal motor deficits and CN's II-XI intact bilaterally Cranial nerves: Yes Equal, round and reactive pupils present Cognition (Neuro): normal cognition Motor exam (neuro): 5/5 motor strength present throughout Sensory Exam: Normal double simultaneous stimulation for sensation Extrem: General: Yes full ROM, Yes no pedal edema and Yes no calf tenderness Psych: Mental Status: mental status grossly normal Affect: normal affect Thought process: Normal thought process present Course Course Course Narrative: This is an RME: Additional HPI, ROS, PE not included below will be deferred to primary provider. This is a [id number], with a hx of PVC, HTN, lumbar surgery on L1 & L5 10 years ago, presenting to the emergency department with a complaint of back pain x 3 days. No urinary symptoms. No saddle anethesias. No red flag back sxs. TTP over lumbar spine and right lumbar paraspinous muscles. Plan: Lumbar xray ordered Medications Administered Discontinued Medications Generic Name Dose Route Start Last Admin Trade Name Freq PRN Reason Stop Dose Admin Acetaminophen 975 mg 01/23/23 12:07 01/23/23 12:13 Acetaminophen 325 Mg Tablet PO 01/23/23 12:08 975 mg ONCE ONE Administration Medical Decision Making Medical Decision Making [facility] Narrative: Patient is a 67-year-old male with history of hypertension, BPH presenting to the emergency department with complaint of low back pain as well as right flank pain for the past 3 days. On exam patient is awake, A+Ox3, VS WNL, afebrile, normal neurological exam without focal deficits, physical exam findings as above. Given reported symptoms and physical exam findings, initial differential includes UTI/pyelonephritis, renal/ureteral calculi, lumbar strain, lumbar radiculopathy, degenerative disease, spondylolisthesis. Labs notable for no leukocytosis, no anemia, no evidence of DEWEY. UA notable for 2+ blood likely related to cystoscopy this morning, trace leukocytes, negative nitrates, no bacteria, do not suspect UTI/pyelonephritis. X-ray notable for multilevel degenerative disease. CT notable for no evidence obstructive uropathy. Hyper density of left kidney which may represent cyst, results discussed with patient and advised patient to follow-up with Dr. Caceres outpatient for further evaluation of this finding. My interpretation is in agreement with the radiologist's interpretation. Will treat patient for lumbar strain at this time with cyclobenzaprine, lidocaine patches, advised patient to alternate Tylenol and ibuprofen. Instructed patient to contact Dr. Collier for follow-up appointment. Instructed patient to follow-up with primary care provider as well. Return precautions discussed at bedside. Patient verbalized understanding of and agreement with plan. Differential Diagnosis Differential Diagnoses: The differential diagnosis associated with the presentation includes As per [facility]. Admission/Observation Consideration of admission/observation: Escalation of care including admission/observation considered Lab Data [facility] Lab Attestation statement: I reviewed the patient's lab results. As per [facility] 01/23/23 12:18 01/23/23 12:18 Labs: Lab Results 01/23/23 01/23/23 Range/Units 12:18 13:17 WBC 8.9 (4.8-10.8) X10*3/uL RBC 5.49 (4.60-5.80) X10*6/uL Hgb 16.5 (14.0-18.0) g/dl Hct 48.9 (42.0-52.0) % MCV 89.1 (80.0-98.0) fL MCH 30.1 (27.0-33.0) pg MCHC 33.7 (31.0-36.0) g/dl RDW 12.1 (11.0-16.0) % Plt Count 178 (160-400) X10*3/uL MPV 10.2 (9.4-12.4) fL Immature Gran % (Auto) 0.1 (0.0-0.4) % Neut % (Auto) 52.4 (45-73) % Lymph % (Auto) 37.1 (20-40) % [place] % (Auto) 8.9 (2-11) % Eos % (Auto) 1.3 (0-4) % Baso % (Auto) 0.2 (0-2) % Lymph # (Auto) 3.3 (1.2-4.9) X10*3/uL [place] # (Auto) 0.8 (0.1-1.2) X10*3/uL Eos # (Auto) 0.1 (0.0-0.4) X10*3/uL Baso # (Auto) 0.0 (0.0-0.2) X10*3/uL Abs Immat Gran (auto) 0.01 (0.00-0.03) X10*3/uL Absolute Neuts (auto) 4.7 (2.0-8.3) x10*3/uL Absolute Nucleated RBC 0.000 (0.0-0.012) X10*3/uL Nucleated RBC % (auto) 0.0 (0.0-0.2) /100WBC Sodium 138 (135-145) mmol/L Potassium 3.6 (3.3-5.1) mmol/L Chloride 104 (96-108) mmol/L Carbon Dioxide 30 H (22-29) mmol/L Anion Gap 8 L (12-20) BUN 13 (9-16) mg/dL Creatinine 0.79 (0.5-1.4) mg/dL Estim Creat Clear Calc 102.3 Estimated GFR > 60 Random Glucose 86 (60-115) mg/dL Calcium 9.2 (8.4-10.2) mg/dL Urine Color Dark Yellow Urine Appearance Clear Urine pH 5.5 (5.0-9.0) Ur Specific [place] >= 1.030 H (1.005-1.025) Urine Protein Trace (Neg-Trace) mg/dL Urine Glucose (UA) Negative (Negative) mg/dL Urine Ketones Trace (Negative) mg/dL Urine Blood Moderate (2+) H (Negative) Urine Nitrite Negative (Negative) Ur Leukocyte Esterase Trace H (Negative) Urine RBC >20 H (0-2) /HPF Urine WBC 6-10 H (0-5) /HPF Ur Squamous Epith Cells 0-2 (0-2) /HPF Urine Bacteria None Seen (None Seen) Hyaline Casts 0-2 (0-2) /LPF Independent Interpretation I performed an independent interpretation of an: Plain X-Ray and CT Scan Interpretation: Lumbar xray shows multilevel DDD No evidence of obstructive uropathy on CT Radiology Impression Discussion of test interpretation with radiology: I have reviewed the radiologist's reading. Radiologist Impression: XR/XR lumbar spine 2-3V IMPRESSION: 1. Posterior stabilization hardware at L4 through S1 without evidence of complication. 2. Mild multilevel degenerative disc disease, unchanged. CT/CT abdomen pelvis wo IV con IMPRESSION: No CT evidence for obstructive uropathy. Stone of the right kidney with an adjacent cortical scar. Interpolar hyperdensity of left kidney may reflect a hyperdense cyst. Sonography as an outpatient when feasible may be helpful toward further clarification. Wall thickening of the bladder with small paravesical infiltrative changes, suggestive of cystitis in the appropriate clinical circumstances. Other incidental findings as noted above. Fleischner guidelines were followed. External Record Review External record reviewed: Inpatient record, Office record and Outpatient record Prescription Management I considered prescription management with: Pain Medication and Other Discharge Plan Discharge Clinical Impression: Lumbar strain, Strain of mid-back Patient Disposition: Home, Self-Care Instructions: Low Back Strain (ED), Acute Low Back Pain (ED), Back Pain (ED) Additional Instructions: You were evaluated in the emergency department today for back pain. Your evaluation did not show signs of medical conditions requiring emergent intervention at this time. We recommended that you use ibuprofen or Tylenol per package directions every 6 hours as needed for pain. If necessary, you can alternate these medications so that you take one medication every 3 hours. For instance, at noon take ibuprofen, then at 3:00 p.m. take Tylenol, then at 6:00 p.m. take ibuprofen. You have been prescribed a muscle relaxer which you may take every 8 hours as needed for spasms. You have been prescribed 5% topical lidocaine patches which you can wear for up to 12 hours in a 24 hour period. Do not apply heat directly over the patches. Please schedule an appointment for follow-up with your primary care physician this week for further evaluation of your symptoms. Return to the emergency department if you experience worsening back pain, difficulty walking, fevers, numbness, tingling, incontinence, groin numbness or tingling, or any other concerning symptoms. Prescriptions: New cyclobenzaprine 5 mg tablet 5 mg PO TID PRN (Reason: muscle spasm) Qty: 10 0RF lidocaine 5 % adhesive patch,medicated 1 patch topical DAILY Qty: 15 0RF Rx Instructions: leave on most painful area for up to 12 hrs No Action cyclobenzaprine 10 mg tablet 10 mg PO Q8H Qty: 20 0RF acetaminophen 500 mg tablet 500 mg PO Q6H 7 Days Qty: 28 0RF amlodipine 10 mg tablet 10 mg PO DAILY 90 Days Qty: 90 3RF triamcinolone acetonide 0.1 % cream 1 appl topical DAILY 15 Days Qty: 30 0RF lisinopril 20 mg tablet 20 mg PO DAILY 90 Days Qty: 90 1RF naproxen 500 mg tablet 500 mg PO BID 30 Days Qty: 60 2RF sildenafil 100 mg tablet 100 mg PO ONCE PRN (Reason: sexual activity) 30 Days Qty: 30 1RF Rx Instructions: administer 60 minutes before intended activity carvedilol 3.125 mg tablet 3.125 mg PO BID Qty: 60 5RF pantoprazole [Protonix] 40 mg tablet,delayed release (DR/EC) 40 mg PO DAILY 90 Days Qty: 90 1RF terazosin 10 mg capsule 10 mg PO BEDTIME 30 Days Qty: 30 1RF Referrals: [facility] [Provider Group]
--- NOTE | 2023-01-23 11:51 | PC.NURSE ---
pt to xray at this time.
[2023-01-23] MEDS: Acetaminophen 325 MG TABLET 975 MG PO (12:13)
[2023-01-23 12:18] VITALS: BP 120/87; PULSE 73; RESP 16; O2SAT 94
--- NOTE | 2023-01-23 12:21 | PC.NURSE ---
labs obtained/sent to lab. pt going to CT at this time.
[2023-01-23 12:24] LABS: MANUAL DIFF FLAG NO
[2023-01-23 12:25] LABS: Basophils Percent Auto 0.2 % (0-2); Eosinophils Absolute Auto 0.1 X10*3/uL (0.0-0.4); Eosinophils Percent Auto 1.3 % (0-4); Hematocrit 48.9 % (42.0-52.0); Hemoglobin 16.5 g/dl (14.0-18.0); Imm Gran Abs Auto 0.01 X10*3/uL (0.00-0.03); Imm Gran Pct Auto 0.1 % (0.0-0.4); Lymphocytes Absolute Auto 3.3 X10*3/uL (1.2-4.9); Lymphocytes Percent Auto 37.1 % (20-40); Mean Corpuscular HGB Conc 33.7 g/dl (31.0-36.0); Mean Corpuscular Hemoglobin 30.1 pg (27.0-33.0); Mean Corpuscular Volume 89.1 fL (80.0-98.0); Mean Platelet Volume 10.2 fL (9.4-12.4); Monocytes Absolute Auto 0.8 X10*3/uL (0.1-1.2); Monocytes Percent Auto 8.9 % (2-11); Neutrophils Absolute Auto 4.7 x10*3/uL (2.0-8.3); Neutrophils Percent Auto 52.4 % (45-73); Platelet Count 178 X10*3/uL (160-400); Red Blood Count 5.49 X10*6/uL (4.60-5.80); Red Cell Distribution Width 12.1 % (11.0-16.0); White Blood Count 8.9 X10*3/uL (4.8-10.8)
[2023-01-23 12:41] LABS: Anion Gap 8 (12-20); Blood Urea Nitrogen 13 mg/dL (9-16); Calcium 9.2 mg/dL (8.4-10.2); Carbon Dioxide 30 mmol/L (22-29); Chloride 104 mmol/L (96-108); Creatinine Clr Calc Pharmacy 102.3; Estimated Glomerular Filt Rate > 60; Glucose Random 86 mg/dL (60-115); Potassium 3.6 mmol/L (3.3-5.1); Sodium 138 mmol/L (135-145)
--- NOTE | 2023-01-23 13:17 | PC.NURSE ---
urine obtained/sent to lab.
[2023-01-23 13:32] LABS: Appearance Urine Clear; Color Urine Dark Yellow; Glucose Urine UA Negative (Negative); Leukocyte Esterase Urine Trace (Negative); Nitrite Urine Negative (Negative); PH 5.5 (5.0-9.0); Specific Gravity - Urine >= 1.030 (1.005-1.025); UMIC TRIGGER UACC YES; Urine Blood Moderate (2+) (Negative); Urine Ketones Trace mg/dL (Negative); Urine Protein Trace mg/dL (Neg-Trace)
[2023-01-23 13:35] LABS: Bacteria Urine None Seen (None Seen); Hyaline Casts Urine 0-2 /LPF (0-2); RBC Urine >20 /HPF (0-2); Squamous Epithelial Cell Urine 0-2 /HPF (0-2); UACC Culture Trigger YES
== END 2023-01-23 14:31 | disposition home or self-care (01) ==
PROVIDERS: Registered Nurse Emergency; Emergency Provider Emergency Medicine; PCP Physician Assistant
DX: S39.012A Strain of muscle, fascia and tendon of lower back, initial encounter (principal); S29.012A Strain of muscle and tendon of back wall of thorax, initial encounter; R10.2 Pelvic and perineal pain; I10 Essential (primary) hypertension; X58.XXXA Exposure to other specified factors, initial encounter; Y93.9 Activity, unspecified; Y92.9 Unspecified place or not applicable; Y99.9 Unspecified external cause status; Z79.899 Other long term (current) drug therapy
CPT/HCPCS: 36415; 52000; 72100; 74176; 80048; 81001; 81003; 85025; 87086; 99284

== ENCOUNTER 2023-01-30 12:46 | Emergency (ER) | payer MEDICARE, MEDICAID, SELFPAY ==
[2023-01-30 14:00] VITALS: BP 135/98; PULSE 84; RESP 16; TEMP 36.8; O2SAT 95; BMI 28.1
--- NOTE | 2023-01-30 14:01 | ED_ITS ---
HPI - Back Pain/Injury General Chief Complaint: Back Pain/Injury Stated Complaint: Back Pain No Injury Time Seen by Provider: 01/30/23 14:24 Source: patient and RN notes reviewed Mode of arrival: ambulatory Limitations: no limitations History of Present Illness HPI Narrative: This is a 4-afam-aat-male, with a hx of DIMITRIS, BPH, PVCs, HTN, and chronic back pain presenting to the ER with complaints of acute on chronic back pain. He reports no recent trauma, injury, heavy lifting or falls. He was here in the ER previously on 01/23 for the same symptoms, was discharged on flexeril and lidoderm patches which only provided him with some relief. He denies any fevers, chills, chest pain, shortness of breath, abdominal pain, nausea, vomiting, diarrhea, urinary symptoms. No saddle anethesia, urinary incontinence or retention. Denies bowel incontinence/retention. Pain worsens with movement and with palpation. No other complaints or concerns at this time. Pertinent past history: prior back pain Timing: constant Severity: moderate Quality: aching Location: lumbar spine Radiation: none Exacerbating factors: movement Relieving factors: immobilization Associated symptoms: denies other symptoms Work related injury: No Related Data Previous Rx's Medication Instructions Recorded acetaminophen 500 mg tablet 500 mg PO Q6H fever 7 days #28 tabs 07/03/22 amlodipine 10 mg tablet 10 mg PO DAILY 90 days #90 tabs 07/03/22 triamcinolone acetonide 0.1 % 1 appl topical DAILY 15 days #30 07/03/22 topical cream grams cyclobenzaprine 10 mg tablet 10 mg PO Q8H #20 tabs 08/06/22 pantoprazole 40 mg tablet,delayed 40 mg PO DAILY 90 days #90 tabs 11/07/22 release (Protonix) carvedilol 3.125 mg tablet 3.125 mg PO BID #60 tabs 01/03/23 lisinopril 20 mg tablet 20 mg PO DAILY 90 days #90 tabs 01/03/23 naproxen 500 mg tablet 500 mg PO BID 30 days #60 tabs 01/03/23 sildenafil 100 mg tablet 100 mg PO ONCE PRN sexual activity 01/03/23 30 days #30 tabs cyclobenzaprine 5 mg tablet 5 mg PO TID PRN muscle spasm #10 01/23/23 tabs lidocaine 5 % topical patch 1 patch topical DAILY #15 ea 01/23/23 terazosin 10 mg capsule 10 mg PO BEDTIME 90 days #90 caps 01/23/23 ibuprofen 600 mg tablet 600 mg PO TID PRN pain #30 tabs 01/30/23 lidocaine 5 % topical patch 1 patch topical DAILY #30 ea 01/30/23 methocarbamol 750 mg tablet 750 mg PO Q6H #12 tabs 01/30/23 Allergies Allergy/AdvReac Type Severity Reaction Status Date / Time No Known Allergies Allergy Verified 01/23/23 11:24 Review of Systems Review of Systems: Yes all other systems are reviewed and are negative Constitutional: Constitutional: Reports as per [facility] Past Medical History Attestation statement: The following information was validated with the patient. Medical History PVC (premature ventricular contraction) HTN (hypertension) Surgical History Hx of cystoscopy History of lumbar surgery Social History Social History Housing: Apartment Alcohol intake: unknown Patient Tobacco Use Status: Never used Tobacco e-Cigarette/Vaping Use: Never Used Second Hand Smoke Exposure: No Advance Directives: No Advance Directives Information Provided: No service: No Current occupational status: employed Current occupational exposures/hazards: No Cognitive needs: No Hearing needs: No Vision needs: Yes Physical Exam Vital Signs: Vital Signs: Last Vital Signs Temp 98.2 F 01/30/23 14:00 Pulse 84 01/30/23 14:00 Resp 16 01/30/23 14:00 BP 135/98 H 01/30/23 14:00 Pulse Ox 95 01/30/23 14:00 O2 Del Method Room Air 01/30/23 14:00 BMI result Body Mass Index 28.1 Const: General: cooperative, comfortable and no acute distress Orientation/consciousness: patient oriented x3 Limitations: no limitations HEENT: Head: Yes normal to inspection, Yes normocephalic and Yes atraumatic Ears: hearing grossly normal bilaterally General nose exam: Normal external nose present Face and sinus: Yes normal facial exam Mouth: Normal oral and palatal mucosa present, oropharynx normal and moist mucous membranes Throat: Yes posterior oropharynx normal Eyes: General: appearance normal, both eyes and all related structures Eyelids: Yes eyelids normal Conjunctivae: conjunctivae normal Sclerae: sclerae normal Pupils: Equal, round and reactive pupils present EOM: EOMs intact bilaterally Neck: Neck: Yes normal visual inspection, Yes full ROM and Yes no lymphadenopathy Lymphatic: no lymphadenopathy noted Chest: Chest palpation & inspection: normal inspection of the chest Resp: Effort & Inspection: normal respiratory effort and able to speak in complete sentences Auscultation: clear to auscultation bilaterally, no crackles, no rales, no rhonchi and no wheezes Cardio: Rate: regular rate Rhythm: regular rhythm Heart sounds: S1 normal heart sound present and S2 normal heart sound present GI: Other: abdomen is soft, nontender Inspection: Yes normal to inspection Back/Spine/Pelvis: Other: TTP over the lumbar paraspinous muscles. Old surgical scar noted on midline lumbar spine - well healed, not indurated, warm or erythematous Full ROM of the back. Patellar reflexes 2+ Strength 5/5 Distal sensation and circulation intact. Skin: General skin exam: no rashes or lesions noted Trauma: no lacerations or abrasions Wounds: no wounds Neuro: General: patient oriented x3 and moves all extremities Cranial nerves: Yes Equal, round and reactive pupils present Extrem: General: Yes normal to inspection Right upper extremity: normal to inspection Left upper extremity: normal to inspection Right lower extremity: normal to inspection Left lower extremity: normal to inspection Medical Decision Making Medical Decision Making MDM Narrative: 67 y/o M presenting to the ER with complaints of acute on chronic back pain. This patient presents with back pain most consistent with chronic bacck pain. Differential diagnoses includes lumbago versus musculoskeletal spasm / strain versus sciatica. No back pain red flags on history or physical. Presentation not consistent with malignancy (lack of history of malignancy, lack of B symptoms), fracture (no trauma, no bony tenderness to palpation), cauda equina syndrome (no bowel or urinary incontinence/retention, no saddle anesthesia, no distal weakness), pyelonephritis (afebrile, no CVAT, no urinary symptoms). Given the clinical picture, as well as recent negative work up, no indication for imaging at this time. VSS. Pt d/c on different muscle relaxant - given spine specialists for follow up. Given return precautions, pt understands and agrees with plan. Stable for d/c. Differential Diagnosis Differential Diagnoses: The differential diagnosis associated with the presentation includes see above Discharge Plan Discharge Clinical Impression: Chronic back pain Patient Disposition: Home, Self-Care Instructions: Acute Low Back Pain (ED), Chronic Back Pain (DC) Additional Instructions: You presented to the emergency department due to back pain. This is likely due to muscle spasms, and chronic back pain. Please take prescribed medication as directed. Please be aware that muscle relaxants can cause drowsiness, do not drink alcohol or drive while taking this medication. You need to follow-up with the medical transport specialist, call today to make an appointment. If any new or worsening symptoms occur, please return for re-evaluation. Prescriptions: New methocarbamol 750 mg tablet 750 mg PO Q6H Qty: 12 0RF ibuprofen 600 mg tablet 600 mg PO TID PRN (Reason: pain) Qty: 30 0RF lidocaine 5 % adhesive patch,medicated 1 patch topical DAILY Qty: 30 0RF Rx Instructions: leave on most painful area for up to 12 hrs No Action cyclobenzaprine 10 mg tablet 10 mg PO Q8H Qty: 20 0RF cyclobenzaprine 5 mg tablet 5 mg PO TID PRN (Reason: muscle spasm) Qty: 10 0RF lidocaine 5 % adhesive patch,medicated 1 patch topical DAILY Qty: 15 0RF Rx Instructions: leave on most painful area for up to 12 hrs acetaminophen 500 mg tablet 500 mg PO Q6H 7 Days Qty: 28 0RF amlodipine 10 mg tablet 10 mg PO DAILY 90 Days Qty: 90 3RF triamcinolone acetonide 0.1 % cream 1 appl topical DAILY 15 Days Qty: 30 0RF lisinopril 20 mg tablet 20 mg PO DAILY 90 Days Qty: 90 1RF naproxen 500 mg tablet 500 mg PO BID 30 Days Qty: 60 2RF sildenafil 100 mg tablet 100 mg PO ONCE PRN (Reason: sexual activity) 30 Days Qty: 30 1RF Rx Instructions: administer 60 minutes before intended activity carvedilol 3.125 mg tablet 3.125 mg PO BID Qty: 60 5RF pantoprazole [Protonix] 40 mg tablet,delayed release (DR/EC) 40 mg PO DAILY 90 Days Qty: 90 1RF terazosin 10 mg capsule 10 mg PO BEDTIME 90 Days Qty: 90 1RF Referrals: Jacobo Santos MD, PhD [Physician] - Interventions: ED Discharge Assessment Last Done: 01/30/23 14:36 Discharge Date/Time: 01/30/23 14:37
== END 2023-01-30 14:37 | disposition home or self-care (01) ==
PROVIDERS: Emergency Provider Emergency Medicine Emergency Medical Services; PCP Physician Assistant
DX: G89.29 Other chronic pain (principal); M54.50 Low back pain, unspecified; I10 Essential (primary) hypertension; Z79.899 Other long term (current) drug therapy
CPT/HCPCS: 99282; 99283

== ENCOUNTER → 2023-02-12 10:00 | Outpatient (REF) | payer MEDICARE, OTHER, SELFPAY | LOC: HO.SL 10:00 | PROVIDERS: PCP Physician Assistant; Visit Provider Physician Assistant | DX: Z13.89 Encounter for screening for other disorder (principal) | CPT/HCPCS: 99202 ==

== ENCOUNTER → 2023-02-12 10:14 | Outpatient (BNV) | payer MEDICARE, SELFPAY | PROVIDERS: PCP Physician Assistant; Visit Provider Internal Medicine | DX: G47.33 Obstructive sleep apnea (adult) (pediatric) (principal) | CPT/HCPCS: 95806 ==

== ENCOUNTER 2023-02-12 10:18 | Emergency (ER) | payer MEDICARE, MEDICAID, SELFPAY ==
[2023-02-12 11:42] VITALS: BP 133/102; PULSE 86; RESP 19; TEMP 37; O2SAT 94; BMI 38.7
--- NOTE | 2023-02-12 11:43 | ED.GENADULT ---
HPI - General Adult General Chief complaint: Back Pain/Injury Stated complaint: back pain Time Seen by Provider: 02/12/23 11:55 Source: patient, RN notes reviewed and old records reviewed Mode of arrival: ambulatory Limitations: no limitations History of Present Illness HPI narrative: 67 year old male presents for evaluation of left lower back pain Symptoms started 3 weeks ago. This is his third ED visit for similar symptoms. He endorses chronic back pain Denies any recent injury No numbness or tingling Denies any difficulty urinating denies constipation His pain is 8/10 Related Data Previous Rx's Medication Instructions Recorded acetaminophen 500 mg tablet 500 mg PO Q6H fever 7 days #28 tabs 07/03/22 amlodipine 10 mg tablet 10 mg PO DAILY 90 days #90 tabs 07/03/22 triamcinolone acetonide 0.1 % 1 appl topical DAILY 15 days #30 07/03/22 topical cream grams cyclobenzaprine 10 mg tablet 10 mg PO Q8H #20 tabs 08/06/22 pantoprazole 40 mg tablet,delayed 40 mg PO DAILY 90 days #90 tabs 11/07/22 release (Protonix) carvedilol 3.125 mg tablet 3.125 mg PO BID #60 tabs 01/03/23 lisinopril 20 mg tablet 20 mg PO DAILY 90 days #90 tabs 01/03/23 naproxen 500 mg tablet 500 mg PO BID 30 days #60 tabs 01/03/23 sildenafil 100 mg tablet 100 mg PO ONCE PRN sexual activity 01/03/23 30 days #30 tabs cyclobenzaprine 5 mg tablet 5 mg PO TID PRN muscle spasm #10 01/23/23 tabs lidocaine 5 % topical patch 1 patch topical DAILY #15 ea 01/23/23 terazosin 10 mg capsule 10 mg PO BEDTIME 90 days #90 caps 01/23/23 ibuprofen 600 mg tablet 600 mg PO TID PRN pain #30 tabs 01/30/23 lidocaine 5 % topical patch 1 patch topical DAILY #30 ea 01/30/23 methocarbamol 750 mg tablet 750 mg PO Q6H #12 tabs 01/30/23 dexamethasone 4 mg tablet 4 mg PO BID #6 tabs 02/12/23 tramadol 50 mg tablet 50 mg PO TID PRN severe pain 02/12/23 (scale score 7-10) #12 tabs Allergies Allergy/AdvReac Type Severity Reaction Status Date / Time No Known Allergies Allergy Verified 01/23/23 11:24 Review of Systems Constitutional: Constitutional: Denies body ache(s), Denies chills and Denies fever(s) Cardiovascular: Cardiovascular: Denies chest pain and Denies dyspnea Respiratory: Respiratory: Denies cough and Denies dyspnea Gastrointestinal: Gastrointestinal: Denies abdominal pain, Denies nausea and Denies vomiting Musculoskeletal: Musculoskeletal: Reports back pain, Denies numbness, Denies stiffness and Denies tingling Neurologic: Denies numbness and Denies tingling PMFSH Past Medical History Medical History PVC (premature ventricular contraction) HTN (hypertension) Surgical History Hx of cystoscopy History of lumbar surgery Social History Social History Housing: Apartment Alcohol intake: unknown Patient Tobacco Use Status: Never used Tobacco e-Cigarette/Vaping Use: Never Used Second Hand Smoke Exposure: No Advance Directives: No Advance Directives Information Provided: Yes service: No Current occupational status: employed Current occupational exposures/hazards: No Cognitive needs: No Hearing needs: No Vision needs: Yes Physical Exam ED Vital Signs: Vital Signs - 24 hr 02/12/23 11:42 Temperature 98.6 F Pulse Rate 86 Respiratory Rate 19 Blood Pressure 133/102 H Pulse Oximetry 94 BMI result Body Mass Index 38.7 Const General: healthy appearing, comfortable, no acute distress, alert and awake Nutritional Appearance: well nourished Orientation/consciousness: patient oriented x3 HENMT Head: Yes normocephalic and Yes atraumatic Eyes Eyelids: Yes eyelids normal Conjunctivae: conjunctivae normal Sclerae: sclerae normal Corneas: corneas normal Pupils: Equal, round and reactive pupils present EOM: EOMs intact bilaterally Neck Neck: Yes full ROM Resp Effort & Inspection: normal respiratory effort, able to speak in complete sentences and not labored GI Inspection: No distended Palpation (GI): Soft to palpation, not firm, nontender, no guarding and not rigid Back/Spine/Pelvis Other: Tenderness across the left lumbar paraspinous muscles without vertebral tenderness or deformity Skin General skin exam: elasticity normal Neuro General: patient oriented x3 Cranial nerves: Yes Equal, round and reactive pupils present and Yes Bilaterally intact EOM present Cognition (Neuro): normal cognition Extrem Other: Moving all extremities well without any obvious deformities Course Course Course Narrative: RME- 67 year old male presents for evaluation of back pain that started 3 weeks ago. This is his third visit in the last 3 weeks for the same pain. He has had negative x-rays of the lumbar spine, labs, UA, and a CT Medical Decision Making Medical Decision Making MDM Narrative: Patient presents for acute chronic back pain. This is his 3rd visit in the last 3 weeks. I reviewed his recent workups. Not see any indication for further emergent workup. The patient will be discharged with dexamethasone and tramadol and will be referred back to his PCP for further outpatient management. The patient may benefit from an outpatient MRI but he has no warning signs for cauda equina syndrome Differential Diagnosis Differential Diagnoses: The differential diagnosis associated with the presentation includes Acute on chronic back pain Muscle strain Radiculopathy Disc herniation External Record Review External record reviewed: Outpatient record and Prior outpatient labs Discharge Plan Discharge Clinical Impression: Acute exacerbation of chronic low back pain Patient Disposition: Home, Self-Care Instructions: Pain Management (ED) Additional Instructions: You may use Ibuprofen for pain Take dexamethasone twice daily Take Tramadol as needed for pain This may make you sleepy, do not drive or drink alcohol after taking it. Follow up with your primary doctor, you may benefit from an MRI of your lower back Prescriptions: New dexamethasone 4 mg tablet 4 mg PO BID Qty: 6 0RF tramadol 50 mg tablet 50 mg PO TID PRN (Reason: severe pain (scale score 7-10)) Qty: 12 0RF No Action cyclobenzaprine 10 mg tablet 10 mg PO Q8H Qty: 20 0RF methocarbamol 750 mg tablet 750 mg PO Q6H Qty: 12 0RF ibuprofen 600 mg tablet 600 mg PO TID PRN (Reason: pain) Qty: 30 0RF lidocaine 5 % adhesive patch,medicated 1 patch topical DAILY Qty: 30 0RF Rx Instructions: leave on most painful area for up to 12 hrs cyclobenzaprine 5 mg tablet 5 mg PO TID PRN (Reason: muscle spasm) Qty: 10 0RF lidocaine 5 % adhesive patch,medicated 1 patch topical DAILY Qty: 15 0RF Rx Instructions: leave on most painful area for up to 12 hrs acetaminophen 500 mg tablet 500 mg PO Q6H 7 Days Qty: 28 0RF amlodipine 10 mg tablet 10 mg PO DAILY 90 Days Qty: 90 3RF triamcinolone acetonide 0.1 % cream 1 appl topical DAILY 15 Days Qty: 30 0RF lisinopril 20 mg tablet 20 mg PO DAILY 90 Days Qty: 90 1RF naproxen 500 mg tablet 500 mg PO BID 30 Days Qty: 60 2RF sildenafil 100 mg tablet 100 mg PO ONCE PRN (Reason: sexual activity) 30 Days Qty: 30 1RF Rx Instructions: administer 60 minutes before intended activity carvedilol 3.125 mg tablet 3.125 mg PO BID Qty: 60 5RF pantoprazole [Protonix] 40 mg tablet,delayed release (DR/EC) 40 mg PO DAILY 90 Days Qty: 90 1RF terazosin 10 mg capsule 10 mg PO BEDTIME 90 Days Qty: 90 1RF
== END 2023-02-12 12:12 | disposition home or self-care (01) ==
PROVIDERS: Emergency Provider Emergency Medicine; PCP Physician Assistant
DX: M54.6 Pain in thoracic spine (principal); M54.50 Low back pain, unspecified; G47.33 Obstructive sleep apnea (adult) (pediatric)
CPT/HCPCS: 72072; 95806; 99202; 99282; 99283

== ENCOUNTER 2023-02-12 12:41 | Outpatient (AMB) | payer MEDICARE, MEDICAID, SELFPAY ==
--- NOTE | 2023-02-12 13:19 | A.SPINEOV_ITS ---
Intake Intake Visit Reasons: Acute chronic back pain. Intake Note: Mr. Julián Nava has been referred by [facility] for acute chronic back pain. 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 Kofi is a pleasant 67-year-old male who comes in today with chief complaint of back pain since July of this year. He reports that 10 years ago he had spinal fusion surgery in [place], which resolved his low back pain for many years until July when he woke up one morning and felt significant pain in his mid-low back. He states this mid-low back pain also radiates into his bilateral calves. He reports that he has a history of kidney stones that needed to be surgically removed 5 years ago but does not feels that this is a similar pain. He reports that he has tried ibuprofen, Tylenol, muscle relaxers, [id number] pain patches, and ramc-txq-tfywsev creams without much alleviation of symptoms. He has tried at- home stretching/exercise without significant relief and reports this only exacerbates his pain. For the last 6 months he has been ambulating with a cane, and finds it hard to walk for extended periods of time. He reports that he is much more comfortable flex forward than he is extending his back backwards. He reports that his pain is the worse when lying flat on his bed. He also reported that he gets pain in his midback when he attempts to urinate. Of note he reports no recent constitutional symptoms, no weight loss, no fevers, no saddle anesthesia, no difficulty with urination, and no increased urinary frequency/incontinence. PMH: Obstructive sleep apnea, unspecified dermatitis, cardiomyopathy, BPH, GERD, erectile dysfunction, PVC, hypertension, L4-S1 TLIF seen on previous X-ray imaging. Hx surgical removal of kidney stones. He reports a recent pelvis ultrasound and uroscopy within the last 6 months, both of which were unremarkable. Social hx: Patient does not smoke, reports no substance use. Medications: Tylenol, amlodipine, carvedilol, cyclobenzaprine, dexamethasone, ibuprofen, lidocaine patches, lisinopril, methocarbamol, naproxen, Protonix, sildenafil, terazosin, tramadol, triamcinolone. Allergies: NKDA. Physical exam: Kofi has 5/5 strength in his bilateral upper and lower extremities. His sensation is grossly intact. His reflexes are 2+ and intact. He ambulates with the assistance of a cane, and rises from a seated position with the assistance of a cane. He does have some pain disclosed to direct palpation of the thoracic/lumbar spine. (-) straight leg raise bilaterally, (-) Teague's, (-) clonus. Imaging review: X-ray lumbar spine imaging completed in July of this year shows L4-S1 TLIF. Recent CT scan performed our emergency department is generally unremarkable from a neurosurgical standpoint, CT read states there is no evidence for obstructive uropathy.. Similar findings seen on x-ray imaging described previously. X-ray of the thoracic spine shows no acute compression fracture but does show extensive osteophyte bridging of the thoracic spine. Impression: Kofi is a pleasant 67-year-old male who comes in today with a chief complaint of mid-low back pain which has been ongoing for the past 6 months. He reports previous history of low back pain which is treated via lumbar fusion 10 years ago, which can be seen on his recent imaging. He has tried many htpo-jov-[id number] and prescription remedies without significant relief of his back pain. He has relief of pain with flexion and increased pain with spine extension. He also has pain to direct palpation over the thoracic spine / lumbar spine. 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 His story is fairly classic that of spinal stenosis, including his disclosure that he needs to lean over a shopping cart when attempting to ambulate around the grocery store. He also needs to stop frequently after walking for prolonged periods of time to sit down and rest. For this reason I would like to get a MRI of the lumbar spine to rule out central canal stenosis and r/o any exiting nerve root impingement. An x-ray of the thoracic spine was also taken today to identify the possibility of compression fracture at this level, as he does have pain to direct palpation of the spine, which appears unremarkable. We will follow up with the patient after he has completed his MRI. Thank you for allowing us to care for your patient. The total time spent with this visit with this patient was 60 minutes reviewing history, physical exam, MRI imaging review, XR imaging review, and implement ation of treatment plan or further diagnostic testing Roge Santos MD,PhD [facility] Orders: Orders XR thoracic spine 3V Today G89.29 - Other chronic pain, M54.50 - Low back pain, unspecified MR lumbar spine wo con Today M54.16 - Radiculopathy, lumbar region Coding Level of Care Code New Pt Level 5 (28155) Diagnoses Acute exacerbation of chronic low back pain M54.50; G89.29
== END 2023-02-12 14:09 | disposition home or self-care (01) ==
PROVIDERS: PCP Physician Assistant; Visit Provider Physician Assistant
DX: M54.50 Low back pain, unspecified (principal); G89.29 Other chronic pain
CPT/HCPCS: 99205; 99215

== ENCOUNTER 2023-02-12 13:39 | Outpatient (REF) | payer MEDICARE, OTHER, SELFPAY | END 2023-02-12 13:40 | disposition home or self-care (01) | LOC: HO.HOSX 13:39 | PROVIDERS: Visit Provider Physician Assistant | DX: Z13.89 Encounter for screening for other disorder (principal) | CPT/HCPCS: 72072 ==

== ENCOUNTER 2023-02-21 08:57 | Outpatient (AMB) | payer MEDICARE, MEDICAID, SELFPAY ==
[2023-02-21 10:44] VITALS: BP 126/78; PULSE 87; TEMP 36.6; O2SAT 98; BMI 38.6
--- NOTE | 2023-02-21 10:44 | MHC.OFFWIV ---
Intake Vital Signs 02/21/23 10:44 Height 5 ft 4 in Weight 225 lb BMI 38.6 BP 126/78 Blood Pressure Location Lt brachial Position Sitting Pulse 87 Pulse Source Pulse Oximeter Temp 97.9 F Temp Source Temporal Artery Scan Pulse Oximetry (%) 98 Oxygen Delivery Method Room Air Intake Visit Reasons: EP Upper back pain 3 weeks, seen at ED Intake Note: pt is here today for upper back pain started 3 weeks ago Patient Tobacco Use Status: Never used Tobacco Allergies No Known Allergies Allergy (Verified 02/21/23 10:44) Do you need a note to return to daycare/school/sports/work: No HPI HPI Comments History of Present Illness Details He speaks equatorial guinean and declined interpretter Lower back pain x 3 weeks He denies injury or trauma Occurred when he woke up and reached to the side Hurts worse with movement Was seen 01/03 for physical and given naproxen for back pain which helped; 30 day supply He also has cyclobenzaprine in past; he last took it last night for his chronic muscle aches He said his back has been pretty constant for last month He denies dysuria, hematuria, no frquency or urgency. No blood No abdominal pain, CP or SOB PFSH Medical History PVC (premature ventricular contraction) HTN (hypertension) Surgical History Hx of cystoscopy History of lumbar surgery Social History Housing: Apartment Alcohol intake: unknown Patient Tobacco Use Status: Never used Tobacco e-Cigarette/Vaping Use: Never Used Second Hand Smoke Exposure: No service: No Current occupational status: employed Current occupational exposures/hazards: No Cognitive needs: No Hearing needs: No Vision needs: Yes Review of Systems Const Denies chills, Denies fatigue, Denies fever(s) and Denies headache(s) Eyes Denies blurry vision ENT Denies headache(s) Card Denies chest pain, Denies leg edema and Denies dyspnea Resp Denies chest congestion, Denies cough and Denies dyspnea GI Denies abdominal pain, Denies melena, Denies hematochezia, Denies constipation and Denies diarrhea Denies urinary frequency, Denies urinary hesitancy, Denies urinary incontinence and Denies urinary urgency Musc Reports back pain, Denies numbness and Denies tingling Skin/Breast Denies rash Neuro Denies headache(s), Denies numbness and Denies tingling Endo Denies fatigue Physical Exam Vital Signs: Last Vital Signs Temp 97.9 F 02/21/23 10:44 Pulse 87 02/21/23 10:44 BP 126/78 02/21/23 10:44 Pulse Ox 98 02/21/23 10:44 Oxygen Delivery Method Room Air 02/21/23 10:44 BMI result Body Mass Index 38.6 General: Non-toxic, NAD. Speaking full sentences. Skin: Warm dry throughout. No rashes or lesions to back or flank. + well healed incision lumbar midline spine Eye: EOMI HENT: Airway patent. Uvula midline. No pharyngeal erythema or edema. No LENS MOLD SETTER. Tms clear without erythema or bulging. No perforation Respiratory: CTA bilaterally. No wheezes, rales or rhonchi Cardiac: RRR. No murmur MSK: No midline cervical or thoracic tenderness. + midline lower T spine/upper lumbar tenderness to palpation. Negative SLR bilaterally. Minimal R lumbar paravertebral muscle tenderness to palpation. No L sided paravertebral tenderness. Full ROM upper extremities. Neurology: A/O x 3. CN 2-12 grossly intact. No aphasia or facial droop. Gait without abnormality Psych: Good mood and affect Assessment & Plan Assessment & Plan (1) Back pain: Code(s): M54.9 - Dorsalgia, unspecified Qualifiers: Back pain location: low back pain Chronicity: unspecified Back pain laterality: right Sciatica presence: without sciatica Qualified Code(s): M54.50 - Low back pain, unspecified Plan: Patient seen and evaluated. No poterior back or flank rashes No radiculopathy into legs or urine symptoms. Vital stable Pt had xray ordered and obtained of T spine (as pain is lower T spine/upper L spine in location) It has yet to be dictated but it is complete I viewed it as + multilevel degenerative changes and decreased disc space. No obvious compression fx noted. Last kidney function was end of December and fine Will give refill on Naprox and Cyclobenzaprine and needs to f/u with PCP for xray and continual evaluation and management he is not on tramadol. He knows not to take ibuprofen with naproxen Discussed ER symptoms with pt. Patient gave verbal understanding and had no additional questions or concerns at time of discharge All questions answered Medications: New naproxen 500 mg PO BID PRN 14 tabs 0RF pain M54.9 - Dorsalgia, unspecified cyclobenzaprine 5 mg PO TID PRN 15 tabs 0RF muscle spasm M54.9 - Dorsalgia, unspecified Coding Level of Care Code Est Pt Level 3 (38116) Diagnoses Right-sided low back pain without sciatica, unspecified chronicity M54.50 Back pain location: low back pain Chronicity: unspecified Back pain laterality: right Sciatica presence: without sciatica
== END 2023-02-21 11:43 | disposition home or self-care (01) ==
PROVIDERS: PCP Physician Assistant; Visit Provider Physician Assistant
DX: M54.50 Low back pain, unspecified (principal)
CPT/HCPCS: 99213

== ENCOUNTER 2023-04-08 14:24 | Outpatient (AMB) | payer MEDICARE, MEDICAID, SELFPAY ==
[2023-04-08 14:28] VITALS: BP 130/70; PULSE 76; O2SAT 98; BMI 38.5
--- NOTE | 2023-04-08 14:28 | MHC.PC.OV ---
Vital Signs 04/08/23 14:28 Height 5 ft 4 in Weight 224 lb 8 oz BMI 38.5 BP 130/70 Blood Pressure Location Lt brachial Position Sitting Pulse 76 Pulse Source Pulse Oximeter Pulse Oximetry (%) 98 Oxygen Delivery Method Room Air Intake Visit Reasons: ED F/U-Chronic back Pain Intake Note: Patient is here to follow-up after a visit the emergency department at [facility] [place] on 02/12/23 due to chronic back pain. 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 Accompanied by: Self / Same As Patient Allergies No Known Allergies Allergy (Verified 04/08/23 14:41) Medication List - Last Reconciled 04/08/23 by Rosales Cervantes PA-C acetaminophen 500 mg PO Q6H 7 days amlodipine 10 mg PO DAILY 90 days carvedilol 3.125 mg PO BID CPAP (CPAP Machine/Device) Auto PAP 6-20 cm water cyclobenzaprine 10 mg PO Q8H cyclobenzaprine 5 mg PO TID PRN ibuprofen 600 mg PO TID PRN lidocaine 5% 1 patch topical DAILY lisinopril 20 mg PO DAILY 90 days methocarbamol 750 mg PO Q6H naproxen 500 mg PO BID PRN pantoprazole (Protonix) 40 mg PO DAILY 90 days sildenafil 100 mg PO ONCE PRN 30 days terazosin 10 mg PO BEDTIME 90 days tramadol 50 mg PO TID PRN triamcinolone acetonide 0.1% 1 appl topical DAILY 15 days Tobacco use date assessed: 04/08/23 Fall risk assessment: No Falls in past year Last assessed Fall Risk: 04/08/23 Dental Screening Dental Screen Date: 04/08/23 Did you have a dental visit in the last 12 months?: No Did you have a dental problem in the last 6 months where you did not have access to dental care?: No Was dental information given to patient?: Patient has dentist HPI ED F/U-Chronic back Pain HPI Details Patient is a 67-year-old male here today in ER follow-up visit. Was seen in the ER in January for acute back pain. X-ray of his thoracic spine showing Rigid spine with large fused anterior osteophytes. No discrete fracture or subluxation. Moderate multilevel intervertebral disc height loss and facet arthropathy. He has been using Tylenol, naproxen and muscle relaxer with only decent relief of his thoracic spine pain. His lumbar spine he reports no pain in. [facility] Medical History PVC (premature ventricular contraction) HTN (hypertension) Surgical History Hx of cystoscopy History of lumbar surgery Social History Housing: Apartment Alcohol intake: unknown Patient Tobacco Use Status: Never used Tobacco e-Cigarette/Vaping Use: Never Used Second Hand Smoke Exposure: No service: No Current occupational status: employed Current occupational exposures/hazards: No Cognitive needs: No Hearing needs: No Vision needs: Yes Questionnaire PHQ-9 Over the last 2 weeks, how often have you been bothered by any of the following problems? 1. Little interest or pleasure in doing things: not at all 2. Feeling down, depressed, or hopeless: not at all 3. Trouble falling or staying asleep, or sleeping too much: not at all 4. Feeling tired or having little energy: not at all 5. Poor appetite or overeating: not at all 6. Feeling bad about yourself - or that you are a failure or have let yourself or your family down: not at all 7. Trouble concentrating on things, such as reading the newspaper or watching television: not at all 8. Moving or speaking so slowly that other people could have noticed. Or the opposite - being so fidgety or restless that you have been moving around a lot more than usual: not at all 9. Thoughts that you would be better off or of hurting yourself in some way: not at all Total score: 0 Depression Screening Interpretation: Negative Depression Screening Done: Yes 90968 - PHQ-9 Billing: Yes Source: Developed by Drs. Erik Fermin, Christi Obregon, Kane Mike and colleagues, with an educational jailyn from [employer]. Thrive Questionnaire Date Thrive assessed: 04/08/23 I am a: Patient What is your living situation today?: I have a steady place to live Within the past 12 months, did the food you bought not last and you didn't have the money to get more?: Never true Within the past 12 months, did you worry whether your food would run out before you got money to buy more?: Never true Do you have trouble paying for medicines?: No Do you have trouble getting transportation to medical appointments?: No Do you have trouble paying your heating and electricity bill?: No Do you have trouble taking care of your child, family member or friend?: No Do you have trouble with day-to-day activities such as bathing, preparing meals, shopping, managing finances, etc.?: No Are you currently unemployed and looking for a job?: No Are you interested in more education?: No Please select the resources that you would like help with: None Currently or been in a relationship where the following occur: no concerns reported THRIVE Score: 0 AUDIT C Alcohol Use Questionnaire (AUDIT-C) 1. How often do you have a drink containing alcohol?: Never Total Score: 0 Score Reviewed/Action Taken: No ZOE-7 AMB Questionnaire ZOE-7 Date ZOE - 7 assessed: 04/08/23 Feeling nervous, anxious, or on edge: 0 = Not at all Not being able to stop or control worryin = Not at all Worrying too much about different things: 0 = Not at all Trouble relaxin = Not at all Being so restless that it is hard to sit still: 0 = Not at all Becoming easily annoyed or irritable: 0 = Not at all Feeling afraid as if something awful might happen: 0 = Not at all Total ZOE-7 score (0-4 normal; 5-9 mild; 10-14 moderate; 15-21 severe): 0 Source: Developed by Drs. Erik Fermin, Christi Obregon, Kane Mike and colleagues, with an educational jailyn from [employer]. ZOE-7 Assessment Billing ZOE-7 Assessment Tool: ZOE-7 Assessment 90173 Review of Systems Const Denies headache(s) Eyes Denies loss of vision ENT Denies vertigo, Denies dizziness, Denies headache(s) and Denies sore throat Card Denies chest pain, Denies leg edema and Denies lightheadedness Resp Denies cough, Denies hemoptysis and Denies wheezing GI Denies abdominal pain, Denies melena, Denies constipation, Denies diarrhea and Denies vomiting Denies dysuria, Denies urinary frequency and Denies urinary urgency Musc Denies arthralgias, Denies joint swelling, Denies numbness and Denies tingling Neuro Denies Abnormal speech present, Denies behavioral changes, Denies vertigo, Denies dizziness, Denies headache(s), Denies loss of vision, Denies memory loss, Denies numbness and Denies tingling Psych Denies anxiety, Denies behavioral changes, Denies depression, Denies memory loss and Denies panic attacks Sundar/Lymph Denies easy bleeding and Denies easy bruising Aller/Immun Denies wheezing Physical exam (Primary Care) Vital Signs: Last Vital Signs Pulse 76 04/08/23 14:28 BP 130/70 04/08/23 14:28 Pulse Ox 98 04/08/23 14:28 Oxygen Delivery Method Room Air 04/08/23 14:28 BMI result Body Mass Index 38.5 Tobacco/Smoking Status: Tobacco use Status Tobacco use date assessed 04/08/23 04/08/23 14:38 Patient Tobacco Use Status Never used Tobacco 04/08/23 14:28 e-Cigarette/Vaping Use Never Used 04/08/23 14:28 PHQ-9: PHQ-9 Score PHQ-9: Total score 0 04/08/23 14:38 Depression Screening Interpretation: Negative Thrive Assessment: Date of Thrive Assessment Date Thrive assessed 04/08/23 04/08/23 14:36 Currently or been in a relationship where the following occur: no concerns reported Const General: healthy appearing, no acute distress, alert and awake Nutritional Appearance: well nourished Orientation/consciousness: oriented to person, oriented to place and oriented to time HENMT Ears: TM's normal bilaterally General nose exam: Normal nasal mucous membranes and turbinates present Eyes Conjunctivae: conjunctivae normal Sclerae: sclerae normal Pupils: Equal, round and reactive pupils present Neck Neck: Yes no lymphadenopathy and Yes no JVD Thyroid: Thyroid normal Carotids: no bruits Resp Effort & Inspection: normal respiratory effort and not tachypneic Auscultation: no crackles, no rales, no rhonchi and no wheezes Cardio Rate: regular rate Rhythm: regular rhythm Heart sounds: no murmurs and normal S1 and S2 GI Palpation (GI): Soft to palpation, nontender, no hepatomegaly and no splenomegaly Auscultation: normal bowel sounds Back/Spine/Pelvis Back/spine/pelvis image: 1. MOST OF HIS PAIN LOCATED IN THE AREA OUTLINED Skin General skin exam: no rashes or lesions noted and dry skin Neuro General: oriented to person, oriented to place and oriented to time Cranial nerves: Yes Equal, round and reactive pupils present Speech: No Abnormal speech present Gait exam (Neuro): Normal gait present Motor exam (neuro): no tremor noted Extrem Right upper extremity: full ROM Left upper extremity: full ROM Right lower extremity: full ROM; no edema Left lower extremity: full ROM; no edema Psych Mental Status: mental status grossly normal Speech and movement: Normal speech and movement present Affect: normal affect Attitude: cooperative Thought process: Normal thought process present Assessment and Plan Assessment & Plan (1) Thoracic spine pain: Code(s): M54.6 - Pain in thoracic spine Plan: As per HPI patient does moderate to severe disease in his thoracic spine, will try for MRI thoracic spine as well to evaluate for any disc herniation. He is willing to see pain management for possible pain reduction modality. (2) Lumbar spine pain: Code(s): M54.50 - Low back pain, unspecified Plan: Has history of lumbar spine disc disease in his status post surgery. Currently using naproxen, acetaminophen and muscle relaxer with decent relief of his pain. Offered physical therapy though he declines. Orders: Orders MR thoracic spine wo con Today M54.6 - Pain in thoracic spine Referrals Pain Management Referral M54.50 - Low back pain, unspecified, M54.6 - Pain in thoracic spine Medications: Changed From cyclobenzaprine 10 mg PO Q8H 20 tabs 0RF M54.6 - Pain in thoracic spine To cyclobenzaprine 10 mg PO Q8H 15 days 45 tabs 1RF M54.6 - Pain in thoracic spine From naproxen 500 mg PO BID PRN 14 tabs 0RF pain M54.9 - Dorsalgia, unspecified To naproxen 500 mg PO BID 15 days PRN 30 tabs 0RF pain M54.9 - Dorsalgia, unspecified Refilled acetaminophen 500 mg PO Q6H 7 days 28 tabs 0RF fever S93.402A - Sprain of unspecified ligament of left ankle, initial encounter Discontinued cyclobenzaprine Discontinued Reason: Doctor's Order 5 mg PO TID PRN 15 tabs 0RF muscle spasm M54.9 - Dorsalgia, unspecified Coding Level of Care Code Est Pt Level 4 (75323) Diagnoses Thoracic spine pain M54.6 Lumbar spine pain M54.50 Additional Codes ZOE-7 Assessment Billing - ZOE-7 Assessment Tool: ZOE-7 Assessment [id number] ([id number])
== END 2023-04-08 14:58 | disposition home or self-care (01) ==
PROVIDERS: PCP Physician Assistant; Visit Provider Physician Assistant
DX: M54.6 Pain in thoracic spine (principal); M54.50 Low back pain, unspecified
CPT/HCPCS: 99214

== ENCOUNTER 2023-04-17 08:14 | Outpatient (REF) | payer MEDICARE, SELFPAY ==
--- NOTE | ~2023-04-17 | MR_ITS ---
EXAMINATION: MR LUMBAR SPINE WITHOUT CONTRAST CLINICAL INFORMATION: Radiculopathy COMPARISON: None TECHNIQUE: MRI of the lumbar spine was obtained using routine sequences without contrast. FINDINGS: Postsurgical changes status post laminectomies from L3-L4 through L5-S1 and L4-S1 instrumented posterior interbody fusion. Please note the hardware would be better diagnostically assessed on CT. Solid interbody arthrodesis at L4-L5 and L5-S1. Normal lumbar lordosis is preserved. No significant spondylolisthesis. Vertebral body heights are maintained. There is no suspicious osseous lesion. There is multilevel disc desiccation. Disc height loss and osseous fusion across the T11-T12 and T12-L1 disc spaces. Type I Modic endplate changes along the T11 greater than L2 upper endplates. Level by level detail as follows: L1-L2: No spinal canal or neural foraminal stenosis. L2-L3: No spinal canal or neural foraminal stenosis. L3-L4: Post laminectomy changes. Left foraminal/far lateral annular fissuring. Bilateral facet arthrosis. No spinal canal dosis. Minimal bilateral neural foraminal encroachment. L4-L5: Posterior decompression and instrumented posterior interbody fusion. The spinal canal is decompressed. No neural foraminal stenosis. L5-S1: Posterior decompression and instrumented posterior interbody fusion. Disc osteophyte complex projecting into the bilateral neural foramina with minimal neural foraminal encroachment. The spinal canal is decompressed. The conus medullaris terminates at the level of L1-L2. The distal spinal cord is normal in appearance. No epidural fluid collection, hematoma, or mass. Postsurgical/denervation related severe fatty atrophy of the lower paraspinal musculature. Limited evaluation of the intra-abdominal structures without significant abnormalities. The abdominal aorta is of normal contour and caliber. MR/MR lumbar spine wo con IMPRESSION: Postsurgical changes status post L3-L4 through L5-S1 laminectomies and L4-S1 instrumented posterior interbody fusion. Solid interbody arthrodesis at L4-L5 and L5-S1. No significant spinal canal or neural foraminal stenosis at any level. Annular fissuring at L3-L4.
== END 2023-04-17 08:15 | disposition home or self-care (01) ==
LOC: HO.MRI 08:14
PROVIDERS: PCP Physician Assistant; Visit Provider Physician Assistant
DX: M54.16 Radiculopathy, lumbar region (principal)
CPT/HCPCS: 72148

== ENCOUNTER 2023-04-24 15:17 | Outpatient (AMB) | payer MEDICARE, MEDICAID, SELFPAY ==
[2023-04-24 15:04] VITALS: BP 120/90; PULSE 90; RESP 16; O2SAT 98; BMI 38.2
--- NOTE | 2023-04-24 15:04 | MHC.OFFVIS ---
Intake Vital Signs 04/24/23 15:04 Height 5 ft 4 in Weight 222 lb 6 oz BMI 38.2 BP 120/90 H Blood Pressure Location Lt brachial Position Sitting Respiration 16 Pulse 90 Pulse Source Pulse Oximeter Pulse Oximetry (%) 98 Oxygen Delivery Method Room Air Intake Visit Reasons: Radiculopathy, lumbar region Intake Note: Patient comes in for initial visit was referred by primary care. Reports pain 9.5/10. Allergies No Known Allergies Allergy (Verified 04/24/23 15:13) HPI HPI Comments History of Present Illness Details Kofi is [place]-speaking 67 years old gentleman who presented today in my office with complains on pain in the lower thoracic spine. Originally it was thought that the patient is coming here with pain in the lumbar spine secondary to postlaminectomy syndrome. He however today denied discomfort in the lumbar spine in pointed out that his pain is coming from the lower thoracic spine. He had x-ray of the thoracic spine results of which are dictated as below. He also had MRI of the lumbar spine and x-ray of the lumbar spine dictated as below. He has very extensive hardware in the lumbar spine. In terms of tissue damage he reports his pain is stabbing, lancinating, tugging, pulling, wrenching, tingling, stinging, tight, squeezing, tearing sensation. He denies any physical therapy to address the issue of the thoracic spine. He denied any injections for the thoracic spine. Past medical history according to the patient is negative but the chart contains information of him being treated by pulmonology for obstructive sleep apnea and by cardiology for mild congestive heart failure. Past surgical history significant for spinal fusion 8. years ago in [place]. Social history: He denies smoking cigarettes denies drinking alcohol when asked about recreational drugs he admitted to smoke cannabis but then he retrieve this statement and said that he smoked cannabis long time ago. [facility] Medical History PVC (premature ventricular contraction) HTN (hypertension) Surgical History Hx of cystoscopy History of lumbar surgery Social History Housing: Apartment Alcohol intake: unknown Patient Tobacco Use Status: Never used Tobacco e-Cigarette/Vaping Use: Never Used Second Hand Smoke Exposure: No service: No Current occupational status: employed Current occupational exposures/hazards: No Cognitive needs: No Hearing needs: No Vision needs: Yes Review of Systems Const Denies headache(s) Eyes Denies loss of vision ENT Reports Normal hearing present, Denies vertigo, Denies dizziness, Denies headache(s) and Denies sore throat Card Denies chest pain, Denies leg edema and Denies lightheadedness Resp Denies cough and Denies hemoptysis GI Denies abdominal pain, Denies melena, Denies constipation, Denies diarrhea and Denies vomiting Denies dysuria, Denies urinary frequency and Denies urinary urgency Musc Reports back pain, Denies arthralgias, Denies joint swelling, Denies numbness and Denies tingling Neuro Reports Normal hearing present, Denies Abnormal speech present, Denies vertigo, Denies dizziness, Denies headache(s), Denies loss of vision, Denies numbness, Denies Sensory deficit (Neuro) and Denies tingling Psych Denies anxiety and Denies depression Sundar/Lymph Denies easy bleeding and Denies easy bruising Physical Exam Vital Signs: Last Vital Signs Pulse 90 04/24/23 15:04 Resp 16 04/24/23 15:04 BP 120/90 H 04/24/23 15:04 Pulse Ox 98 04/24/23 15:04 Oxygen Delivery Method Room Air 04/24/23 15:04 BMI result Body Mass Index 38.2 Const General: no acute distress Nutritional Appearance: obese Orientation/consciousness: patient oriented x3 Eyes General: appearance normal, both eyes and all related structures Pupils: Equal, round and reactive pupils present EOM: EOMs intact bilaterally Neck Neck: Yes full ROM Chest Chest palpation & inspection: normal inspection of the chest Resp Effort & Inspection: normal respiratory effort, able to speak in complete sentences, normal respiratory pattern, no audible wheezes and no cough Cardio Jugular venous distension: no JVD GI Inspection: Yes normal to inspection Back/Spine/Pelvis Other: Denies tenderness on palpation in projection of the lumbar spine. The lumbar spine inspection reveals very well-healed scar in projection of approximately L3 all the way down to S1 lumbar vertebra. The patient reports no pain radiation into bilateral lower extremities. Patient reports no pain on Valsalva maneuver. Tenderness on palpation paraspinal spinal region approximately at location of T9-T10 thoracic vertebra. Neuro General: patient oriented x3 and gait normal Cranial nerves: Yes CN's II-XII intact bilaterally, Yes Equal, round and reactive pupils present, Yes Normal hearing present and Yes Ability to bilaterally elevate shoulders present Speech: No Abnormal speech present Gait exam (Neuro): Normal gait present Motor exam (neuro): 5/5 motor strength present throughout Sensory Exam: No Sensory deficit (Neuro) Extrem General: No pedal edema Psych Speech and movement: Normal speech and movement present Affect: normal affect Attitude: cooperative Thought process: Normal thought process present Thought content: Normal thought content present Insight: Good insight present (Psych) Judgement: Good judgement present (Psych) Results Reviewed Results Reviewed: XR THORACIC SPINE 02/13/2023 CLINICAL INFORMATION: FINDINGS: No evidence of acute compression deformity or traumatic subluxation. Rigid spine with pronounced overhanging fused anterior osteophytes. Moderate multilevel intervertebral disc height loss and facet arthropathy. No significant paraspinal soft tissue abnormality. Right upper quadrant surgical clips are seen. Rigid spine with large fused anterior osteophytes. No discrete fracture or subluxation. Moderate multilevel intervertebral disc height loss and facet arthropathy. R LUMBAR SPINE WITHOUT CONTRAST CLINICAL INFORMATION: Radiculopathy COMPARISON: None TECHNIQUE: MRI of the lumbar spine was obtained using routine sequences without contrast. FINDINGS: Postsurgical changes status post laminectomies from L3-L4 through L5-S1 and L4-S1 instrumented posterior interbody fusion. Please note the hardware would be better diagnostically assessed on CT. Solid interbody arthrodesis at L4-L5 and L5-S1. Normal lumbar lordosis is preserved. No significant spondylolisthesis. Vertebral body heights are maintained. There is no suspicious osseous lesion. There is multilevel disc desiccation. Disc height loss and osseous fusion across the T11-T12 and T12-L1 disc spaces. Type I Modic endplate changes along the T11 greater than L2 upper endplates. Level by level detail as follows: L1-L2: No spinal canal or neural foraminal stenosis. L2-L3: No spinal canal or neural foraminal stenosis. L3-L4: Post laminectomy changes. Left foraminal/far lateral annular fissuring. Bilateral facet arthrosis. No spinal canal dosis. Minimal bilateral neural foraminal encroachment. L4-L5: Posterior decompression and instrumented posterior interbody fusion. The spinal canal is decompressed. No neural foraminal stenosis. L5-S1: Posterior decompression and instrumented posterior interbody fusion. Disc osteophyte complex projecting into the bilateral neural foramina with minimal neural foraminal encroachment. The spinal canal is decompressed. The conus medullaris terminates at the level of L1-L2. The distal spinal cord is normal in appearance. No epidural fluid collection, hematoma, or mass. Postsurgical/denervation related severe fatty atrophy of the lower paraspinal musculature. Limited evaluation of the intra-abdominal structures without significant abnormalities. The abdominal aorta is of normal contour and caliber. IMPRESSION: Postsurgical changes status post L3-L4 through L5-S1 laminectomies and L4-S1 instrumented posterior interbody fusion. Solid interbody arthrodesis at L4-L5 and L5-S1. No significant spinal canal or neural foraminal stenosis at any level. Annular fissuring at L3-L4. Assessment & Plan Assessment & Plan (1) Postlaminectomy syndrome, lumbar: Code(s): M96.1 - Postlaminectomy syndrome, not elsewhere classified (2) Spondylosis of thoracic region without myelopathy or radiculopathy: Code(s): M47.814 - Spondylosis without myelopathy or radiculopathy, thoracic region (3) Chronic pain syndrome: Code(s): G89.4 - Chronic pain syndrome Plan This patient visited neurosurgeon Dr. Venegas's office and MRI of the lumbar spine was performed. He has postlaminectomy syndrome however he does not complain on much of the pain in the lower lumbar spine. Most of the pain he reports in the lower thoracic spine. He also had an x-ray of thoracic spine which demonstrates severe spondylosis and ankylosing spondylitis. He never had physical therapy for his condition. I will schedule him for physical therapy since the treatment of thoracic ankylosing spondylitis is very difficult with interventions. I will see this patient upon completion of 6 weeks of physical therapy. Orders: Orders PT Evaluation and Treatment Today G89.4 - Chronic pain syndrome, M47.814 - Spondylosis without myelopathy or radiculopathy, thoracic region Patient Instructions: I here by testify that I spent 46 minutes in conversation with this patient as well as evaluating his prior records, planning his care, organizing this note. Coding Level of Care Code New Pt Level 4 (16259) Diagnoses Postlaminectomy syndrome, lumbar M96.1 Spondylosis of thoracic region without myelopathy or radiculopathy M47.814 Chronic pain syndrome G89.4
== END 2023-04-24 15:18 | disposition home or self-care (01) ==
LOC: HO.PMC 15:17
PROVIDERS: PCP Physician Assistant; Referring Provider Physician Assistant; Visit Provider Anesthesiology
DX: M96.1 Postlaminectomy syndrome, not elsewhere classified (principal); M47.814 Spondylosis without myelopathy or radiculopathy, thoracic region; G89.4 Chronic pain syndrome
CPT/HCPCS: 99204

== ENCOUNTER → 2023-04-24 15:17 | Outpatient (BNVA) | payer MEDICARE, MEDICAID, SELFPAY | PROVIDERS: PCP Physician Assistant; Referring Provider Physician Assistant; Visit Provider Anesthesiology | DX: M96.1 Postlaminectomy syndrome, not elsewhere classified (principal); M47.814 Spondylosis without myelopathy or radiculopathy, thoracic region; G89.4 Chronic pain syndrome | CPT/HCPCS: 99202 ==

== ENCOUNTER 2023-05-01 14:01 | Outpatient (AMB) | payer MEDICARE, MEDICAID, SELFPAY ==
--- NOTE | 2023-05-01 14:08 | A.OFFVIS_ITS ---
Intake Vital Signs 05/01/23 14:09 Height 5 ft 4 in Weight 225 lb 7 oz BMI 38.7 BP 124/80 Blood Pressure Location Lt brachial Position Sitting Respiration 18 Pulse 96 Pulse Source Pulse Oximeter Pulse Oximetry (%) 66 L Oxygen Delivery Method Room Air Intake Visit Reasons: dimitris Allergies No Known Allergies Allergy (Verified 05/01/23 15:55) Medication List - Last Reconciled 05/01/23 by Giovany Estrella MD acetaminophen 500 mg PO Q6H 7 days amlodipine 10 mg PO DAILY 90 days carvedilol 3.125 mg PO BID CPAP (CPAP Machine/Device) Auto PAP 6-20 cm water cyclobenzaprine 10 mg PO Q8H 15 days ibuprofen 600 mg PO TID PRN lidocaine 5% 1 patch topical DAILY lisinopril 20 mg PO DAILY 90 days methocarbamol 750 mg PO Q6H naproxen 500 mg PO BID PRN 15 days pantoprazole (Protonix) 40 mg PO DAILY 90 days sildenafil 100 mg PO ONCE PRN 30 days terazosin 10 mg PO BEDTIME 90 days tramadol 50 mg PO TID PRN triamcinolone acetonide 0.1% 1 appl topical DAILY 15 days Do you need a note to return to daycare/school/sports/work: No HPI dimitris HPI Details This 67 years old very pleasant gentleman is being seen for the 1st time for management of his sleep apnea. He is grossly obese, with BMI 38.7. He states that he has put on some weight in the last 4 years. He gives history of poor sleep in the last 4-5 years, with frequent awakenings and periods of daytime somnolence. He underwent home-based sleep study, ordered by his primary care physician, on 02/12/2023. The results were consistent with severe obstructive sleep apnea with total sleep time AHI 37. And also had nocturnal hypoxemia with O2 sat below 88% for 49 minutes. The recommendation was that he should be started on CPAP therapy, and when he is using CPAP regularly he would have overnight oximetry recording to make sure that hypoxemia is corrected. This patient does have CPAP device at home but he is not using it regularly. He just try to use it 1st few nights and then gave up on that . I think he was missing proper Education for the necessity of using CPAP. So he has been non compliant, due to poor understanding, and not intentionally. His other comorbidities include hypertension BPH , GERD symptoms and chronic neck and back pain. [facility] reviewed. [facility] Medical History (Updated 05/01/23 @ 16:12 by Giovany Estrella MD) Nocturnal hypoxemia DIMITRIS (obstructive sleep apnea) Obesity (BMI 35.0-39.9 without comorbidity) PVC (premature ventricular contraction) HTN (hypertension) Surgical History Hx of cystoscopy History of lumbar surgery Social History Housing: Apartment Alcohol intake: unknown Patient Tobacco Use Status: Never used Tobacco e-Cigarette/Vaping Use: Never Used Second Hand Smoke Exposure: No service: No Current occupational status: employed Current occupational exposures/hazards: No Cognitive needs: No Hearing needs: No Vision needs: Yes Review of Systems Const All systems reviewed & are unremarkable except as noted in HPI and below Reports snoring Eyes Reports no additional complaints ENT Reports no additional complaints Card Denies chest pain, Denies irregular heart rhythm and Denies leg edema Resp Reports no additional complaints and Reports snoring GI Reports heartburn (GERD symptoms being controlled with med) Reports erectile dysfunction and Reports nocturia Musc Reports back pain Skin/Breast Reports system reviewed and no additional complaints, except as documented Neuro Reports no additional complaints Psych Reports no additional complaints Endo Reports no additional complaints Sundar/Lymph Reports no additional complaints Aller/Immun Reports no additional complaints Physical Exam Vital Signs: Last Vital Signs Pulse 96 05/01/23 14:09 Resp 18 05/01/23 14:09 BP 124/80 05/01/23 14:09 Pulse Ox 66 L 05/01/23 14:09 Oxygen Delivery Method Room Air 05/01/23 14:09 BMI result Body Mass Index 38.7 Const General: healthy appearing (Except for being overweight), comfortable, no acute distress, alert and awake Orientation/consciousness: patient oriented x3 HEENT Head: Yes normal to inspection General nose exam: No nasal polyps present and No nasal discharge present Face and sinus: Yes sinuses nontender Mouth: oropharynx abnormals (Narrow and crowded, Mallampati scale 4) Throat: Yes posterior oropharynx normal Eyes General: appearance normal, both eyes and all related structures Neck Neck: Yes normal visual inspection, Yes no lymphadenopathy, Yes trachea midline, Yes no JVD and Yes other (Neck circumference 17 in) Thyroid: Thyroid normal Chest Chest palpation & inspection: normal inspection of the chest, normal palpation of entire chest wall and no tenderness Resp Other: Percussion note is resonant, breath sounds are equal on both sides. No wheezes or crepitations are heard. Cardio Palpation: normal PMI Rate: regular rate Rhythm: regular rhythm Heart sounds: no gallops and no murmurs Peripheral pulses: Peripheral pulses 2+ throughout GI Palpation (GI): Soft to palpation, nontender, No hepatosplenomegaly present and no masses Auscultation: normal bowel sounds Back/Spine/Pelvis Thoracic/Lumbar Spine: thoracic and lumbar spine normal to inspection and thoraco-lumbar ROM limited Skin General skin exam: no rashes or lesions noted Neuro General: patient oriented x3 and no focal motor deficits Cranial nerves: Yes CN's II-XII intact bilaterally Extrem General: Yes normal to inspection, Yes no clubbing, cyanosis or edema and Yes no calf tenderness Psych Appearance: grossly normal and well kempt Speech and movement: Normal speech and movement present Results Reviewed Results Reviewed: THE RESULTS OF HOME-BASED SLEEP STUDY WERE REVIEWED AND HE DOES HAVE SEVERE OBSTRUCTIVE SLEEP APNEA WITH TOTAL SLEEP TIME AHI 37. ALSO HAS NOCTURNAL HYPOXEMIA WITH O2 SAT BELOW 88% FOR 49 MINUTES. THE COMPLIANCE REPORT IS REVIEWED AND NOTED ABOVE IN THE HISTORY AND PHYSICAL HE HAS NOT USED HIS CPAP DEVICE FOR MORE THAN A FEW DAYS. Assessment & Plan Assessment & Plan (1) Obesity (BMI 35.0-39.9 without comorbidity): Comment: HE FEELS IF HE IS IN GOOD HEALTH, AND IS NOT AWARE OF THE FACT THAT HE IS GROSSLY OVERWEIGHT. Code(s): E66.9 - Obesity, unspecified Plan: EDUCATED ABOUT HIS OBESITY AND THIS BEING THE CAUSE OF HIS OBSTRUCTIVE SLEEP APNEA. I RECOMMENDED THAT HE SHOULD START CUTTING DOWN THE INTAKE OF FOOD AND ALSO WALK DAILY , SO THAT HE CAN REDUCE WEIGHT THE GOAL WOULD BE TO LOSE ABOUT. 30 LB OF WEIGHT (2) DIMITRIS (obstructive sleep apnea): Comment: THIS GENTLEMAN HAS RATHER SEVERE DEGREE OF OBSTRUCTIVE SLEEP APNEA. I EXPLAINED TO HIM THE RESULTS. SO FOR IT REMAINS UN-TREATED Code(s): G47.33 - Obstructive sleep apnea (adult) (pediatric) Plan: EDUCATED ABOUT THE NEED TO TREAT HIS THE SLEEP APNEA, EDUCATED ABOUT USING CPAP. ONCE I EXPLAINED AND STRESSED THAT, NOW HE FEELS MOTIVATED TO USE CPAP EVERY NIGHT (3) Nocturnal hypoxemia: Comment: HE HAS NOCTURNAL HYPOXEMIA WHICH IS PART OF OBSTRUCTIVE SLEEP APNEA. IT IS EXPECTED THAT WITH THE USE OF CPAP IT SHOULD RESOLVE. HE DOES NOT SEEM TO HAVE ANY BASELINE PULMONARY DISEASE. Code(s): G47.34 - Idiopathic sleep related nonobstructive alveolar hypoventilation Plan: ONCE HE STARTS USING THE CPAP REGULARLY AN OVERNIGHT OXIMETRY RECORDING WILL BE DONE TO MAKE SURE THAT HYPOXEMIA IS CORRECTED. Coding Level of Care Code New Pt Level 4 (23954) Diagnoses Obesity (BMI 35.0-39.9 without comorbidity) E66.9 DIMITRIS (obstructive sleep apnea) G47.33 Nocturnal hypoxemia G47.34
[2023-05-01 14:09] VITALS: BP 124/80; PULSE 96; RESP 18; O2SAT 66; BMI 38.7
== END 2023-05-01 14:28 | disposition home or self-care (01) ==
PROVIDERS: PCP Physician Assistant; Referring Provider Physician Assistant; Visit Provider Internal Medicine
DX: G47.33 Obstructive sleep apnea (adult) (pediatric) (principal); G47.34 Idiopathic sleep related nonobstructive alveolar hypoventilation; E66.9 Obesity, unspecified; Z68.38 Body mass index [BMI] 38.0-38.9, adult
CPT/HCPCS: 99214

== ENCOUNTER → 2023-05-01 14:01 | Outpatient (BNVA) | payer MEDICARE, MEDICAID, SELFPAY | PROVIDERS: PCP Physician Assistant; Visit Provider Internal Medicine | DX: G47.33 Obstructive sleep apnea (adult) (pediatric) (principal); G47.34 Idiopathic sleep related nonobstructive alveolar hypoventilation; E66.9 Obesity, unspecified; Z68.38 Body mass index [BMI] 38.0-38.9, adult | CPT/HCPCS: 99212 ==

== ENCOUNTER 2023-05-10 08:40 | Outpatient (RCR) | payer MEDICARE, MEDICAID, SELFPAY ==
--- NOTE | 2023-05-10 11:14 | MHC.PT.EP ---
[facility] [place] [facility] [place] [facility] [place] [facility] [address] Leonard Carmona [address] [phone] F: [phone] F: [phone] F: [phone] F: [phone] Physical Therapy Plan of Care Date of Evaluation: 05/10/23 Date of Surgery: Diagnosis: LOW BACK PAIN (KP) Assessment: YFN IS A PLEASANT 67 YO MALE REPORTS DISTANT H/O OF LUMBAR SPINAL FUSION ?L4-5 ABOUT 10 YEARS AGO. REPORTS HE DID WELL AT THAT TIME BUT ABOUT A YEAR AGO PAIN RETURNED AND HE ALSO NOTES PAIN IN THE LEFT FOOT. HE REPORTS PAIN IS PRESENT IN THE MORNING, IMPROVES AFTER HE TAKES THE MEDICATION. HE STATES THAT MOVEMENT IMPROVES PAIN BUT HE CANNOT STAY IN ONE POSITION TOO LONG. PAIN IS DESCRIBED SHARP IN CENTRAL LOW BACK. HE ALSO STATES THAT SINCE THE PAIN STARTED HE ALSO GETS CRAMPS IN PAN CALVES AND RIGHT LEG WILL GIVE OUT AT TIMES. UPON EXAM HE DEMONSTRATES IMPAIRMENTS INCLUDING DECREASED ROM OF SPINE AND LEs, DECREASED STRENGTH OF CORE MUSCULATURE AND LE, DECREASED SOFT TISSUE MOBILITY, ALTERED GAIT AND POSTURE LEADING TO INCREASED LOW BACK PAIN. OF NOTE THERE IS EVIDENCE ON X-RAY OF THORACIC SPINE ANKYLOSISING SPONDYLITIS. HE ALSO HAS H/O L3-S1 FUSION. FUNCTIONAL LIMITATIONS INCLUDE DECREASED TOLERANCE TO LIFTING, REACHING, PUSHING, PULLING AND CARRYING. HE REPORTS DECREASED PARTICIPATION IN RECREATIONAL ACTIVITES AND DISRUPTED SLEEP. Frequency and Duration: The patient will be seen 3 X WEEK FOR 1 WEEK (Pt LEAVING FOR [facility] AND WILL BE AWAY FOR 2-3 MOS. Short Term Goals: INITIATE HEP AND PROMOTE SELF MANAGEMENT OF SYMPTOS Field Trainer Goals: Pt TO BE INDEPENDENT IN COMPREHENSIVE HOME PROGRAM THAT HE CAN CONTINUE WHILE AWAY OVER THE NEXT SEVERAL MONTHS Treatment Plan: Modalities to reduce pain, spasms and effusion. Manual therapy to restore motion and function. Therapeutic exercise to improve strength and flexibility. Neuromuscular re-education for posture and balance. Therapeutic activities to return to functional activities of daily living. Electronically signed by: NICHOLE BRADFORD PT DPT Please sign and return to therapist. Thank you for your referral.
== END 2023-06-28 07:39 | disposition home or self-care (01) ==
LOC: HO.PT 08:40
PROVIDERS: PCP Physician Assistant; Visit Provider Anesthesiology
DX: M47.814 Spondylosis without myelopathy or radiculopathy, thoracic region (principal); G89.4 Chronic pain syndrome
CPT/HCPCS: 97140; 97162; 97535